=== PATIENT | female | born 1955 | race Caucasian/White ===

== ENCOUNTER → 2017-01-23 | Outpatient (CLI) | payer OTHER ==
[~2017-01-23] MED LIST: AMIT25TA PO; AMLO10TA PO; COCO1000 PO; COUM1TAB14 PO; CYCL10TA PO; DOCU10CA PO; DULO1CAP2 PO; FISH100049 PO; FISHCAP5 PO; GLUC15002 PO; HYDR-3713 PO; MIRA3350 PO; MOM30SS PO; MULTCAP PO; POLY150C5 PO; PROT1TAB2 PO; ROXI1TAB2 PO; SENO8.6T2 PO; TYLE325T5 PO; VITA200038 PO; VITA500T3 PO; VOLT1GEL24 TD
[2017-01-23 11:15] LABS: BASO % 0.4 % (0.0-1.0); EOS # 0.1 K/mm3 (0.0-0.50); EOS % 2.3 % (0.0-3.0); LYMPH # 1.4 K/mm3 (1.5-4.5); LYMPH % 32.1 % (24.0-44.0); MEAN CORPUSCULAR HEMOGLOBIN 31.9 pg (27.0-33.0); MEAN CORPUSCULAR HGB CONC 34.9 g/dl (32.0-36.5); MEAN CORPUSCULAR VOLUME 91.6 fl (80.0-96.0); MONO # 0.3 K/mm3 (0.0-0.8); MONO % 6.6 % (0.0-5.0); NEUTROPHILS # 2.4 K/mm3 (1.8-7.7); RED CELL DISTRIBUTION WIDTH 13.8 % (11.5-14.5); WHITE BLOOD COUNT 4.3 K/mm3 (4.0-10.0)
[2017-01-23 11:46] LABS: ALBUMIN 3.4 GM/DL (3.2-5.2); ALBUMIN/GLOBULIN RATIO 1.26 (1.00-1.93); ALKALINE PHOSPHATASE 88 U/L (45-117); ALT/SGPT 28 U/L (12-78); ANION GAP 7 MEQ/L (8-16); AST/SGOT 15 U/L (15-37); BILIRUBIN,TOTAL 0.5 MG/DL (0.2-1.0); BLOOD UREA NITROGEN 19 MG/DL (7-18); CALCIUM LEVEL 8.7 MG/DL (8.5-10.1); CARBON DIOXIDE LEVEL 28 MEQ/L (21-32); CHLORIDE LEVEL 112 MEQ/L (98-107); CHOLESTEROL LEVEL 144 MG/DL (<200); CREATININE FOR GFR 0.92 MG/DL (0.55-1.02); FREE T4 1.03 NG/DL (0.76-1.46); GLOMERULAR FILTRATION RATE > 60.0 (>51); GLUCOSE, FASTING 89 MG/DL (70-105); POTASSIUM SERUM 4.1 MEQ/L (3.5-5.1); SODIUM LEVEL 147 MEQ/L (136-145); TOTAL PROTEIN 6.1 GM/DL (6.4-8.2); TRIGLYCERIDES LEVEL 96 MG/DL (<150)
== END ==
LOC: M LRY 08:09
PROVIDERS: ATTEND Nurse Practitioner Adult Health
DX: D64.9 Anemia, unspecified (principal); E55.9 Vitamin D deficiency, unspecified; Z79.899 Other long term (current) drug therapy; I10 Essential (primary) hypertension

== ENCOUNTER → 2017-05-07 | Outpatient (CLI) | payer OTHER ==
[2017-05-07 12:08] LABS: BASO % 0.9 % (0.0-1.0); EOS # 0.1 K/mm3 (0.0-0.50); EOS % 2.2 % (0.0-3.0); LARGE UNSTAINED CELL # 0.1 K/mm3 (0.0-0.4); LARGE UNSTAINED CELL % 2.4 % (0.0-4.0); LYMPH # 1.4 K/mm3 (1.5-4.5); LYMPH % 32.2 % (24.0-44.0); MEAN CORPUSCULAR HEMOGLOBIN 32.8 pg (27.0-33.0); MEAN CORPUSCULAR HGB CONC 34.8 g/dl (32.0-36.5); MEAN CORPUSCULAR VOLUME 94.2 fl (80.0-96.0); MONO # 0.3 K/mm3 (0.0-0.8); MONO % 7.1 % (0.0-5.0); NEUTROPHILS # 2.3 K/mm3 (1.8-7.7); NEUTROPHILS % 55.3 % (36.0-66.0); PLATELET COUNT, AUTOMATED 220 k/mm3 (150-450); RED CELL DISTRIBUTION WIDTH 13.3 % (11.5-14.5); WHITE BLOOD COUNT 4.2 K/mm3 (4.0-10.0)
[2017-05-07 12:25] LABS: ALBUMIN 3.3 GM/DL (3.2-5.2); ALBUMIN/GLOBULIN RATIO 1.22 (1.00-1.93); ALKALINE PHOSPHATASE 86 U/L (45-117); ALT/SGPT 27 U/L (12-78); ANION GAP 3 MEQ/L (8-16); AST/SGOT 14 U/L (15-37); BILIRUBIN,TOTAL 0.6 MG/DL (0.2-1.0); BLOOD UREA NITROGEN 14 MG/DL (7-18); CALCIUM LEVEL 8.8 MG/DL (8.5-10.1); CARBON DIOXIDE LEVEL 30 MEQ/L (21-32); CHLORIDE LEVEL 113 MEQ/L (98-107); CHOLESTEROL LEVEL 134 MG/DL (<200); CREATININE FOR GFR 0.91 MG/DL (0.55-1.02); FREE T4 1.02 NG/DL (0.76-1.46); GLOMERULAR FILTRATION RATE > 60.0 (>51); GLUCOSE, FASTING 79 MG/DL (70-105); POTASSIUM SERUM 4.1 MEQ/L (3.5-5.1); SODIUM LEVEL 146 MEQ/L (136-145); TRIGLYCERIDES LEVEL 107 MG/DL (<150)
== END ==
LOC: M LRY 07:54
PROVIDERS: ATTEND Nurse Practitioner Adult Health
DX: Z79.899 Other long term (current) drug therapy (principal); D64.9 Anemia, unspecified; E55.9 Vitamin D deficiency, unspecified; F41.9 Anxiety disorder, unspecified

== ENCOUNTER → 2017-11-10 | Outpatient (CLI) | payer MEDICARE, BC ==
[~2017-11-10] MED LIST changes: -SENO8.6T2 PO; +SENO8.6T5 PO; +VOLT1GEL15 TD; -VOLT1GEL24 TD
--- NOTE | 2017-11-10 10:09 | REPMRS ---
Patient History The patient states she had a clinical breast exam in 11/09 Family history of colorectal cancer in father at age 50 or over. Benign excisional biopsy of the left breast, 1981. Digital Woman Screen Mammo: November 10, 2017 - Exam #: [id number] Bilateral CC and MLO view(s) were taken. Technologist: Cathi Friedman, Technologist Prior study comparison: November 08, 2016, digital woman screen mammo performed at [facility]. November 07, 2015, digital woman screen mammo performed at [facility]. FINDINGS: There are scattered fibroglandular densities. There has been no change in the appearance of the mammogram from the prior studies. There is a mild amount of residual fibroglandular tissue which is fairly symmetric. There is no interval development of dominant mass, architectural distortion, or clustered microcalcification suggestive of malignancy. ASSESSMENT: BI-RADS/ACR category 1 mammogram. Negative. Recommendation Routine screening mammogram in 1 year (for women over age 40). This mammogram was interpreted with the aid of an FDA-approved computer-aided dectection system. Electronically Signed By: Santy Mart MD 11/10/17 [id number]
== END ==
LOC: M WHC 08:06
PROVIDERS: ATTEND Nurse Practitioner Family
DX: Z12.31 Encounter for screening mammogram for malignant neoplasm of breast (principal); Z92.89 Personal history of other medical treatment

== ENCOUNTER → 2017-12-19 | Outpatient (CLI) | payer MEDICARE, OTHER ==
[2017-12-19 12:13] LABS: ESTIMATED AVERAGE GLUCOSE 94 MG/DL (60-110); HEMOGLOBIN A1c 4.9 %
[2017-12-19 12:14] LABS: TOTAL 25(OH) VITAMIN D 28.7 NG/ML (30.0-100.0)
[2017-12-19 12:19] LABS: ALBUMIN 3.4 GM/DL (3.2-5.2); ALBUMIN/GLOBULIN RATIO 1.21 (1.00-1.93); ALKALINE PHOSPHATASE 86 U/L (45-117); ALT/SGPT 17 U/L (12-78); ANION GAP 5 MEQ/L (8-16); AST/SGOT 10 U/L (7-37); BILIRUBIN,TOTAL 0.6 MG/DL (0.2-1.0); BLOOD UREA NITROGEN 19 MG/DL (7-18); CALCIUM LEVEL 8.6 MG/DL (8.8-10.2); CARBON DIOXIDE LEVEL 29 MEQ/L (21-32); CHLORIDE LEVEL 112 MEQ/L (98-107); CHOLESTEROL LEVEL 154 MG/DL (<200); CHOLESTEROL RISK RATIO 2.444 (<5); CREATININE FOR GFR 0.85 MG/DL (0.55-1.02); FREE T4 1.05 NG/DL (0.76-1.46); GLOMERULAR FILTRATION RATE > 60.0 (>45); GLUCOSE, FASTING 89 MG/DL (70-100); HDL CHOLESTEROL 63 MG/DL (>40); LDL CHOLESTEROL 70.8 MG/DL (<100); NON-HDL-C 91 MG/DL; POTASSIUM SERUM 4.2 MEQ/L (3.5-5.1); SODIUM LEVEL 146 MEQ/L (136-145); TOTAL PROTEIN 6.2 GM/DL (6.4-8.2); TRIGLYCERIDES LEVEL 101 MG/DL (<150)
[2017-12-19 12:28] LABS: BASO % 0.5 % (0.0-1.0); EOS # 0.1 10^3/uL (0.0-0.50); EOS % 2.1 % (0.0-3.0); HEMATOCRIT 38.2 % (36.0-47.0); HEMOGLOBIN 12.8 g/dl (12.0-16.0); IMMATURE GRANULOCYTE % 0.3 % (0-0); LYMPH # 1.3 10^3/uL (1.5-4.5); MEAN CORPUSCULAR HEMOGLOBIN 32.3 pg (27.0-33.0); MEAN CORPUSCULAR HGB CONC 33.5 g/dl (32.0-36.5); MEAN CORPUSCULAR VOLUME 96.5 fl (80.0-96.0); MONO # 0.3 10^3/uL (0.0-0.8); MONO % 6.5 % (0.0-5.0); NEUTROPHILS # 2.2 10^3/uL (1.8-7.7); NEUTROPHILS % 57.6 % (36.0-66.0); PLATELET COUNT, AUTOMATED 211 10^3/uL (150-450); RED BLOOD COUNT 3.96 10^6/uL (4.00-5.40); RED CELL DISTRIBUTION WIDTH 13.3 % (11.5-14.5); WHITE BLOOD COUNT 3.9 10^3/uL (4.0-10.0)
== END ==
LOC: M LRY 07:55
DX: E55.9 Vitamin D deficiency, unspecified (principal); Z98.84 Bariatric surgery status; Z79.899 Other long term (current) drug therapy; D64.9 Anemia, unspecified
CPT/HCPCS: 84443

== ENCOUNTER 2018-01-11 16:28 | Emergency (ER) | payer OTHER, MEDICARE ==
[2018-01-11] MEDS ORDERED: NORCO 5/325MG TABLET (BULK FOR ED) PO (18:00)
== END 2018-01-11 18:01 | disposition home or self-care (01) ==
LOC: M ED 16:28
DX: Z04.1 Encounter for examination and observation following transport accident (principal); S13.4XXA Sprain of ligaments of cervical spine, initial encounter; V43.52XA Car driver injured in collision with other type car in traffic accident, initial encounter; Y92.410 Unspecified street and highway as the place of occurrence of the external cause; I10 Essential (primary) hypertension; F33.9 Major depressive disorder, recurrent, unspecified; M19.90 Unspecified osteoarthritis, unspecified site; M54.9 Dorsalgia, unspecified; G89.29 Other chronic pain; Z79.01 Long term (current) use of anticoagulants; Z79.899 Other long term (current) drug therapy; Z88.0 Allergy status to penicillin; Z88.5 Allergy status to narcotic agent; Z98.0 Intestinal bypass and anastomosis status; Z98.890 Other specified postprocedural states
CPT/HCPCS: 72125

== ENCOUNTER → 2018-05-18 | Outpatient (CLI) | payer MEDICARE, OTHER ==
[2018-05-18 12:24] LABS: BASO % 0.6 % (0.0-1.0); EOS # 0.1 10^3/uL (0.0-0.50); EOS % 1.5 % (0.0-3.0); HEMATOCRIT 38.5 % (36.0-47.0); HEMOGLOBIN 13.5 g/dl (12.0-15.5); IMMATURE GRANULOCYTE % 0.2 % (0-3.0); LYMPH # 1.5 10^3/uL (1.5-4.5); LYMPH % 31.8 % (24.0-44.0); MEAN CORPUSCULAR HEMOGLOBIN 32.3 pg (27.0-33.0); MEAN CORPUSCULAR HGB CONC 35.1 g/dl (32.0-36.5); MEAN CORPUSCULAR VOLUME 92.1 fl (80.0-96.0); MONO # 0.3 10^3/uL (0.0-0.8); MONO % 6.4 % (0.0-5.0); NEUTROPHILS # 2.8 10^3/uL (1.8-7.7); NEUTROPHILS % 59.5 % (36.0-66.0); PLATELET COUNT, AUTOMATED 202 10^3/uL (150-450); RED BLOOD COUNT 4.18 10^6/uL (4.00-5.40); RED CELL DISTRIBUTION WIDTH 13.8 % (11.5-14.5); WHITE BLOOD COUNT 4.7 10^3/uL (4.0-10.0)
[2018-05-18 13:27] LABS: ESTIMATED AVERAGE GLUCOSE 100 MG/DL (60-110); HEMOGLOBIN A1c 5.1 %
[2018-05-18 14:28] LABS: ALBUMIN 3.6 GM/DL (3.2-5.2); ALBUMIN/GLOBULIN RATIO 1.29 (1.00-1.93); ALKALINE PHOSPHATASE 101 U/L (45-117); ALT/SGPT 24 U/L (12-78); ANION GAP 8 MEQ/L (8-16); AST/SGOT 14 U/L (7-37); BILIRUBIN,TOTAL 0.7 MG/DL (0.2-1.0); BLOOD UREA NITROGEN 17 MG/DL (7-18); CALCIUM LEVEL 8.9 MG/DL (8.8-10.2); CARBON DIOXIDE LEVEL 28 MEQ/L (21-32); CHLORIDE LEVEL 109 MEQ/L (98-107); CHOLESTEROL LEVEL 170 MG/DL (<200); CHOLESTEROL RISK RATIO 2.786 (<5); CREATININE FOR GFR 0.91 MG/DL (0.55-1.30); FREE T4 0.94 NG/DL (0.76-1.46); GLOMERULAR FILTRATION RATE > 60.0 (>45); GLUCOSE, FASTING 82 MG/DL (70-100); HDL CHOLESTEROL 61 MG/DL (>40); LDL CHOLESTEROL 89.4 MG/DL (<100); NON-HDL-C 109 MG/DL; POTASSIUM SERUM 4.1 MEQ/L (3.5-5.1); SODIUM LEVEL 145 MEQ/L (136-145); TOTAL PROTEIN 6.4 GM/DL (6.4-8.2); TRIGLYCERIDES LEVEL 98 MG/DL (<150)
== END ==
LOC: M LAB 11:54
DX: D64.9 Anemia, unspecified (principal); E55.9 Vitamin D deficiency, unspecified; Z51.81 Encounter for therapeutic drug level monitoring; Z79.899 Other long term (current) drug therapy; H02.423 Myogenic ptosis of bilateral eyelids
CPT/HCPCS: 84443

== ENCOUNTER → 2018-05-18 | Outpatient (CLI) | payer MEDICARE, OTHER ==
[2018-05-18 13:30] LABS: COLLAGEN EPINEPHRINE > 300 SECONDS (74-162)
[2018-05-18 13:31] LABS: COLLAGEN ADP 106 SECONDS (56-103)
== END ==
LOC: M LAB 11:47
DX: H02.423 Myogenic ptosis of bilateral eyelids (principal)

== ENCOUNTER → 2018-05-21 | Outpatient (CLI) | payer MEDICARE, OTHER | LOC: M LRY 13:55 | DX: Z01.812 Encounter for preprocedural laboratory examination (principal) | CPT/HCPCS: 71046 ==

== ENCOUNTER → 2018-06-01 | Outpatient (CLI) | payer MEDICARE, OTHER, BC ==
[2018-06-01 09:42] LABS: COLLAGEN EPINEPHRINE 83 SECONDS (74-162)
== END ==
LOC: M LAB 08:17
DX: H02.423 Myogenic ptosis of bilateral eyelids (principal)
CPT/HCPCS: 36415

== ENCOUNTER → 2018-06-04 | Outpatient (CLI) | payer MEDICARE, OTHER, BC ==
[2018-06-04 20:35] LABS: URIC ACID 5.2 MG/DL (2.6-6.0)
[2018-06-04 20:36] LABS: BASO % 0.3 % (0.0-1.0); EOS % 0.4 % (0.0-3.0); HEMATOCRIT 38.9 % (36.0-47.0); HEMOGLOBIN 13.2 g/dl (12.0-15.5); IMMATURE GRANULOCYTE % 0.3 % (0-3.0); LYMPH # 2.6 10^3/uL (1.5-4.5); LYMPH % 28.8 % (24.0-44.0); MEAN CORPUSCULAR HEMOGLOBIN 32.2 pg (27.0-33.0); MEAN CORPUSCULAR HGB CONC 33.9 g/dl (32.0-36.5); MEAN CORPUSCULAR VOLUME 94.9 fl (80.0-96.0); MONO # 0.5 10^3/uL (0.0-0.8); MONO % 5.3 % (0.0-5.0); NEUTROPHILS # 5.9 10^3/uL (1.8-7.7); NEUTROPHILS % 64.9 % (36.0-66.0); PLATELET COUNT, AUTOMATED 229 10^3/uL (150-450); RED CELL DISTRIBUTION WIDTH 13.6 % (11.5-14.5); WHITE BLOOD COUNT 9.1 10^3/uL (4.0-10.0)
[2018-06-04 21:43] LABS: ERYTHROCYTE SEDIMENTATION RATE 6 mm/hr (0-30)
[2018-06-16 00:07] LABS: ANTINUCLEAR ANTIBODIES DIRECT Negative (Negative); HLA-B27 Negative (.)
== END ==
LOC: M LRY 16:14
DX: M10.9 Gout, unspecified (principal)
CPT/HCPCS: 84550

== ENCOUNTER 2018-06-18 09:22 | Day surgery (SDC) | payer MEDICARE, BC, OTHER ==
[2018-06-18] MEDS: NS 1,000 ML IV (09:30)
[2018-06-18] MEDS ORDERED: LIDOCAINE 2% INJ 100 MG/5 ML SDV (FOR ANES.) As Ordered (10:46)
[2018-06-18] MEDS ORDERED: PROPOFOL 200 MG/20 ML VIAL As Ordered (10:46)
== END 2018-06-18 11:27 | disposition home or self-care (01) ==
LOC: M OPP 09:22
DX: Z12.11 Encounter for screening for malignant neoplasm of colon (principal); Z80.0 Family history of malignant neoplasm of digestive organs; K57.30 Diverticulosis of large intestine without perforation or abscess without bleeding; I10 Essential (primary) hypertension; M19.90 Unspecified osteoarthritis, unspecified site; M54.9 Dorsalgia, unspecified; F32.9 Major depressive disorder, single episode, unspecified; Z98.84 Bariatric surgery status; Z96.653 Presence of artificial knee joint, bilateral; E66.9 Obesity, unspecified; Z88.5 Allergy status to narcotic agent; Z88.0 Allergy status to penicillin; Z79.82 Long term (current) use of aspirin; Z79.899 Other long term (current) drug therapy
CPT/HCPCS: G0105

== ENCOUNTER → 2019-02-02 | Outpatient (CLI) | payer MEDICARE, BC ==
[~2019-02-02] MED LIST changes: +ASPI1TAB PO; +BENA25CA4 PO; +D-10TAB PO; +FURO40TA2; +KRIL1CAP5 PO; +METH4PACK; +OLME40TA PO; +RANI-280 PO; +TIZA4CAP; +VALS1TAB47
--- NOTE | 2019-02-02 11:45 | REPMRS ---
Patient History The patient states she had a clinical breast exam in 02/09 Family history of colorectal cancer at age 50 or over in father. Benign excisional biopsy of the left breast, 1982. Digital Woman Screen Mammo: February 02, 2019 - Exam #: [id number] Bilateral CC and MLO view(s) were taken. Technologist: Cathi Friedman, Technologist Prior study comparison: November 10, 2017, digital woman screen mammo performed at [facility]. November 08, 2016, digital woman screen mammo performed at [facility]. FINDINGS: There are scattered fibroglandular densities. There has been no change in the appearance of the mammogram from the prior studies. There is a mild amount of residual fibroglandular tissue which is fairly symmetric. There is no interval development of dominant mass, architectural distortion, or clustered microcalcification suggestive of malignancy. Scattered lymph nodes are seen in the axillae. Large coarse benign appearing calcifications are stable on the left. There is a benign appearing intramammary node in the upper outer quadrant of the left breast. 3-D tomosynthesis shows no additional findings. No significant changes when compared with prior studies. Assessment: BI-RADS/ACR category 2 mammogram. Benign Findings. Recommendation Routine screening mammogram in 1 year (for women over age 40). This mammogram was interpreted with the aid of an FDA-approved computer-aided dectection system. A. Negative x-ray reports should not delay biopsy if a dominant or clinically suspicious mass is present. B. Four to eight percent of cancers are not identified by mammography. C. Adenosis and dense breast may obscure an underlying neoplasm. Electronically Signed By: Wesley Fox MD 02/02/19 [id number]
== END ==
LOC: M WHC 07:59
PROVIDERS: ATTEND Nurse Practitioner Family
DX: Z01.419 Encounter for gynecological examination (general) (routine) without abnormal findings (principal); Z12.31 Encounter for screening mammogram for malignant neoplasm of breast; R92.1 Mammographic calcification found on diagnostic imaging of breast; Z86.018 Personal history of other benign neoplasm
CPT/HCPCS: 77063; 77067; G0101

== ENCOUNTER → 2020-01-18 | Outpatient (CLI) | payer MEDICARE, BC, OTHER ==
[~2020-01-18] MED LIST changes: -ASPI1TAB PO; +ASPI81TA26 PO; +CYAN500T8 PO; +CYCL-707 PO; -CYCL10TA PO; -DULO1CAP2 PO; +DULO1CAP5 PO; -VALS1TAB47; +VALS1TAB67; -VITA500T3 PO
--- NOTE | 2020-01-18 15:27 | REPMRS ---
Patient History The patient states she has not had a clinical breast exam in over a year. Family history of colorectal cancer at age 50 or over in father. Benign excisional biopsy of the left breast, 1982. Diagnostic Bilateral Mammo: January 18, 2020 - Exam #: [id number] Bilateral CC and MLO view(s) were taken. Technologist: Sandy Ortiz, Technologist Prior study comparison: February 02, 2019, bilateral digital woman screen mammo performed at [facility]. November 10, 2017, digital woman screen mammo performed at [facility]. November 08, 2016, digital woman screen mammo performed at [facility]. FINDINGS: There are scattered fibroglandular densities. There has been no change in the appearance of the mammogram from the prior studies. There is a mild amount of scattered fibroglandular density which is fairly symmetric. There is no interval development of dominant mass, architectural distortion, or grouped microcalcification suggestive of malignancy. 3-D tomosynthesis shows no additional findings. Assessment: BI-RADS/ACR category 1 mammogram. Negative Mammogram. Recommendation Routine screening mammogram of both breasts in 1 year (for women over age 40). This patient's Lifetime Breast Cancer Risk is estimated at 5.7 %. This mammogram was interpreted with the aid of an FDA-approved computer-aided dectection system. Electronically Signed By: Rogelio Palomo MD 01/18/20 [id number]
== END ==
LOC: M WHC 13:31
PROVIDERS: ATTEND Nurse Practitioner Adult Health
DX: N64.4 Mastodynia (principal); Z80.0 Family history of malignant neoplasm of digestive organs; Z86.018 Personal history of other benign neoplasm
CPT/HCPCS: 77066; G0279

== ENCOUNTER → 2020-02-28 | Outpatient (CLI) | payer MEDICARE, BC, OTHER ==
[~2020-02-28] MED LIST changes: -CYCL-707 PO; +CYCL10TA PO
--- NOTE | 2020-02-28 11:45 | REP ---
RIGHT HAND, AP AND LATERAL: AP and lateral views of the right hand are performed. There is no acute fracture or dislocation. Ill-defined focal calcifications are seen medial to the 1st metacarpophalangeal joint. These are nonspecific. This could be due to prior trauma. There is mild diffuse narrowing of the proximal interphalangeal joints as well as 3rd distal interphalangeal joint. There is mild narrowing of the 1st metacarpophalangeal joint. Moderate narrowing is seen of the 2nd, 4th, and 5th distal interphalangeal joints with mild to moderate spurring. IMPRESSION: Degenerative changes most significant at the distal interphalangeal joints of the 2nd through 5th digits. Focal ill-defined calcifications in the soft tissues medial to the 1st metacarpophalangeal joint, nonspecific. This may be due to prior trauma. Electronically Signed by Santy Mart MD 02/28/2020 03:11 P
== END ==
LOC: M LRY 09:38
PROVIDERS: ATTEND Nurse Practitioner Adult Health
DX: M19.041 Primary osteoarthritis, right hand (principal)

== ENCOUNTER → 2020-12-24 | Outpatient (CLI) | payer MEDICARE, BC, OTHER ==
[~2020-12-24] MED LIST changes: -AMIT25TA PO; +AMIT25TA17 PO; -COUM1TAB14 PO; +COUM4TAB8 PO; +CYAN500T14 PO; -CYAN500T8 PO; +CYCL-707 PO; -CYCL10TA PO; +GABA-282 PO; +IRBE300T7 PO; +SIMV20TA22 PO; +TRAM50TA2 PO
== END ==
LOC: M LABSMTC 08:31
PROVIDERS: ATTEND Anesthesiology
DX: Z01.812 Encounter for preprocedural laboratory examination (principal); Z20.822 Contact with and (suspected) exposure to COVID-19

== ENCOUNTER 2020-12-29 06:08 | Day surgery (SDC) | payer MEDICARE, BC, OTHER ==
[~2020-12-29] VITALS: Ht 157.5 cm; Wt 98.0 kg
--- OUTSIDE RECORDS SUMMARY | 2020-12-29 06:12 | CCD ---
Author Author [facility] Organization [facility] Address Unknown Phone Unavailable Care Team Providers Care Flooring Installer Name Role Phone Orin Eric Unavailable PROBLEMS Type Condition ICD9-CM Code [id number] Code Onset Dates Condition S tatus SNOMED Code Notes Problem Bariatric surgery status Z98.84 Active 0148507 06 Problem Generalized osteoarthrosis, involving multiple sites M15.9 Active 360343375 Problem Vitamin D deficiency E55.9 Active 44038922 Problem Rectocele N81.6 Active 143729252 Problem Prolapse of vaginal plunkett without uterine prolapse N81.10 Active 612937150 Problem Vaginal enterocele N81.5 Active 149995125 Problem Insomnia, unspecified G47.00 Active 270424326 Problem Panniculitis M79.3 Active 43415787 Problem Dysthymic disorder F34.1 Active 21571795 Problem Enterocele 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 Active 933977065 ALLERGIES Allergen (clinical drug ingredient) Drug/Non Drug Allergy do cumented on EMR Reaction Allergy Type Onset Date Status morphine vomiting Non Drug Allergy Active PCN swelling Non Drug Allergy Active ENCOUNTERS from 1957 to 2020-10-03 Encounter Location Date Provider Diagnosis [facility] [address] [place] [phone] Sep, Orin Eric IMMUNIZATIONS Vaccine Route Administration Date Status TDAP 0.5mL (Boostrix) IM Intramuscular Jan 18, 2013 Administe red Influenza (6mo & up) Fluzone Unknown January 29, 2016 Ref used Influenza (6mo & up) Fluzone Unknown Dec 19, 2014 Ref used SOCIAL HISTORY Tobacco Use: Social History Observation Description Date Details (start date - stop date) Never Smoker Sex Assigned At : Social History Observation Description Sex Assigned At Unknown Education: Question Answer Notes Level of Education: High School Congregational: Question Answer Notes Congregational 33 None Alcohol Screening: Question Answer Notes Did you have a drink containing alcohol in the past year? No Points 0 Interpretation Negative BMI Care Goal Follow-Up Question Answer Notes Above Normal BMI Follow-Up Giving encouragement to exercise Tobacco Use: Question Answer Notes Are you a: never smoker never smoker REASON FOR REFERRAL No Information VITAL SIGNS No information MEDICATIONS Medication SIG (Take, Route, Frequency, Duration) Start Date En d Date Status Tizanidine HCl 4 MG 1 capsule as needed Orally Three times a day Active Gabapentin 300 MG 1 capsule Orally Once a day for 30 day(s) Active Tramadol HCl 50 MG 1 tablet as needed Orally Once a day Active Vitamin C 1000 MG 1 tablet Orally Once a day for 30 day(s) Active Multivitamins as directed Orally Active Vitamin D 2000 UNIT 1 tablet Orally Once a day Active Vitamin B 12 100 MCG 1 Orally takes 1000mcg. Active Simvastatin 20 MG 1 tablet in the evening Orally Once a day for 30 day(s) Active Pramipexole Dihydrochloride 0.25 MG 1 tablet Orally Once a day as n eeded Active Krill Oil 1000 MG as directed Orally Acti ve Furosemide 20 MG 1 tablet Orally Once a day/as needed Active Aspirin Adult Low Strength A ctive Irbesartan 300 MG 1 tablet Orally Once a day for 30 day(s) Active PROCEDURES No Information RESULTS No Results REASON FOR VISIT AUTHORIZATION MEDICAL (GENERAL) HISTORY Type Description Date Medical History insomnia Medical History hx. of elvated cholesterol Medical History hx. of hypertension Medical History hx. of depression Medical History knee pain SOS Medical History Vitamin d deficiency Medical History chronic back pain Sees SOS Medical History arthritic joints Surgical History gastric bypass 01/03 Surgical History CECIL with bilateral salpingectomy 07/29 Surgical History breast lump removed-left/benign 2001 Surgical History colonoscopy Surgical History lasik 11/02 Surgical History left total knee done 03/2015 Surgical History right total knee 11/2015 Hospitalization History see surgeries Goals Section No Information Health Concerns No Information MEDICAL EQUIPMENT No Information MENTAL STATUS No Information FUNCTIONAL STATUS No Information ASSESSMENTS No Information PLAN OF TREATMENT Next Appt Details Provider Name:Orin Eric, 2020-10-31 0 8:20:00 AM, [facility] [place], [phone], Provider Name:Orin Eric, 2020-12-07 0 3:00:00 PM, [address] [place] [address], [phone], Provider Name:Orin Eric, 2021-01-05 0 7:30:00 AM, [address] [place] [address], [phone], Provider Name:Ron Hartman, 2021-01-05 07:30:00 AM, [address] [place] [address], [phone], Provider Name:Orin Eric, 2021-01-22 0 8:20:00 AM, [address] [place] [address], [phone], Provider Name:Orin Eric, 2021-02-20 0 8:20:00 AM, [address] [place] [address], [phone], Insurance Providers Payer Name Payer Address Payer Phone Insured Name Patient Relati onship to Insured Coverage Start Date Coverage End Date MEDICARE Part A and B [address] [facility] [phone] [employer] [facility] [address] [facility] [id number] [employer]DOÑE[employer]
--- OUTSIDE RECORDS SUMMARY | 2020-12-29 06:12 | CCD ---
Author Author [facility] Organization [facility] Address Unknown Phone Unavailable Care Team Providers Care Business Intelligence Reporting Analyst Name Role Phone Orin Eric Unavailable PROBLEMS Type Condition ICD9-CM Code [id number] Code Onset Dates Condition S tatus SNOMED Code Notes Problem Bariatric surgery status Z98.84 Active 9099284 06 Problem Generalized osteoarthrosis, involving multiple sites M15.9 Active 646984682 Problem Vitamin D deficiency E55.9 Active 11458874 Problem Rectocele N81.6 Active 178611153 Problem Prolapse of vaginal plunkett without uterine prolapse N81.10 Active 813977166 Problem Vaginal enterocele N81.5 Active 757927570 Problem Insomnia, unspecified G47.00 Active 414587242 Problem Panniculitis M79.3 Active 06657636 Problem Dysthymic disorder F34.1 Active 38425324 Problem Enterocele K46.9 Active 689651611 ALLERGIES Allergen (clinical drug ingredient) Drug/Non Drug Allergy do cumented on EMR Reaction Allergy Type Onset Date Status morphine vomiting Non Drug Allergy Active PCN swelling Non Drug Allergy Active ENCOUNTERS from 1957 to 2020-12-17 Encounter Location Date Provider Diagnosis [facility] [address] [place] [phone] 14 Nov, 2020 Orin Hernesto Rectocele N81.6 IMMUNIZATIONS Vaccine Route Administration Date Status TDAP [...] History Observation Description Sex Assigned At Unknown Tobacco Use: Question Answer Notes Are you a: never smoker never smoker REASON FOR REFERRAL No Information VITAL SIGNS Weight 216 lbs Nov, Height 62 in Nov, BMI 39.5 kg/m2 Nov, Blood pressure systolic 134 mm Hg Nov, Blood pressure diastolic 86 mm Hg Nov, MEDICATIONS Medication SIG (Take, Route, Frequency, Duration) Notes Start Da te End Date Status Ibuprofen 800 MG 1 tablet with food or milk as needed Ora lly Three times a day Nov, Active Furosemide 20 MG 1 tablet Orally Once a day/as needed Active Multivitamins as directed Orally Act trav Krill Oil 1000 MG as directed Orally Active Pramipexole Dihydrochloride 0.25 MG 1 tablet Orally Once a day as nee ded Not-Taking Vitamin C 1000 MG 1 tablet Orally Once a day for 30 day(s) Active Vitamin D 2000 UNIT 1 tablet Orally Once a day Active Gabapentin 300 MG 1 capsule Orally Once a day for 30 day(s) Active Irbesartan 300 MG 1 tablet Orally Once a day for 30 day(s) Active Tizanidine HCl 4 MG 1 capsule as needed Orally Three times a day Active Simvastatin 20 MG 1 tablet in the evening Orally Once a day for 30 da y(s) Active Percocet 5-325 MG 1 tablet as needed Orally every 6 hrs Nov, Active Vitamin B 12 100 MCG 1 Orally takes 1000mcg. Active Aspirin Adult Low Strength Active Tramadol HCl 50 MG 1 tablet as needed Orally Once a day Active PROCEDURES No Information RESULTS No Results REASON FOR VISIT PRE OP SURG 01/05/21 MEDICAL (GENERAL) HISTORY Type Description Date Medical [...] No Information FUNCTIONAL STATUS No Information ASSESSMENTS Encounter Date Diagnosis Assessment Notes Treatment Notes Treatm ent Clinical Notes Nov, Rectocele (ICD-10 - N81.6) Pre-Operative CounselingProcedure: anterior and posterior repairsSurgeon: Orin Eric MD Asst: Ron Hartman M.D. Patient has been counseling regarding the risks of the procedure to include anesthesia risks to include , bleeding/need for blood transfusion, infection, damage to internal organs, postoperative pain and need for future surgery based on findings. She understands these risks and wishes to proceed with the above procedure. PLAN OF TREATMENT Medication Medication Name Sig Start Date Stop Date Ibuprofen 800 MG 1 tablet with food or milk as needed Ora lly Three times a day Nov, Percocet 5-325 MG 1 tablet as needed Orally every 6 hrs Nov, Treatment Notes Assessment Notes Clinical Notes Rectocele Pre-Operative Counse lingProcedure: anterior and posterior repairsSurgeon: Orin Eric MDAsst: Ron Hartman M.D. Patient has been counseling regarding the risks of the procedure to include anesthesia risks to include , bleeding/need for blood transfusion, infection, damage to internal organs, postoperative pain and need for future surgery based on findings. She understands these risks and wishes to proceed with the above procedure. Next Appt Details Provider Name:Orin Eric, 2020-12-29 0 7:30:00 AM, [address] [place] [address], [phone], Provider Name:Ron Hartman 2020-12-29 07:30:00 AM, [address] [place] [address], [phone], Provider Name:Orin Eric 2021-01-22 0 8:00:00 AM, [address] [place] [address], [phone], Provider Name:Orin Eric 2021-02-09 0 8:20:00 AM, [address] [place] [address], [phone], Insurance Providers Payer Name Payer Address Payer Phone Insured Name Patient Relati onship to Insured Coverage Start Date Coverage End Date [facility] [address] [facility] [id number] [employer] ORDO[employer] self MEDICARE Part A and B [address] [facility] [phone] [employer] ORDOÑE[employer] self
--- OUTSIDE RECORDS SUMMARY | 2020-12-29 06:12 | CCD | Continuity of Care Document ---
Author Author Kristin LINDSEY Organization Unknown Address [address] [place] [address] [address] [place] [address] Phone [phone] Care Team Providers Care Senior Infrastructure Engineer Name Role Phone Kaity Lindsey AUTM [phone] [facility] AUTM Odette Alejandro DPM pc AUTM [phone] [facility] [employer] [facility] AUTM [phone] Problems Active Problems Provider Date Gout DIANNE LoyaM-pc Onset: 06/04/2018 Pain in limb DIANNE LoyaM-pc Onset: 06/04/2018 Osteoarthritis KIANA Loyapc Onset: 06/04/2018 Type II diabetes mellitus uncontrolled RENEE Powell P AIR PUMP[employer] Onset: 10/02/2018 Essential hypertension RENEE Powell, PNP Onset: 2017 Obesity RENEE Powell, PNP Onset: 9 Anxiety state RENEE Powell PNP Onset: 9 Anemia RENEE Powell, PNP Onset: 9 Achilles tendinitis, unspecified leg Odette Alejandro DPM-pc Onset: 06/06/2020 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 Luca Loya Onset: 06/06/2020 Social History Type Date Description Comments Sex Unknown Tobacco Use Start: Unknown Never Smoked Cigarettes Tobacco Use Start: Unknown Never Smoked Cigars Tobacco Use Start: Unknown Never Smoked A Pipe Smoking Status Reviewed: 06/21/20 Never Smoked A Pipe Tobacco Use Start: Unknown Never Used Smokeless Tobacco ETOH Use Denies alcohol use Tobacco Use Start: Unknown Patient has never smoked Recreational Drug Use Denies Drug Use Allergies, Adverse Reactions, Alerts Active Allergies Reaction Severity Comments Date Penicillin Urticaria 06/04/2018 Morphine Nausea and Vomiting 06/04/20 18 Medications Active Medications SIG Qnty Indications Ordering Provide r Date Irbesartan 300mg Tablets 1 by mouth every day 90tabs RENEE Powell, PNP 08/03/20 20 Aspir-[address] 1 by mouth every day 30tabs RENEE Powell, PNP 10/02/20 18 Tizanidine HCL 4mg Tablets 1 by mouth every day as needed 270tabs Unknown B12 Fast Dissolve 1000mg Tablets D ispers 1 daily Unknown Pramipexole Dihydrochloride 0.25mg Tablets 1 by mouth at bedtime as needed 90tabs RENEE Godwin, PNP Multivitamin Adult Tablets 1 by mouth every day Unknown Tramadol HCL 50mg Tablets 1 by mouth every day as needed Unknown Gabapentin 300mg Capsules 1 by mouth three times a day Unknown Lidocaine 5% Patches Apply One To Two Patches Topically To Clean Dry Skin. Leave On For 12 Hours Then Remove. Must Wait AT Least 12 Hours Before Applying Patch(E U nknown Acyclovir 5% Ointment apply to cold sore three times a day as needed 30gm RENEE Powell, PNP Krill Oil 1 by mouth every day Unknown Simvastatin 20mg Tablets take 1 tablet by mouth at bedtime 90tabs RENEE Powell, PNP 000 Immunizations Description No Information Available Vital Signs Date Vital Result Comment 12/19/2020 8:02am BP Systolic 118 mmHg BP Diastolic 70 mmHg Heart Rate 64 /min Body Temperature 97.2 F Respiratory Rate 18 /min O2 % BldC Oximetry 98 % Weight 216.00 lb Weight 97.978 kg Height 62 inches 5'2" BMI (Body Mass Index) 39.5 kg/m2 BSA (Body Surface Area) 1.98 m2 08/03/2020 8:18am BP Systolic 150 mmHg BP Diastolic 88 mmHg Heart Rate 60 /min Body Temperature 97.5 F Respiratory Rate 18 /min O2 % BldC Oximetry 97 % Weight 217.38 lb Weight 98.601 kg Height 62 inches 5'2" BMI (Body Mass Index) 39.8 kg/m2 BSA (Body Surface Area) 1.98 m2 Results Test Acquired Date Facility Test Result H/L Range Note Laboratory test finding 12/19/2020 [facility] TSH Highly Sensitive <pending> Hgba1c <pending> CBC W/Automated Diff 08/02/2020 [facility] CBC W/Automated Diff (SEE NOTE) 1, 2 WBC 5.7 10^3/uL 4.2 - 11.0 RBC 4.09 10^6/uL Low 4.20 - 5.40 Hemoglobin 12.9 g/dL 12.0 - 16.0 Hematocrit 38.8 % 37.0 - 47.0 MCV 94.9 fL 81.0 - 101 MCH 31.5 pg 27.0 - 34.0 MCHC 33.2 g/dL 31.0 - 36.0 RDW 15.5 % High 11.5 - 14.5 Platelets 219 10^3/uL 150 - 450 MPV 10.2 fL 7.4 - 10.4 Neut 67.3 % 37.0 - 80.0 Lymph 22.0 % Low 25.0 - 40.0 [place] 7.0 % 3.0 - 8.0 Eos 2.8 % 0.0 - 7.0 Baso 0.5 % 0.0 - 2.5 %Ig 0.4 % High 0.0 - 0.0 %NRBC 0.0 % 0.0 - 0.0 #Neut 3.83 10^3/uL 2.00 - 6.90 #Lymph 1.25 10^3/uL 0.60 - 3.40 #[place] 0.40 10^3/uL 0.00 - 0.90 #Eos 0.16 10^3/uL 0.00 - 0.70 #Baso 0.03 10^3/uL 0.00 - 0.20 #Ig 0.02 10^3/uL 0.00 - 0.10 #NRBC 0.00 10^3/uL 0.00 - 0.00 Manual Diff NOT INDICATED RBC Morph NOT INDICATED Comprehensive Metabolic Panel 08/02/2020 [facility]spital Comprehensive Metabo (SEE NOTE) 3 Sodium 143 mEq/L 134 - 153 Potassium 4.2 mEq/L 3.6 - 5.0 Chloride 110 mEq/L High 98 - 107 Co2 24 mEq/L 22 - 30 Glucose 91 mg/dL 65 - 110 BUN 13 mg/dL 7 - 21 Creatinine 0.9 mg/dL 0.7 - 1.5 BUN/Creat 14 8 - 27 Total Protein 6.2 g/dL Low 6.3 - 8.2 Albumin 3.9 g/dL 3.9 - 5.0 Globulin 2.3 GM/DL Low 2.4 - 3.2 A/G Ratio 1.7 0.8 - 2.0 Calcium 8.9 mg/dL 8.4 - 10.2 Total Bili 0.7 mg/dL 0.2 - 1.3 Alkaline Phos 103 U/L 38 - 126 Sgot/Ast 20 U/L 5 - 40 SGPT/Alt 19 U/L 7 - 56 Anion Gap 9.0 mmol/L 8.0 - 16.0 Age 64 yrs Non-Aa GFR >60 mL/min Afr Amer GFR >60 4 Cve Panel 08/02/2020 [facility] Cve Panel (SEE NOTE) 5 Cholesterol 118 mg/dL Low 131 - 200 Triglycerides 107 mg/dL 35 - 160 HDL 56 mg/dL 29 - 86 LDL 45 mg/dL Low 65 - 175 Risk Factor 2.1 Low 3.2 - 4.4 LDL/HDL 0.80 Low 1.47 - 3.22 6 Laboratory test finding 08/02/2020 [facility] TSH Highly Sensitive 2.26 uIU/mL 0.47 - 5.01 Hgba1c 4.8 % 4.4 - 6.1 7 1 Is patient fasting? N 2 COMPLETE BLOOD COUNT 3 COMPREHENSIVE METABOLIC PANE L 4 Male GFR Interprentation 20-49 yrs >60 mL/min Normal 50-59 yrs >56 mL/min Normal 60-69 yrs >49 mL/min Normal 70-79yrs >42 mL/min Normal 80 and above >35 mL/min Normal Female GFR Interpretation 20-39 yrs >60 mL/min Normal 40-49 yrs >58 mL/min Normal 50-59 yrs >51 mL/min Normal 60-69 yrs >45 mL/min Normal 70-79 yrs >39 mL/min Normal 80 and above >32 mL/min Normal 5 LIPID PANEL 6 CVE RISK CHOL/HDL LDL/HDL MEN: /2 AVERAGE 3.43 1.00 AVERAGE 4.97 3.55 2X AVERAGE 9.55 6.25 3X AVERAGE 23.99 7.99 WOMEN: 1/2 AVERAGE 3.27 1.47 AVERAGE 4.44 3.22 2X AVERAGE 7.05 5.03 3X AVERAGE 11.04 6.14 7 {A1] {HB] Procedures Date Code Description Status 12/19/2020 42514 Electrocardiogram Complete Compl eted Medical Devices Description No Information Available Encounters Type Date Location Provider Dx Diagnosis Office Visit 12/19/2020 8:00a [facility] Da RENEE Colmenares, PNP Z01.818 Encounter for other preproce dural examination N81.6 Rectocele Z01.810 Encounter for preprocedural cardiovascular examination Z01.811 Encounter for preprocedural respiratory examination E11.65 Type 2 diabetes mellitus wit h hyperglycemia I10 Essential (primary) hyperten carlos Z79.899 Other termite control servicer (current) dr ug therapy Assessments Date Code Description Provider 12/19/2020 Z01.818 Encounter for other preprocedura l examination RENEE Powell, PNP 12/19/2020 N81.6 Rectocele YOLIE Powell, PNP 12/19/2020 Z01.810 Encounter for preprocedural card iovascular examination RENEE Powell, PNP 12/19/2020 Z01.811 Encounter for preprocedural resp iratory examination RENEE Powell, PNP 12/19/2020 E11.65 Type 2 diabetes mellitus with hy perglycemia YOLIE Powell, PNP 12/19/2020 I10 Essential (primary) hypertension RENEE Powell, PNP 12/19/2020 Z79.899 Other termite control servicer (current) drug t herapy RENEE Powell, PNP 08/03/2020 Z00.01 Encounter for genera l adult medical examination with abnormal findings RENEE Powell, PNP 08/03/2020 I10 Essential (primary) hypertension RENEE Powell, PNP 08/03/2020 N81.6 Rectocele YOLIE Powell, PNP 08/03/2020 E78.00 Pure hypercholesterolemia, unspe cified RENEE Powell, PNP 08/03/2020 M19.90 Unspecified osteoarthritis, unsp ecified site YOLIE Powell, PNP 08/03/2020 E66.01 Morbid (severe) obesity due to e xcess calories RENEE Powell, PNP 08/03/2020 Z68.39 Body mass index (BMI) 39.0-39.9, adult RENEE Powell, PNP 08/03/2020 M76.60 Achilles tendinitis, unspecified leg RENEE Powell, PNP 08/03/2020 M79.672 Pain in left foot GERARDO Powell, PNP 08/03/2020 Z79.899 Other halfway (current) drug t herapy RENEE Powell, PNP 08/02/2020 E11.65 Type 2 diabetes mellitus with hy perglycemia [facility] 08/02/2020 I10 Essential (primary) hypertension [facility] 08/02/2020 Z79.899 Other termite control servicer (current) drug t herapy [facility] 06/21/2020 E10.49 Type 1 diabetes jeancarlos itus with other diabetic neurological complication Odette Alejandro DPM-pc 06/21/2020 M19.90 Unspecified osteoarthritis, [facility] ecified site Odette Alejandro DPM-pc 06/21/2020 M76.60 Achilles tendinitis, unspecified leg Luca Loya 06/21/2020 M79.672 Pain in left foot Luca Loya Plan of Treatment Future Appointment(s):* 03/07/2021 8:20 am - RENEE Powell PNP at [facility] 12/19/2020 - RENEE Powell, PNP* Z01.818 Encounter for other preprocedural examination* New Xrays:* Chest Xray 2 Views, Ordered: 12/19/20 * Comments:* Patient will be medically optimized and cleared for surgery once her EKG and chest x-ray are unremarkable. Patient verbalizes understanding with the risks and benefits of the procedure and would like to go ahead with surgery. * N81.6 Rectocele* Comments:* Pt will be having surgery for a posterior colporraphy and perineorrhapy for a rectocele at [facility], under General anesthesia by Dr Eric, on 01/05/21. * Z01.810 Encounter for preprocedural cardiovascular examination* Comments:* To have her routine preop EKG and chest x-ray done to have clearance for surgery .Further plans to follow the diagnostic results.We will continue to monitor. * Z01.811 Encounter for preprocedural respiratory examination* New Xrays:* Chest Xray 2 Views, Ordered: 12/19/20 * Comments:* To have her routine preop EKG and chest x-ray done to have clearance for surgery.Further plans to follow the diagnostic results.We will continue to monitor. * E11.65 Type 2 diabetes mellitus with hyperglycemia * I10 Essential (primary) hypertension * Z79.899 Other halfway (current) drug therapy Functional Status Description No Information Available Mental Status Description No Information Available Referrals Description No Information Available
--- OUTSIDE RECORDS SUMMARY | 2020-12-29 06:13 | CCD ---
Author Author [facility] Organization [facility] Address Unknown Phone Unavailable Care Team Providers [facility] [place] Department Manager Name Role Phone Parmeter, Ana PRODUCE DEPARTMENT MANAGER Unavailable Unavailable Parmeter, Ana PRODUCE DEPARTMENT MANAGER Unavailable Unavailable Parmeter, Ana PRODUCE DEPARTMENT MANAGER Unavailable Unavailable Parmeter, Ana PRODUCE DEPARTMENT MANAGER Unavailable Unavailable Parmeter, Ana PRODUCE DEPARTMENT MANAGER Unavailable Unavailable Parmeter, Ana PRODUCE DEPARTMENT MANAGER Unavailable Unavailable Parmeter, Ana PRODUCE DEPARTMENT MANAGER Unavailable Unavailable Parmeter, Ana PRODUCE DEPARTMENT MANAGER Unavailable Unavailable Parmeter, Ana PRODUCE DEPARTMENT MANAGER Unavailable Unavailable Parmeter, Ana PRODUCE DEPARTMENT MANAGER Unavailable Unavailable Parmeter, Ana PRODUCE DEPARTMENT MANAGER Unavailable Unavailable Parmeter, Ana PRODUCE DEPARTMENT MANAGER Unavailable Unavailable Parmeter, Ana PRODUCE DEPARTMENT MANAGER Unavailable Unavailable Parmeter, Ana PRODUCE DEPARTMENT MANAGER Unavailable Unavailable Parmeter, Ana PRODUCE DEPARTMENT MANAGER Unavailable Unavailable Parmeter, Ana PRODUCE DEPARTMENT MANAGER Unavailable Unavailable Parmeter, Ana PRODUCE DEPARTMENT MANAGER Unavailable Unavailable Parmeter, Ana PRODUCE DEPARTMENT MANAGER Unavailable Unavailable Parmeter, Ana PRODUCE DEPARTMENT MANAGER Unavailable Unavailable Parmeter, Ana PRODUCE DEPARTMENT MANAGER Unavailable Unavailable Parmeter, Ana PRODUCE DEPARTMENT MANAGER Unavailable Unavailable Parmeter, Ana PRODUCE DEPARTMENT MANAGER Unavailable Unavailable Parmeter, Ana PRODUCE DEPARTMENT MANAGER Unavailable Unavailable Parmeter, Ana PRODUCE DEPARTMENT MANAGER Unavailable Unavailable Parmeter, Ana PRODUCE DEPARTMENT MANAGER Unavailable Unavailable Parmeter, Ana PRODUCE DEPARTMENT MANAGER Unavailable Unavailable Parmeter, Ana PRODUCE DEPARTMENT MANAGER Unavailable Unavailable Parmeter, Ana PRODUCE DEPARTMENT MANAGER Unavailable Unavailable Parmeter, Ana PRODUCE DEPARTMENT MANAGER Unavailable Unavailable Parmeter, Ana PRODUCE DEPARTMENT MANAGER Unavailable Unavailable Parmeter, Ana PRODUCE DEPARTMENT MANAGER Unavailable Unavailable Parmeter, Ana PRODUCE DEPARTMENT MANAGER Unavailable Unavailable Parmeter, Ana PRODUCE DEPARTMENT MANAGER Unavailable Unavailable Parmeter, Ana PRODUCE DEPARTMENT MANAGER Unavailable Unavailable Parmeter, Ana PRODUCE DEPARTMENT MANAGER Unavailable Unavailable Parmeter, Ana PRODUCE DEPARTMENT MANAGER Unavailable Unavailable Parmeter, Ana PRODUCE DEPARTMENT MANAGER Unavailable Unavailable Parmeter, Ana PRODUCE DEPARTMENT MANAGER Unavailable Unavailable Parmeter, Ana PRODUCE DEPARTMENT MANAGER Unavailable Unavailable Parmeter, Ana PRODUCE DEPARTMENT MANAGER Unavailable Unavailable Parmeter, Ana PRODUCE DEPARTMENT MANAGER Unavailable Unavailable Parmeter, Ana PRODUCE DEPARTMENT MANAGER Unavailable Unavailable Parmeter, Ana PRODUCE DEPARTMENT MANAGER Unavailable Unavailable Parmeter, Ana PRODUCE DEPARTMENT MANAGER Unavailable Unavailable Parmeter, Ana PRODUCE DEPARTMENT MANAGER Unavailable Unavailable Parmeter, Ana PRODUCE DEPARTMENT MANAGER Unavailable Unavailable Parmeter, Ana PRODUCE DEPARTMENT MANAGER Unavailable Unavailable HANIFIN, M ALEXANDRIA PA Unavailable Unavailable HANIFIN, M ALEXANDRIA PA Unavailable Unavailable HANIFIN, M ALEXANDRIA PA Unavailable Unavailable HANIFIN, M ALEXANDRIA PA Unavailable Unavailable HANIFIN, M ALEXANDRIA PA Unavailable Unavailable HANIFIN, M ALEXANDRIA PA Unavailable Unavailable HANIFIN, M ALEXANDRIA PA Unavailable Unavailable HANIFIN, M ALEXANDRIA PA Unavailable Unavailable HANIFIN, M ALEXANDRIA PA Unavailable Unavailable HANIFIN, M ALEXANDRIA PA Unavailable Unavailable HANIFIN, M ALEXANDRIA PA Unavailable Unavailable HANIFIN, M ALEXANDRIA PA Unavailable Unavailable HANIFIN, M ALEXANDRIA PA Unavailable Unavailable HANIFIN, M ALEXANDRIA PA Unavailable Unavailable HANIFIN, M ALEXANDRIA PA Unavailable Unavailable HANIFIN, M ALEXANDRIA PA Unavailable Unavailable HANIFIN, M ALEXANDRIA PA Unavailable Unavailable HANIFIN, M ALEXANDRIA PA Unavailable Unavailable HANIFIN, M ALEXANDRIA PA Unavailable Unavailable HANIFIN, M ALEXANDRIA PA Unavailable Unavailable HANIFIN, M ALEXANDRIA PA Unavailable Unavailable HANIFIN, M ALEXANDRIA PA Unavailable Unavailable HANIFIN, M ALEXANDRIA PA Unavailable Unavailable HANIFIN, M ALEXANDRIA PA Unavailable Unavailable HANIFIN, M ALEXANDRIA PA Unavailable Unavailable HANIFIN, M ALEXANDRIA PA Unavailable Unavailable HANIFIN, M ALEXANDRIA PA Unavailable Unavailable HANIFIN, M ALEXANDRIA PA Unavailable Unavailable HANIFIN, M ALEXANDRIA PA Unavailable Unavailable HANIFIN, M ALEXANDRIA PA Unavailable Unavailable HANIFIN, M ALEXANDRIA PA Unavailable Unavailable HANIFIN, M ALEXANDRIA PA Unavailable Unavailable HANIFIN, M ALEXADNRIA PA Unavailable Unavailable HANIFIN, M ALEAXNDRIA PA Unavailable Unavailable HANIFIN, M ALEXANDRIA PA Unavailable Unavailable HANIFIN, M ALEXANDRIA PA Unavailable Unavailable HANIFIN, M ALEXANDRIA PA Unavailable Unavailable HANIFIN, M ALEXANDRIA PA Unavailable Unavailable HANIFIN, M ALEXANDRIA PA Unavailable Unavailable HANIFIN, M ALEXANDRIA PA Unavailable Unavailable HANIFIN, M ALEXANDRIA PA Unavailable Unavailable HANIFIN, M ALEXANDRIA PA Unavailable Unavailable HANIFIN, M ALEXANDRIA PA Unavailable Unavailable HANIFIN, M ALEXANDRIA PA Unavailable Unavailable HANIFIN, M ALEXANDRIA PA Unavailable Unavailable HANIFIN, M ALEXANDRIA PA Unavailable Unavailable HANIFIN, M ALEXANDRIA PA Unavailable Unavailable HANIFIN, M ALEXANDRIA PA Unavailable Unavailable HANIFIN, M ALEXANDRIA PA Unavailable Unavailable HANIFIN, M ALEXANDRIA PA Unavailable Unavailable HANIFIN, M ALEXANDRIA PA Unavailable Unavailable HANIFIN, M ALEXANDRIA PA Unavailable Unavailable Profetto, A Marcos ANNEALER HELPER Unavailable Unavailable Profetto, A Marcos ANNEALER HELPER Unavailable Unavailable Profetto, A Marcos ANNEALER HELPER Unavailable Unavailable Profetto, A Marcos ANNEALER HELPER Unavailable Unavailable Profetto, A Marcos ANNEALER HELPER Unavailable Unavailable Profetto, A Marcos ANNEALER HELPER Unavailable Unavailable Profetto, A Marcos ANNEALER HELPER Unavailable Unavailable Profetto, A Marcos ANNEALER HELPER Unavailable Unavailable Profetto, A Marcos ANNEALER HELPER Unavailable Unavailable Profetto, A Marcos ANNEALER HELPER Unavailable Unavailable Profetto, A Marcos ANNEALER HELPER Unavailable Unavailable Profetto, A Marcos ANNEALER HELPER Unavailable Unavailable Profetto, A Marcos ANNEALER HELPER Unavailable Unavailable Profetto, A Marcos ANNEALER HELPER Unavailable Unavailable Profetto, A Marcos ANNEALER HELPER Unavailable Unavailable Profetto, A Marcos ANNEALER HELPER Unavailable Unavailable Profetto, A Marcos ANNEALER HELPER Unavailable Unavailable Profetto, A Marcos ANNEALER HELPER Unavailable Unavailable Profetto, A Marcos ANNEALER HELPER Unavailable Unavailable Profetto, A Marcos ANNEALER HELPER Unavailable Unavailable Profetto, A Marcos ANNEALER HELPER Unavailable Unavailable Profetto, A Marcos ANNEALER HELPER Unavailable Unavailable Profetto, A Marcos ANNEALER HELPER Unavailable Unavailable Profetto, A Marcos ANNEALER HELPER Unavailable Unavailable Profetto, A Marcos ANNEALER HELPER Unavailable Unavailable Profetto, A Marcos ANNEALER HELPER Unavailable Unavailable Profetto, A Marcos ANNEALER HELPER Unavailable Unavailable Profetto, A Marcos ANNEALER HELPER Unavailable Unavailable Profetto, A Marcos ANNEALER HELPER Unavailable Unavailable MUSA, J MICHELLE DPM PC Unavailable Unavailable MUSA, J MICHELLE DPM PC Unavailable Unavailable MUSA, J MICHELLE DPM PC Unavailable Unavailable MUSA, J MICHELLE DPM PC Unavailable Unavailable MUSA, J MICHELLE DPM PC Unavailable Unavailable MUSA, J MICHELLE DPM PC Unavailable Unavailable MUSA, J MICHELLE DPM PC Unavailable Unavailable MUSA, J MICHELLE DPM PC Unavailable Unavailable MUSA, J MICHELLE DPM PC Unavailable Unavailable MUSA, J MICHELLE DPM PC Unavailable Unavailable MUSA, J MICHELLE DPM PC Unavailable Unavailable MUSA, J MICHELLE DPM PC Unavailable Unavailable MUSA, J MICHELLE DPM PC Unavailable Unavailable MUSA, J MICHELLE DPM PC Unavailable Unavailable MUSA, J MICHELLE DPM PC Unavailable Unavailable MUSA, J MICHELLE DPM PC Unavailable Unavailable MUSA, J MICHELLE DPM PC Unavailable Unavailable MUSA, J MICHELLE DPM PC Unavailable Unavailable MUSA, J MICHELLE [facility] Unavailable Unavailable MUSA, J MICHELLE [facility] Unavailable Unavailable MUSA, J MICHELLE [facility] Unavailable Unavailable MUSA, J MICHELLE [facility] Unavailable Unavailable MUSA, J MICHELLE [facility] Unavailable Unavailable MUSA, J MICHELLE [facility] Unavailable Unavailable MUSA, J MICHELLE [facility] Unavailable Unavailable MUSA, J MICHELLE [facility] Unavailable Unavailable César, Mckenzie Kaity ANP-BC Unavailable Unavailable César, Mckenzie Kaity ANP-BC Unavailable Unavailable César, Mckenzie Kaity ANP-BC Unavailable Unavailable César, Mckenzie Kaity ANP-BC Unavailable Unavailable César, Mckenzie Kaity ANP-BC Unavailable Unavailable César, Mckenzie Kaity ANP-BC Unavailable Unavailable César, Mckenzie Kaity ANP-BC Unavailable Unavailable César, Mckenzie Kaity ANP-BC Unavailable Unavailable César, Mckenzie Kaity ANP-BC Unavailable Unavailable César, Mckenzie Kaity ANP-BC Unavailable Unavailable César, Mckenzie Kaity ANP-BC Unavailable Unavailable César, Mckenzie Kaity ANP-BC Unavailable Unavailable César, Mckenzie Kaity ANP-BC Unavailable Unavailable César, Mckenzie Kaity ANP-BC Unavailable Unavailable César, Mckenzie Kaity ANP-BC Unavailable Unavailable César, Mckenzie Kaity ANP-BC Unavailable Unavailable César, Mckenzie Kaity ANP-BC Unavailable Unavailable César, Mckenzie Kaity ANP-BC Unavailable Unavailable César, Mckenzie Kaity ANP-BC Unavailable Unavailable César, Mckenzie Kaity ANP-BC Unavailable Unavailable César, Mckenzie Kaity ANP-BC Unavailable Unavailable César, Mckenzie Kaity ANP-BC Unavailable Unavailable César, Mckenzie Kaity ANP-BC Unavailable Unavailable César, Mckenzie Kaity ANP-BC Unavailable Unavailable César, Mckenzie Kaity ANP-BC Unavailable Unavailable César, Mckenzie Kaity ANP-BC Unavailable Unavailable César, Mckenzie Kaity ANP-BC Unavailable Unavailable César, Mckenzie Kaity ANP-BC Unavailable Unavailable César, Mckenzie Kaity ANP-BC Unavailable Unavailable César, Mckenzie Kaity ANP-BC Unavailable Unavailable César, Mckenzie Kaity ANP-BC Unavailable Unavailable César, Mckenzie Kaity ANP-BC Unavailable Unavailable César, Mckenzie Kaity ANP-BC Unavailable Unavailable César, Mckenzie Kaity ANP-BC Unavailable Unavailable César, Mckenzie Kaity ANP-BC Unavailable Unavailable César, Mckenzie Kaity ANP-BC Unavailable Unavailable César, Mckenzie Kaity ANP-BC Unavailable Unavailable César, Mckenzie Kaity ANP-BC Unavailable Unavailable César, Mckenzie Kaity ANP-BC Unavailable Unavailable César, Mckenzie Kaity ANP-BC Unavailable Unavailable César, Mckenzie Kaity ANP-BC Unavailable Unavailable César, Mckenzie Kaity ANP-BC Unavailable Unavailable César, Mckenzie Kaity ANP-BC Unavailable Unavailable César, Mckenzie Kaity ANP-BC Unavailable Unavailable César, Mckenzie Kaity ANP-BC Unavailable Unavailable César, Mckenzie Kaity ANP-BC Unavailable Unavailable César, Mckenzie Kaity ANP-BC Unavailable Unavailable César, Mckenzie Kaity ANP-BC Unavailable Unavailable César, Mckenzie Kaity ANP-BC Unavailable Unavailable César, Mckenzie Kaity ANP-BC Unavailable Unavailable César, Mckenzie Kaity ANP-BC Unavailable Unavailable César, Mckenzie Kaity ANP-BC Unavailable Unavailable César, Mckenzie Kaity ANP-BC Unavailable Unavailable César, Mckenzie Kaity ANP-BC Unavailable Unavailable César, Mckenzie Kaity ANP-BC Unavailable Unavailable César, Mckenzie Kaity ANP-BC Unavailable Unavailable César, Mckenzie Kaity ANP-BC Unavailable Unavailable César, Mckenzie Kaity ANP-BC Unavailable Unavailable César, Mckenzie Kaity ANP-BC Unavailable Unavailable César, Mckenzie Kaity ANP-BC Unavailable Unavailable César, Mckenzie Kaity ANP-BC Unavailable Unavailable César, Mckenzie Kaity ANP-BC Unavailable Unavailable César, Mckenzie Kaity ANP-BC Unavailable Unavailable César, Mckenzie Kaity ANP-BC Unavailable Unavailable Carey, Len Kilgore MD Unavailable Unavailable Carey, Len Kilgore MD Unavailable Unavailable Carey, Len Kilgore MD Unavailable Unavailable Carey, Len Kilgore MD Unavailable Unavailable Carey, Len Kilgore MD Unavailable Unavailable Carey, Len Kilgore MD Unavailable Unavailable Caery, Len Kilgore MD Unavailable Unavailable Carey, Len Kilgore MD Unavailable Unavailable Carey, Len Kilgore MD Unavailable Unavailable Carey, Len Kilgore MD Unavailable Unavailable Carey, Len Kilgore MD Unavailable Unavailable Carey, Len Kilgore MD Unavailable Unavailable Carey, Len Kilgore MD Unavailable Unavailable Carey, Len Kilgore MD Unavailable Unavailable Carey, Len Kilgore MD Unavailable Unavailable Carey, Len Kilgore MD Unavailable Unavailable Carey, Len Kilgore MD Unavailable Unavailable Carey, Len Kilgore MD Unavailable Unavailable Carey, Len Kilgore MD Unavailable Unavailable Carey, Len Kilgore MD Unavailable Unavailable Carey, Len Kilgore MD Unavailable Unavailable Carey, Len Kilgore MD Unavailable Unavailable Carey, Len Kilgore MD Unavailable Unavailable Carey, Len Kilgore MD Unavailable Unavailable Carey, Len Kilgore MD Unavailable Unavailable Carey, Len Kilgore MD Unavailable Unavailable Carey, Len Kilgore MD Unavailable Unavailable Carey, Len Kilgore MD Unavailable Unavailable Carey, Len Kilgore MD Unavailable Unavailable Carey, Len Kilgore MD Unavailable Unavailable Carey, Len Kilgore MD Unavailable Unavailable Carey, Len Kilgore MD Unavailable Unavailable Carey, Len Kilgore MD Unavailable Unavailable Carey, Len Kilgore MD Unavailable Unavailable Carey, Len Kilgore MD Unavailable Unavailable Carey, Len Kilgore MD Unavailable Unavailable Carey, Len Kilgore MD Unavailable Unavailable Carey, Len Kilgore MD Unavailable Unavailable Esperanza ARRIAGA MD Unavailable Unavailable Esperanza ARRIAGA MD Unavailable Unavailable Esperanza ARRIAGA MD Unavailable Unavailable Esperanza ARRIAGA MD Unavailable Unavailable Esperanza ARRIAGA MD Unavailable Unavailable Esperanza ARRIAGA MD Unavailable Unavailable Esperanza ARRIAGA MD Unavailable Unavailable Esperanza ARRIAGA MD Unavailable Unavailable Esperanza ARRIAGA MD Unavailable Unavailable Esperanza ARRIAGA MD Unavailable Unavailable Esperanza ARRIAGA MD Unavailable Unavailable Esperanza ARRIAGA MD Unavailable Unavailable Esperanza ARRIAGA MD Unavailable Unavailable Esperanza ARRIAGA MD Unavailable Unavailable Esperanza ARRIAGA MD Unavailable Unavailable Esperanza ARRIAGA MD Unavailable Unavailable Esperanza ARRIAGA MD Unavailable Unavailable Esperanza ARRIAGA MD Unavailable Unavailable Esperanza ARRIAGA MD Unavailable Unavailable Esperanza ARRIAGA MD Unavailable Unavailable Esperanza ARRIAGA MD Unavailable Unavailable Esperanza ARRIAGA MD Unavailable Unavailable Esperanza ARRIAGA MD Unavailable Unavailable Esperanza ARRIAGA MD Unavailable Unavailable Esperanza ARRIAGA MD Unavailable Unavailable Esperanza ARRIAGA MD Unavailable Unavailable Esperanza ARRIAGA MD Unavailable Unavailable Esperanza ARRIAGA MD Unavailable Unavailable Esperanza ARRIAGA MD Unavailable Unavailable Esperanza ARRIAGA MD Unavailable Unavailable Esperanza ARRIAGA MD Unavailable Unavailable Esperanza ARRIAGA MD Unavailable Unavailable Esperanza ARRIAGA MD Unavailable Unavailable Esperanza ARRIAGA MD Unavailable Unavailable Esperanza ARRIAGA MD Unavailable Unavailable Esperanza ARRIAGA MD Unavailable Unavailable Esperanza ARRIAGA MD Unavailable Unavailable Esperanza ARRIAGA MD Unavailable Unavailable Esperanza ARRIAGA MD Unavailable Unavailable Esperanza ARRIAGA MD Unavailable Unavailable Esperanza ARRIAGA MD Unavailable Unavailable Esperanza ARRIAGA MD Unavailable Unavailable Esperanza ARRIAGA MD Unavailable Unavailable Esperanza ARRIAGA MD Unavailable Unavailable Esperanza ARRIAGA MD Unavailable Unavailable Esperanza ARRIAGA MD Unavailable Unavailable Esperanza ARRIAGA MD Unavailable Unavailable Esperanza ARRIAGA MD Unavailable Unavailable Esperanza ARRIAGA MD Unavailable Unavailable Esperanza ARRIAGA MD Unavailable Unavailable Esperanza ARRIAGA MD Unavailable Unavailable Esperanza ARRIAGA MD Unavailable Unavailable Esperanza ARRIAGA MD Unavailable Unavailable Esperanza ARRIAGA MD Unavailable Unavailable Esperanza ARRIAGA MD Unavailable Unavailable Esperanza ARRIAGA MD Unavailable Unavailable Esperanza ARRIAGA MD Unavailable Unavailable Esperanza ARRIAGA MD Unavailable Unavailable Esperanza ARRIAGA MD Unavailable Unavailable Esperanza ARRIAGA MD Unavailable Unavailable Esperanza ARRIAGA MD Unavailable Unavailable Esperanza ARRIAGA MD Unavailable Unavailable Esperanza ARRIAGA MD Unavailable Unavailable Esperanza ARRIAGA MD Unavailable Unavailable Esperanza ARRIAGA MD Unavailable Unavailable Robbie Hamlin MD Unavailable Unavailable Robbie Hamlin MD Unavailable Unavailable Robbie Hamlin MD Unavailable Unavailable Robbie Hamlin MD Unavailable Unavailable Robbie Hmalin MD Unavailable Unavailable Bogosistella, Robbie Blair MD Unavailable Unavailable Bogosian, Robbie Blair MD Unavailable Unavailable Bogosian, Robbie Blair MD Unavailable Unavailable Bogosian, Robbie Blair MD Unavailable Unavailable Bogosian, Robbie Blair MD Unavailable Unavailable Bogosian, Robbie Blair MD Unavailable Unavailable Bogosistella, Robbie Blair MD Unavailable Unavailable Bogosistella, Robbie Blair MD Unavailable Unavailable Bogosian, Robbie Blair MD Unavailable Unavailable Bogosian, Robbie Blair MD Unavailable Unavailable Bogosian, Robbie Blair MD Unavailable Unavailable Bogosian, Robbie Blair MD Unavailable Unavailable Bogosian, Robbie Blair MD Unavailable Unavailable Bogosian, Robbie Blair MD Unavailable Unavailable Bogosian, Robbie Blair MD Unavailable Unavailable Bogosian, Robbie Blair MD Unavailable Unavailable Bogosian, Robbie Blair MD Unavailable Unavailable Bogosian, Robbie Blair MD Unavailable Unavailable Bogosian, Robbie Blair MD Unavailable Unavailable Bogosian, Robbie Blair MD Unavailable Unavailable Bogosian, Robbie Blair MD Unavailable Unavailable Bogosian, Robbie Blair MD Unavailable Unavailable Bogosian, Robbie Blair MD Unavailable Unavailable Bogosian, Robbie Blair MD Unavailable Unavailable Bogosian, Robbie Blair MD Unavailable Unavailable Bogosian, Robbie Blair MD Unavailable Unavailable Bogosian, Robbie Blair MD Unavailable Unavailable Bogosian, Robbie Blair MD Unavailable Unavailable Bogosian, Robbie Blair MD Unavailable Unavailable Bogosian, Robbie Blair MD Unavailable Unavailable Bogosian, Robbie Blair MD Unavailable Unavailable Bogosistella, Robbie Blair MD Unavailable Unavailable Bogosistella, Robbie Blair MD Unavailable Unavailable Bogosian, Robbie Blair MD Unavailable Unavailable Bogosian, Robbie Blair MD Unavailable Unavailable Bogosian, Robbie Blair MD Unavailable Unavailable BogosiRobbie douglas MD Unavailable Unavailable BogosiRobbie douglas MD Unavailable Unavailable Bogosistella, Robbie Blair MD Unavailable Unavailable Bogosistella, Robbie Blair MD Unavailable Unavailable Bogosian, Robbie Blair MD Unavailable Unavailable Bogosian, Robbie Blair MD Unavailable Unavailable Bogosistella, Robbie Blair MD Unavailable Unavailable Bogosistella, Robbie Blair MD Unavailable Unavailable Bogosistella, Robbie Blair MD Unavailable Unavailable Bogpurvi, Robbie Blair MD Unavailable Unavailable Bogosistella, Robbie Blair MD Unavailable Unavailable Bogosian, Robbie Blair MD Unavailable Unavailable Bogosian, Robbie Blair MD Unavailable Unavailable Bogosian, Robbie Blair MD Unavailable Unavailable BogosiRobbie douglas MD Unavailable Unavailable Bogosian, Robbie Blair MD Unavailable Unavailable Bogosian, Robbie Blair MD Unavailable Unavailable Bogosian, Robbie Blair MD Unavailable Unavailable Bogosian, Robbie Blair MD Unavailable Unavailable Bogosian, Robbie Blair MD Unavailable Unavailable Bogosian, Robbie Blair MD Unavailable Unavailable Bogosian, Robbie Blair MD Unavailable Unavailable Bogosian, Robbie Blair MD Unavailable Unavailable Bogosian, Robbie Blair MD Unavailable Unavailable Bogosian, Robbie Blair MD Unavailable Unavailable Bogosian, Robbie Blair MD Unavailable Unavailable Bogosian, Robbie Blair MD Unavailable Unavailable Bogosian, Robbie Blair MD Unavailable Unavailable Bogosian, Robbie Blair MD Unavailable Unavailable Bogosian, Robbie Blair MD Unavailable Unavailable Bogosian, Robbie Blair MD Unavailable Unavailable Bogosian, Robbie Blair MD Unavailable Unavailable Bogosian, Robbie Blair MD Unavailable Unavailable Bogosian, Robbie Blair MD Unavailable Unavailable Bogosian, Robbie Blair MD Unavailable Unavailable Bogosian, Robbie Blair MD Unavailable Unavailable MosesEnrike MD Unavailable Unavailable MosesEnrike MD Unavailable Unavailable MosesEnrike MD Unavailable Unavailable MosesEnrike MD Unavailable Unavailable MosesEnrike MD Unavailable Unavailable MosesEnrike MD Unavailable Unavailable MosesEnrike MD Unavailable Unavailable MosesEnrike MD Unavailable Unavailable MosesEnrike MD Unavailable Unavailable MosesEnrike MD Unavailable Unavailable MosesEnrike MD Unavailable Unavailable MosesEnrike MD Unavailable Unavailable MosesEnrike MD Unavailable Unavailable MosesEnrike MD Unavailable Unavailable MosesEnrike MD Unavailable Unavailable MosesEnrike MD Unavailable Unavailable MosesEnrike MD Unavailable Unavailable MosesEnrike MD Unavailable Unavailable MosesEnrike MD Unavailable Unavailable MosesEnrike MD Unavailable Unavailable MosesEnrike MD Unavailable Unavailable MosesEnrike MD Unavailable Unavailable MosesEnrike MD Unavailable Unavailable MosesEnrike MD Unavailable Unavailable MosesEnrike MD Unavailable Unavailable MosesEnrike MD Unavailable Unavailable MosesEnrike MD Unavailable Unavailable MosesEnrike MD Unavailable Unavailable MosesEnrike MD Unavailable Unavailable MosesEnrike MD Unavailable Unavailable MosesEnrike MD Unavailable Unavailable MosesEnrike MD Unavailable Unavailable MosesEnrike MD Unavailable Unavailable MosesEnrike MD Unavailable Unavailable MosesEnrike MD Unavailable Unavailable MosesEnrike MD Unavailable Unavailable MosesEnrike MD Unavailable Unavailable MosesEnrike MD Unavailable Unavailable Moses, Enrike P MD Unavailable Unavailable Moses, Enrike P MD Unavailable Unavailable Moses, Enrike P MD Unavailable Unavailable Moses, Enrike P MD Unavailable Unavailable Moses, Enrike P MD Unavailable Unavailable Moses, Enrike P MD Unavailable Unavailable Moses, Enrike P MD Unavailable Unavailable Moses, Enrike P MD Unavailable Unavailable Moses, Enrike P MD Unavailable Unavailable Moses, Enrike P MD Unavailable Unavailable Moses, Enrike P MD Unavailable Unavailable Moses, Enrike P MD Unavailable Unavailable Moses, Enrike P MD Unavailable Unavailable Moses, Enrike P MD Unavailable Unavailable Moses, Enrike P MD Unavailable Unavailable Moses, Enrike P MD Unavailable Unavailable Moses, Enrike P MD Unavailable Unavailable Moses, Enrike P MD Unavailable Unavailable Moses, Enrike P MD Unavailable Unavailable Moses, Enrike P MD Unavailable Unavailable Moses, Enrike P MD Unavailable Unavailable Moses, Enrike P MD Unavailable Unavailable Moses, Enrike P MD Unavailable Unavailable Moses, Enrike P MD Unavailable Unavailable Moses, Enrike P MD Unavailable Unavailable Moses, Enrike P MD Unavailable Unavailable Moses, Enrike P MD Unavailable Unavailable Moses, Enrike P MD Unavailable Unavailable Moses, Enrike P MD Unavailable Unavailable Moses, Enrike P MD Unavailable Unavailable Moses, Enrike P MD Unavailable Unavailable César, Mckenzie Kaity ANP-BC Unavailable Unavailable César, Mckenzie Kaity ANP-BC Unavailable Unavailable César, Mckenzie Kaity ANP-BC Unavailable Unavailable César, Mckenzie Kaity ANP-BC Unavailable Unavailable César, Mckenzie Kaity ANP-BC Unavailable Unavailable César, Mckenzie Kaity ANP-BC Unavailable Unavailable César, Mckenzie Kaity ANP-BC Unavailable Unavailable César, Mckenzie Kaity ANP-BC Unavailable Unavailable César, Mckenzie Kaity ANP-BC Unavailable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 [id number] STATE INSURANCE FUND [id number] SP [id number] STATE INSURANCE FUND UNAVAILABLE SP UNAVAILABLE STATE INSURANCE FUND [id number] SP [id number] WORKER'S COMP [id number] [place] [id number] WORKER'S COMP [id number] Emp [id number] STATE INSURANCE FUND O [id number] S [id number] [facility] Medigap Part B Self State Ins Fund () Workers Compensation Self State Ins Fund () Workers Compensation Self State Ins Fund () Workers Compensation Self ONE CALL CARE MANAGEMENT O UNAVAILABLE S UNAVAILABLE STATE INSURANCE FUND O [id number] S [id number] WORKER'S COMP [id number] Emp [id number] State Ins Fund () Workers Compensation Self State Ins Fund () Workers Compensation Self State Ins Fund () Workers Compensation Self State Ins Fund () Workers Compensation Self State Ins Fund () Workers Compensation Self State Ins Fund () Workers Compensation Self STATE INSURANCE FUND [id number] SP [id number] SP [id number] OTHER WORKERS COMPENSATION [id number] SP [id number] STATE INSURANCE FUND [id number]/NOT TODAY SP [id number]/NOT TODAY [facility] [id number]/NOT TODAY SP [id number]/NOT TODAY STATE INSURANCE FUND P [id number] S [id number] Problems, Conditions, and Diagnoses Code Display Name Description Problem Type Effective Dates Data Source(s) 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 Problem 06/06/2020 12:00:00 AM EDT [facility] ([facility]) Achilles tendinitis, unspecified leg Achilles te ndinitis, unspecified leg Problem 06/06/2020 12:00:00 AM EDT [facility] ([facility]) N81.5 [id number] Vaginal enterocele Problem 02/11/2020 12:00: 00 AM EDT eCW1 ([facility]) N81.5 [id number] Vaginal enterocele Problem 02/11/2020 12:00: 00 AM EDT eCW1 ([facility]) [id number] Other half-way (current) drug therapy O ther half-way (current) drug therapy Diagnosis 08/03/2020 08:09:00 AM [facility] [id number] Pain in left foot Pain in left foot Diagnosis 08/03/2020 08:09:00 AM [facility] M7662 Achilles tendinitis, left leg Achilles tendinitis, lef t leg Diagnosis 08/03/2020 08:09:00 AM [facility] Z6839 Body mass index (BMI) 39.0-39.9, adult B elisa mass index (BMI) 39.0-39.9, adult Diagnosis 08/03/2020 08:09:00 AM [facility] E6601 Morbid (severe) obesity due to excess ca lories Morbid (severe) obesity due to excess calories Diagnosis 08/03/2020 08:09:00 AM [facility] M1990 Unspecified osteoarthritis, unspecified site Unspecified osteoarthritis, unspecified site Diagnosis 08/03/2020 08:09:00 AM [facility] E7800 Pure hypercholesterolemia, unspecified P ure hypercholesterolemia, unspecified Diagnosis 08/03/2020 08:09:00 AM [facility] N816 Rectocele Rectocele Diagnosis 08/03/2020 08:09:00 AM ED [facility] I10 Essential (primary) hypertension Essential (primary) h ypertension Diagnosis 08/03/2020 08:09:00 AM [facility] Z0001 Encounter for general adult medical exam ination with abnormal findings Encounter for general adult medical examination with abnormal findings Diagnosis 08/03/2020 08:09:00 AM [facility] E1165 Type 2 diabetes mellitus with hyperglyce tenisha Type 2 diabetes mellitus with hyperglycemia Diagnosis 08/02/2020 09:04:00 AM [facility] E1149 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 Type 2 diabetes mellitus with other diabetic neurological complication Diagnosis 06/21/2020 08:00:00 AM [facility] M7660 Achilles tendinitis, unspecified leg Achilles te ndinitis, unspecified leg Diagnosis 06/21/2020 08:00:00 AM [facility] E1049 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 Diagnosis 06/13/2020 08:32:00 AM EDT [facility] M5412 Radiculopathy, cervical region Radiculopathy, cervical region Diagnosis 06/02/2020 07:25:00 AM EDT [facility] M7541 Impingement syndrome of right shoulder I mpingement syndrome of right shoulder Diagnosis 06/02/2020 07:25:00 AM EDT [facility] D649 Anemia, unspecified Anemia, unspecified Diagnosis 0 05/01/2020 09:33:00 AM EDT [facility] Z9884 Bariatric surgery status Bariatric surgery status Diag nosis 05/01/2020 09:33:00 AM EDT [facility] M96354 Pain in left hand Pain in left hand Diagnosis 03/27/2020 07:59:00 AM EDT [facility] D36314 Pain in right hand Pain in right hand Diagnosis 02/2020 07:59:00 AM EDT [facility] N66592 Cellulitis of right upper limb Cellulitis of right upp er limb Diagnosis 03/07/2020 08:02:00 AM EDT [facility] N644 Mastodynia Mastodynia Diagnosis 12/28/2019 07:55:00 AM [facility] P89214 Muscle spasm of back Muscle spasm of back Diagnosis 12/28/2019 07:55:00 AM EST [facility] R609 Edema, unspecified Edema, unspecified Diagnosis 0 07:55:00 AM [facility] K219 Gastro-esophageal reflux disease without esophagitis Gastro-esophageal reflux disease without esophagitis Diagnosis 12/28/2019 07:55:00 AM [facility] Surgeries/Procedures Procedure Description Date Indications Data Source(s) Electrocardiogram Complete 12/19/2020 12:00:00 AM EST [facility] ([facility]) Strapping Ankle/foot 06/13/2020 12:00:00 AM EDT [facility] ([facility]) Strapping Ankle/foot 06/06/2020 12:00:00 AM EDT [facility] ([facility]) Brief Emotional/Behav Assessment W/ Scoring Doc Per Standard Inst 05/01/2020 12:00:00 AM EDT [facility] ([facility]) Office Visit, Est Pt., Level 2 FC 01/18/2020 12:00:00 AM EST eCW1 ([facility]) Office Visit, Est Pt., Level 3 PC 01/18/2020 12:00:00 AM EST eCW1 ([facility]) Results ID Date Data Source [id number] 12/24/2020 08:20:00 AM EST [facility] Name Value Range Interpretation Code Description Data Tiana rce(s) Supporting Document(s) SARS coronavirus 2 RNA Not Detected [facility] [place] This lab was ordered by [facility] and reported by [facility]. ID Date Data Source [id number] 12/19/2020 12:00:00 AM EST [facility] Np Patient Name: KRISTIN [id number] Date of : 1955[place] [address] Date of Exam: 1P#: Fax: [id number] EXAM: CHEST (2 VIEW) X-RAYCLINICAL INFORMATION: Preoperative evaluation.COMPARISON: 05/21/2018, the latest prior.The superior mediastinal structures are midline. The heart is notenlarged. The diaphragmatic surfaces of the lungs are regular and thecostophrenic angles are clear. The pulmonary weaver are clear. Thevisualized osseous structures are intact.IMPRESSION:There is no acute cardiopulmonary disease. No significant change from theprior exam.DOREEN Rebolledo/slmThank you for referring KRISTIN ORDOÑEZ to our office. Electronically Signed - JOSE NICOLE DO 12/20/20 9:59 Name Value Range Interpretation Code Description Data Tiana rce(s) Supporting Document(s) ID Date Data Source [id number] 12/19/2020 05:28:00 PM EST [facility] Name Value Range Interpretation Code Description Data Tiana rce(s) Supporting Document(s) Thyrotropin [Units/volume] in Serum or Plasma by Detec tion limit <= 0.05 mIU/L 2.39 uIU/mL 0.47 - 5.01 [facility] ID Date Data Source [id number] 12/19/2020 05:03:00 PM EST [facility] Name Value Range Interpretation Code Description Data Tiana rce(s) Supporting Document(s) Hemoglobin A1c/Hemoglobin.total in Blood 4.9 % 4.4 - 6.1 [facility] {A1]{HB] ID Date Data Source [id number] 12/19/2020 05:02:00 PM EST [facility] Name Value Range Interpretation Code Description Data Tiana rce(s) Supporting Document(s) CVE PANEL [facility] LIPID PANEL Cholesterol [Mass/volume] in Serum or Plasma 134 MG/DL 131 - 200 [facility] Deprecated Triglyceride [Mass/volume] in Serum or Plasma 132 MG/DL 3 5 - 160 [facility] HDL 62 MG/DL 29 - 86 [facility] al Cholesterol in LDL [Mass/volume] in Serum or Plasma by Direc t assay 62 mg/dL 65 - 175 L [facility] Cholesterol.total/Cholesterol in HDL [Mass Ratio] in Serum o r Plasma 2.2 3.2 - 4.4 L [facility] LDL/HDL 1.00 1.47 - 3.22 L [facility] CVE RISK CHOL/HDL LDL/HDLMEN: 1/2 AVERAGE 3.43 1.00 AVERAGE 4.97 3.55 2X AVERAGE 9.55 6.25 3X AVERAGE 23.99 7.99WOMEN: 1/2 AVERAGE 3.27 1.47 AVERAGE 4.44 3.22 2X AVERAGE 7.05 5.03 3X AVERAGE 11.04 6.14 ID Date Data Source [id number] 12/19/2020 05:02:00 PM EST [facility] Name Value Range Interpretation Code Description Data Tiana rce(s) Supporting Document(s) COMPREHENSIVE METABOLIC PANEL [facility] COMPREHENSIVE METABOLIC PANEL Sodium [Moles/volume] in Serum or Plasma 142 mEq/L 134 - 153 [facility] Potassium [Moles/volume] in Serum or Plasma 4.2 mEq/L 3.6 - 5.0 [facility] Chloride [Moles/volume] in Serum or Plasma 106 mEq/L 98 - 107 [facility] Carbon dioxide, total [Moles/volume] in Serum or Plasma 28 MEQ/L 22 - 30 [facility] Glucose [Mass/volume] in Serum or Plasma 97 MG/DL 70 - 99 [facility] BUN 16 MG/DL 7 - 21 [facility] Creatinine [Mass/volume] in Serum or Plasma 0.8 MG/DL 0.7 - 1.5 [facility] BUN/CREAT 20 8 - 27 [facility] Protein [Mass/volume] in Serum or Plasma 6.3 G/DL 6.3 - 8.2 [facility] Albumin [Mass/volume] in Serum or Plasma 4.2 G/DL 3.9 - 5.0 [facility] Globulin [Mass/volume] in Serum by calculation 2.1 GM/DL 2.4 - 3.2 L [facility] A/G RATIO 2.0 0.8 - 2.0 [facility] Calcium [Mass/volume] in Serum or Plasma 9.1 MG/DL 8.4 - 10.2 [facility] Bilirubin.total [Mass/volume] in Serum or Plasma <0.7 MG/DL 0.2 - 1.3 [facility] Alkaline phosphatase [Enzymatic activity/volume] in Serum or Plasma 100 U/L 38 - 126 [facility] Aspartate aminotransferase [Enzymatic activity/volume] in Serum or Plasma 17 U/L 5 - 40 [facility] Alanine aminotransferase [Enzymatic activity/volume] in Seru m or Plasma 18 U/L 7 - 56 [facility] Anion gap 3 in Serum or Plasma 8.0 mmol/L 8.0 - 16.0 [facility] AGE 65 yrs [facility] NON-AA GFR >60 mL/min [facility] ital AFR AMER GFR >60 [facility] Male GFR In terprentation 20-49 yrs >60 mL/min Normal 50-59 yrs >56 mL/min Normal 60-69 yrs >49 mL/min Normal 70-79yrs >42 mL/min Normal 80 and above >35 mL/min Normal Female GFR Interpretation 20-39 yrs >60 mL/min Normal 40-49 yrs >58 mL/min Normal 50-59 yrs >51 mL/min Normal 60-69 yrs >45 mL/min Normal 70-79 yrs >39 mL/min Normal 80 and above >32 mL/min Normal ID Date Data Source [id number] 12/19/2020 04:54:00 PM EST [facility] Name Value Range Interpretation Code Description Data Tiana rce(s) Supporting Document(s) CBC W/AUTOMATED DIFF [facility] COMPLETE BLOOD COUNT Leukocytes [#/volume] in Blood by Automated count 5.3 10^3/uL 4.2 - 1 1.0 [facility] Erythrocytes [#/volume] in Blood by Automated count 4.37 10^6/uL 4. 20 - 5.40 [facility] Hemoglobin [Mass/volume] in Blood 14.3 g/dL 12.0 - 16.0 [facility] Hematocrit [Volume Fraction] of Blood by Automated count 42.5 % 3 7.0 - 47.0 [facility] Erythrocyte mean corpuscular volume [Entitic volume] by Auto mated count 97.3 fL 81.0 - 101 [facility] Erythrocyte mean corpuscular hemoglobin [Entitic mass] by Automated count 32.7 pg 27.0 - 34.0 [facility] Erythrocyte mean corpuscular hemoglobin concentration [Mass/volume] by Automated count 33.6 g/dL 31.0 - 36.0 [facility] Erythrocyte distribution width [Ratio] by Automated count 13.2 % 11.5 - 14.5 [facility] Platelets [#/volume] in Blood by Automated count 233 10^3/uL 150 - 45 0 [facility] Platelet mean volume [Entitic volume] in Blood by Automated count 10.3 fL 7.4 - 10.4 [facility] Neutrophils/100 leukocytes in Blood by Automated count 61.8 % 37. 0 - 80.0 [facility] Lymphocytes/100 leukocytes in Blood by Manual count 27.6 % 25.0 - 40.0 [facility] Monocytes/100 leukocytes in Blood by Automated count 6.6 % 3.0 - 8.0 [facility] Eosinophils/100 leukocytes in Blood by Automated count 2.8 % 0.0 - 7.0 [facility] Basophils/100 leukocytes in Blood by Automated count 0.8 % 0.0 - 2.5 [facility] %IG 0.4 % 0.0 - 0.0 H [facility] %NRBC 0.0 % 0.0 - 0.0 [facility] al Neutrophils [#/volume] in Blood by Automated count 3.30 10^3/uL 2.00 - 6.90 [facility] Lymphocytes [#/volume] in Blood by Automated count 1.47 10^3/uL 0.60 - 3.40 [facility] Monocytes [#/volume] in Blood by Automated count 0.35 10^3/uL 0.00 - 0.90 [facility] Eosinophils [#/volume] in Blood by Automated count 0.15 10^3/uL 0.00 - 0.70 [facility] Basophils [#/volume] in Blood by Automated count 0.04 10^3/uL 0.00 - 0.20 [facility] #IG 0.02 10^3/uL 0.00 - 0.10 [facility]ital #NRBC 0.00 10^3/uL 0.00 - 0.00 [facility]ital MANUAL DIFF NOT INDICATED [facility] RBC MORPH NOT INDICATED [facility] ID Date Data Source [id number] 12/19/2020 09:00:00 AM EST [facility] ([facility]) Name Value Range Interpretation Code Description Data Tiana rce(s) Supporting Document(s) Thyrotropin [Units/volume] in Serum or Plasma Laboratory test result [facility] ([facility]) Hemoglobin A1c/Hemoglobin.total in Blood Laboratory test result [facility] ([facility]) ID Date Data Source [id number] 12/28/2020 12:52:16 PM EST [facility], PCName: Silvano madiha HigginsOB: 1955Provider: Avel Jacobs: 12/13/2020 Chief ComplaintNeck pain that radiates into the right shoulder Chief Complaint 2NYSW VAS PAIN Established: JESS completing section: SHANON MERCADO History of Present IllnessRecent test/procedures: Patient was asked and denies having any tests since their last visit. Patient was asked and denies being seen by any Physicians since their last visit. At today's visit patient presents with their Self Implanted Devices The patient does not have any implanted devices. The patient does not have a glucose monitoring device. Patient is currently working. The patient is being seen for a workers compensation follow-up. The workers compensation date of injury is 03/09/2008. Pain Quality: (Neuropathic) burning Pain Quality: (Nociceptive) aching, dull and stabbing Timing: constant Palliation: opioid analgesics Exacerbating: arms over head, head turning left, head turning right, lifting and neck movem ent Pain Score: a current pain level of 8/10, a minimum pain level of 3/10 and a maximum pain level of 10/10. Condition type: The patient is being seen for a chronic condition. PAIN LOCATION: the pain is located in the neck, radiates to the left shoulder and the pain is in the neck more than the arms. The etiology of this injury/condition is degenerative. INJURY MECHANISM: The injury resulted from no known physical event. REVIEW OF PAST DIAGNOSTICS: have included: x- rays. PAST TREATMENT has included: OPIOID ANALGESICS (effective). ASSOCIATED SYMPTOMS: include muscle pain/spasm and radiating. FUNCTIONAL LIMITATIONS: The patient's functional status is limited as follows: ability to participate in aerobic activity and participate in hobbies. MEDICATION SIDE EFFECTS experienced by patient are: no known medication side effects. Review of SystemsConstitutional: Normal. Eyes: Normal. ENT: normal. Cardiovascular: Normal. Respiratory: Normal. Gastrointestinal: Normal. Genitourinary: Normal. M usculoskeletal: neck pain, muscle pain and joint pain. Integumentary: Normal. Neurological: a burning sensation. Psychiatric: Normal. Endocrine: Normal. Hematologic/Lymphatic: Normal. Patient maintains at today's visit there has been no change in his/her hematologic history. I reviewed the above with the patient and I feel the ROS to be negative/normal other than Musculoskeletal and neurological. Active Problems 1. Bulging lumbar disc (722.10) (M51.26) 2. Bursitis of right shoulder (726.10) (M75.51) 3. Cervical radiculopathy (723.4) (M54.12) 4. Chronic low back pain (724.2,338.29) (M54.5,G89.29) 5. Chronic pain (338.29) (G89.29) 6. Chronic pain of right knee (719.46,338.29) (M25.561,G89.29) 7. correction current use of opiate analgesic (V58.69) (Z79.891) 8. Lumbar radiculopathy (724.4) (M54.16) 9. Neck pain (723.1) (M54.2) 10. 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 Restless legs syndrome (333.94) (G25.81) 12. Spinal stenosis of lumbar region with neurogenic claudica tion (724.03) (M48.062) 13. Spondylolisthesis of lumbar region (738.4) (M43.16) Allergies Penicillins Swelling;; Recorded By: Dina Fletcher; 08/21/2015 12:46:31 PM morphine Recorded By: Hema Laguna; 12/13/2020 3:51:31 PMDenied Adhesive Tape Recorded By: Dina Fletcher; 08/21/2015 12:46:31 PM Iodinated Contrast Media Recorded By: Dina Fletcher; 08/21/2015 12:46:31 PM Latex Recorded By: Dina Fletcher; 08/21/2015 12:46:31 PM Current Meds Apple Cider Vinegar TABS;Therapy: (Recorded:11Zoy1449) to Recorded Aspirin 81 MG TABS;Therapy: (Recorded:89Yxe5614) to Recorded Contrave TB12;Therapy: (Recorded:15Nmw7385) to Recorded Gabapentin 300 MG Oral Capsule; take one capsule BID x 1 week then TID after thatdaily MDD:3;Therapy: 68Tvz2981 to (Evaluate:47Ahn9825) Requested for: 73Qfu1812; LastRx:51Gwr8056 Ordered Krill Oil CAPS;Therapy: (Recorded:83Izk2330) to Recorded Lidocaine 5 % External Patch; apply 1- 2 patches to affected area on 12 hrs off 12 hrs.MDD:2;Therapy: 64Dvc5468 to (Evaluate:09Bdx8863) Requested for: 30Rfa9584; LastRx:48Qhj8416 OrderedFormulary Override Reason: Drug has been unsuccessful in the past Multi-Vitamin TABS;Therapy: (Recorded:91Alv0125) to Recorded Olmesartan Medoxomil TABS;Therapy: (Recorded:81Cfd0495) to Recorded [place]-3 CAPS;Therapy: (Recorded:38Zce1466) to Recorded Simvastatin TABS;Therapy: (Recorded:21Xij4650) to Recorded tiZANidine HCl - 4 MG Oral Capsule; TAKE 1 TABLET 3 TIMES DAILY NEEDED MDD:3;Therapy: 10Rgq5495 to (Evaluate:99Fsa9369) Requested for: 32Cgu8742; LastRx:13Rri7279 OrderedFormulary Override Reason: Drug has been unsuccessful in the past traMADol HCl - 50 MG Oral Tablet; Take 1 tablet po TID prn pain MDD:3;Therapy: 13Dbi6880 to (Evaluate:53Shg2931) Requested for: 12Yjh1001; LastRx:55Ngl3959 OrderedLD I have not taken any yet Vitamin B-12 TABS;Therapy: (Recorded:71Nuk5278) to Recorded Vitamin C TABS;Therapy: (Recorded:72Szc2542) to Recorded Vitamin D3 TABS;Therapy: (Recorded:66Mnl5148) to Recorded Past Medical History Denied: History of blood coagulation disorder History of depression (V11.8) (Z86.59) History of Not currently (V49.89) (Z78.9) Denied: History of On anticoagulant therapy Surgical History Denied: History of Cardio-Defib Pulse Gen Venous Attach Electrode To Prev PlacedDefibrillator History of Eyelid Excision And Repair History of Gastric Surgery History of Hysterectomy 10/2010 History of Knee Replacement 04/18/15 Denied: History of Pacemaker Placement Family History Family history of diabetes mellitus (V18.0) (Z83.3) Family history of hypertension (V17.49) (Z82.49) Family history of malignant neoplasm (V16.9) (Z80.9) Social History Current non-drinker of alcohol (V49.89) (Z78.9) Denied: History of Drug use Never a smoker Part-time employment Retired [employer] Recorded: 13Dec2020 03:50PM Height: 5 ft 1 inWeight: 213 lb BMI Calculated: 40.25BSA Calculated: 1.94Systolic: 124, SittingDiastolic: 80, SittingHeart Rate: 72Respiration: 16Temperature: 97.1 FPain Scale: 8 Physical ExamGeneral: The patient is a well nourished/well developed, female, heavy set, who is in no acute distress and appears stated age. Eyes: Lids are atraumatic, no lesions, s clerae are anicteric. Ears, Nose, Mouth, Throat: external ears and nose without trauma. Patient wearing a mask due to COVID-19. Respiratory: Normal chest expansion and respiratory effort. Gait and Station: Gait was antalgic. Psychological: Alert and oriented to person, place and time. Mood and affect are pleasant and appropriate. Judgement intact. Insight normal without delusions or hallucinations. Denies suicidal/homicidal ideation. Assessment 1. Chronic pain (338.29) (G89.29) 2. Cervical radiculopathy (723.4) (M54.12) 3. Bursitis of right shoulder (726.10) (M75.51) 4. Chronic low back pain (724.2,338.29) (M54.5,G89.29) 5. Neck pain (723.1) (M54.2) Plan 1. Follow-up in 2 months Follow Up Follow-up Status: Complete Done: [id number] Appointment for 15 or 30 minutes : Schedule 15 minute appointment Medication:. 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 Patient has been informed. Con trolled Substance Prescribed: TRAMADOL . CONTROLLED SUBSTANCE INFORMATION: I advised the patient today/previously regarding treatment with the above controlled substance and/or narcotic. The patient was then informed of the risks, benefits, and alternatives of the narcotic. The risks discussed included but were not limited to physical and/or psychological dependence, tolerance of the medication, drowsiness, sleepiness, balance/coordination problems, confusion, allergic reaction or any other abnormal symptoms. The patient was advised and agreed to use the medication only as prescribed, and not to drive, or operate heavy equipment or machinery. The patient understood and consented to both undergo a narcotic/opiate regimen and agreed to sign and comply with all of the [facility] terms of a controlled substance treatment and agreement. Patient has received a copy of the Opioid instruction sheet. Patient has been counseled on the changes made to their controlled substance and agrees to continue compliance with the controlled substance agreement previously signed. There are no changes in current medications at this visit. Patient instructed to continue current regimen. Treatment includes: FOLLOW UP: The patient should have a follow up visit in 2 months. 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 Discussion/SummaryPatient presents today with neck pain that radiates into the right shoulder. Patient states she cannot move her arm to lift anything. Patient is going to physical therapy 2 times a week. I am going to take the patient out of work until the next visit. Patient will continue with current medication regimen. Patient will return to the office for follow-up in 2 months. Patient states her understanding and is in agreement with the treatment plan. Work / School NotePATIENT: if you submit this to your employer as an out of work note please be aware this includes PHI (Protected Health Information ). The patient is working at this time. The incident described by the patient is a competent medical cause of this injury. The patient's complaints are consistent with the history of the injury/illness. The patient's history of the injury/illness is consistent with my objective findings. Patient is on permanent disability. Disability rating is 75 %. Marked/severe. The patient is out of work until next visit. Patient out of work until next visit effective 12/13/2020 to 02/10/2021 Verious DisclaimerNYSWC Verious Disclaimer: This document was dictated and electronically signed using [employer] software. A reasonable attempt at proof reading has been made to minimize errors. Please call with any questions. Signatures Electronically signed by : Marcos Jacobs NP; Dec 13 2020 4:08PM EST (Author) Electronically signed by : Gilmar Traylor MD; Dec 14 2020 8:32AM EST Electronically signed by : Marcos Jacobs NP; Dec 28 2020 11:22AM EST (Author) Electronically signed by : Gilmar Traylor MD; Dec 28 2020 12:52PM EST Name Value Range Interpretation Code Description Data Tiana rce(s) Supporting Document(s) ID Date Data Source [id number] 12/02/2020 11:22:54 AM EST [facility], PCName: Silvano madiha CoccoDOB: 1955Provider: Avel Jacobs: 11/22/2020 Chief Complaintright shoulder pain Chief Complaint 2NYSW VAS PAIN Established: JESS completing section: SHANON MERCADO History of Present IllnessRecent test/procedures: Patient was asked and denies having any tests since their last visit. Patient was asked and denies being seen by any Physicians since their last visit. At today's visit patient presents with their Self Implanted Devices The patient does not have any implanted devices. The patient does not have a glucose monitoring device. Patient is currently working. The patient is being seen for a workers compensation follow-up. The workers compensation date of injury is 03/09/2008. Pain Quality: (Neuropathic) burning Pain Quality: (Nociceptive) aching, dull and stabbing Timing: constant Palliation: opioid analgesics Exacerbating: arm movement, head turning left, head turning right, lifting and neck movement Pain Score: a current pain level of 7/10, a minimum pain level of 6/10 and a maximum pain level of 10/10. Condition type: The patient is being seen for a chronic condition. PAIN LOCATION: the pain is located in the neck, radiates to the right shoulder, the pain is greater on the right side more than the left and the pain is in the neck more than the arms. The etiology of this injury/condition is related to an injury / accident. INJURY SETTING: at work. INJURY MECHANISM: The injury resulted from lifting and trauma. REVIEW OF PAST DIAGNOSTICS: have included: MRI. PAST TREATMENT has included: OPIOID ANALGESICS (effective). ASSOCIATED SYMPTOMS: include muscle pain/spasm and radiating. FUNCTIONAL LIMITATIONS: The patient's functional status is limited as follows: ability to participate in aerobic activity and participate in hobbies. MEDICATION SIDE EFFECTS experienced by patient are: no known medication side effects. Review of SystemsConstitutional: Normal. Eyes: Normal. ENT: normal. Cardiovascular: Normal. Respiratory: Normal. Gastrointestinal: Normal. Genitourinary: Normal. Musculoskeletal: muscle pain and neck pain. Integumentary: Normal. Neurological: a burning sensation. Psychiatric: Normal. Endocrine: Normal. Hematologic/Lymphatic: Normal. Patient maintains at today's visit there has been no change in his/her hematologic history. I reviewed the above with the patient and I feel the ROS to be negative/normal other than Musculoskeletal and neurological. Active Problems 1. Bulging lumbar disc (722.10) (M51.26) 2. Bursitis of right shoulder (726.10) (M75.51) 3. Cervical radiculopathy (723.4) (M54.12) 4. Chronic low back pain (724.2,338.29) (M54.5,G89.29) 5. Chronic pain (338.29) (G89.29) 6. 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 Lumbar radiculopathy (724.4) (M54.16) 9. Neck pain (723.1) (M54.2) 10. 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 Restless legs syndrome (333.94) (G25.81) 12. Spinal stenosis of lumbar region with neurogenic claudication (724.03) (M48.062) 13. Spondylolisthesis of lumbar region (738.4) (M43.16) Allergies Penicillins Swelling;; Recorded By: Dina Fletcher; 08/21 12:46:31 PMDenied Adhesive Tape Recorded By: Dina Fletcher; 08/21/2015 12:46:31 PM Iodinated Contrast Media Recorded By: Dina Fletcher; 08/21/2015 12:46:31 PM Latex Recorded By: Dina Fletcher; 08/21/2015 12:46:31 PM Current Meds Apple Cider Vinegar TABS;Therapy: (Recorded:28Fit3411) to Recorded Aspirin 81 MG TABS;Therapy: (Recorded:94Cxw8315) to Recorded Contrave TB12;Therapy: (Recorded:94Wvp1997) to Recorded Gabapentin 300 MG Oral Capsule; take one capsule BID x 1 week then TID after thatdaily MDD:3;Therapy: 02Dec2019 to (Evaluate:98Ets4254) Requested for: 66Irp1073; LastRx:70Een2256 Ordered Krill Oil CAPS;Therapy: (Recorded:23But2749) to Recorded Lidocaine 5 % External Patch; apply 1- 2 patches to affected area on 12 hrs off 12 hrs.MDD:2;Therapy: 14Ffw9981 to (Evaluate:29Vvj0645) Requested for: 17Kwo1781; LastRx:53Dnh2061 OrderedFormulary Override Reason: Drug has been unsuccessful in the past Multi-Vitamin TABS;Therapy: (Recorded:72Xgl1139) to Recorded Olmesartan Medoxomil TABS;Therapy: (Recorded:35Joa6214) to Recorded [place]-3 CAPS;Therapy: (Recorded:15Giy6563) to Recorded Simvastatin TABS;Therapy: (Recorded:21Keo7533) to Recorded tiZANidine HCl - 4 MG Oral Capsule; TAKE 1 TABLET 3 TIMES DAILY NEEDED MDD:3;Therapy: 89Pxd2570 to (Evaluate:14Dec2020) Requested for: 87Ljs2465; LastRx:15Sep2020 OrderedFormulary Override Reason: Drug has been unsuccessful in the past traMADol HCl - 50 MG Oral Tablet; Take 1 tablet po TID prn pain MDD:3;Therapy: 35Wbz0807 to (Evaluate:72Tqd1288) Requested for: 55Vib4494; LastRx:11Sep2020 OrderedLD I have not taken any yet Vitamin B-12 TABS;Therapy: (Recorded:53Yas3377) to Recorded Vitamin C TABS;Therapy: (Recorded:88Irk3235) to Recorded Vitamin D3 TABS;Therapy: (Recorded:89Hlm3673) to Recorded Past Medical History Denied: History of blood coagulation disorder History of depression (V11.8) (Z86.59) History of Not currently (V49.89) (Z78.9) Denied: History of On anticoagulant therapy Surgical History Denied: History of Cardio-Defib Pulse Gen Venous Attach Electrode To Prev PlacedDefibrillator History of Eyelid Excision And Repair History of Gastric Surgery History of Hysterectomy 10/2010 History of Knee Replacement 04/18/15 Denied: History of Pacemaker Placement Family History Family history of diabetes mellitus (V18.0) (Z83.3) Family history of hypertension (V17.49) (Z82.49) Family history of malignant neoplasm (V16.9) (Z80.9) Social History Current non-drinker of alcohol (V49.89) (Z78.9) Denied: History of Drug use Never a smoker Part-time employment Retired VitalsVital Signs Recorded: 94Ren4133 01:05PM Systolic: 118, SittingDiastolic: 64, SittingHeart Rate: 70Respiration: 16Temperature: 97 FPain Scale: 7 Physical ExamGeneral: The patient is a well nourished/well developed, female, who is obese, who is in no acute distress and appears stated age. Eyes: Lids are atraumatic, no lesions, sclerae are anicteric. Ears, Nose, Mouth, Throat: external ears and nose without trauma. Patient wearing a mask due to COVID-19. Respiratory: Normal chest expansion and respiratory effort. Gait and Station: Gait was normal. Skin: Warm, dry, acyanotic. Psychological: Alert and oriented to person, place and time. Mood and affect are pleasant and appropriate. Judgement intact. Insight normal without delusions or hallucinations. Denies suicidal/homicidal ideation. Assessment 1. Chronic pain (338.29) (G89.29) 2. Cervical radiculopathy (723.4) (M54.12) Plan 1. Renew: Gabapentin 300 MG Oral Capsule; take one capsule BID x 1 week then TID after that daily MDD:3 2. Renew: traMADol HCl - 50 MG Oral Tablet; Take 1 tablet po TID prn pain MDD:3LD I have not taken any yet 3. Physical Therapy ([facility]) Referral Treatment Treatment Status: Hold For - Scheduling Requested for: 20Kch0230Llq ___ Weeks : Eight Weeks# of Times a week : Twice a weekPhysical Therapy Options : StrengtheningRequest Type : WC Within GuidelinesLaterality : RT 4. Follow-up in 3 months Follow Up Follow-up Status: Hold For - Scheduling Requested for: 42Eew0721Ywemqvyo Appointment for 15 or 30 minutes : Schedule 15 minute appointment Medication:. There are no changes in current medications at this visit. Patient instructed to continue current regimen. Treatment includes: THERAPIES: Therapy Treatment Plan: - Physical Therapy plan: 2 x per week, for 8 week(s). Working on the following body area(s): UPPER EXTREMITIES. With attention to: evaluation and treatment and strengthening. FOLLOW UP: The patient should have a follow up visit in 3 months. 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 Discussion/SummaryPatient presents today with right shoulder pain. Patient states the current medication regimen and physical therapy allow her to perform activities of daily living such as personal hygiene and house chores without assistance. Patient would not be able to perform these activities without this treatment. Patient will continue with this and return to the office for follow-up in 3 months. Patient states her understanding and is in agreement with the treatment plan. Work / School NotePATIENT: if you submit this to your employer as an out of work note please be aware this includes PHI (Protected Health Information). The incident described by the patient is a competent medical cause of this injury. The patient's complaints are consistent with the history of the injury/illness. The patient's history of the injury/illness is consistent with my objective findings. The percentage of temporary impairment is 75 %. The patient is not working at this time. Verious DisclaimerNYSWC Verious Disclaimer: This document was dictated and electronically signed using [employer] software. A reasonable attempt at proof reading has been made to minimize errors. Please call with any questions. Signatures Electronically signed by : Marcos Jacobs NP; Nov 22 2020 1:25PM EST (Author) Electronically signed by : Gilmar Traylor MD; Nov 23 2020 8:57AM EST Name Value Range Interpretation Code Description Data Tiana rce(s) Supporting Document(s) ID Date Data Source [id number] 10/10/2020 09:25:52 AM EST [facility] PCName: Kristin HigginsOB: 1955Provider: MosesRobbie: 10/09/2020 Reason For VisitShe states that she did have some improvement for the SA injection. She is still having night pain and numbness/tingling in her hand Kristin Ordoñez is here today for Right shoulder. Rohith DOI: 03.09.2008. The patient's pain is managed by [facility]. 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 History of Present IllnessShe reports a long history of right shoulder and cervical pain due to a work-related injury she sustained 03/09/08. She is currently being cared for by Alexandria Rivas who performed a right shoulder subacromial steroid injection approximately 3-1/2 weeks ago at his last visit. She reports noting no improvement with that injection even with Xylocaine in place, although only 1 cc of Xylocaine was utilized. She is currently going to physical therapy for impingement syndrome as well as cervical radiculopathy. She has had both a cervical MRI scan and a right shoulder MRI scan. She describes severe pain when attempting to reach behind her with her right upper extremity. She has pain with active right shoulder abduction as well but it is not severe.She returns for her second visit noting some improvement in her right shoulder pain, approximately 3 weeks since last being seen, having undergone a right shoulder subacromial steroid injection at that last visit. She does report she still has tingly sensations in her hand and fingers. The history from her prior visit is noted above. Results/DataXray findings right shoulder: A Grashey, outlet, and axillary view were again interpreted in my office today which were obtained at [facility] on 05/30/20 and reveal no significant glenohumeral joint or a.c. joint arthroses. There is no evidence of calcific deposits within the soft tissue. There is no evidence for fracture or dislocation. A type III acromion is noted.Right shoulder MRI scan findings:I again interpreted her MRI scan in my office today which was obtained at [facility] on 08/21/20 and reveals some thinning of the supraspinatus tendon as well as some bursal side irregularity consistent with impingement syndrome. AC joint arthroses is also noted. AssessmentRight- sided cervical radiculopathy and right shoulder outlet impingement syndrome. She's noting some improvement with supervised physical therapy. Her repeat right shoulder subacromial Marcaine and steroid injection was helpful. She still complains of dysesthesia to her right hand dry suspect is due to her cervical ra diculopathy. This is due to a work-related injury she sustained 03/09/08. She is a patient of [facility] who manages her pain.Plan:1. Continue supervised physical therapy both for her cervical radiculopathy and her impingement syndrome.2. She will follow-up with Alexandria Rivas for her cervical spine.3. 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 Work / School NoteThe incident described by the patient is a competent medical cause of this injury. The patient's complaints are consistent with the history of the injury/illness. The patient's history of the injury/illness is consistent with my objective findings. The percentage of temporary impairment is 0%. The patient is working at this time. Kristin Ordoñez is retired. This document was dictated and electronically signed using [employer] software. A reasonable attempt at proof reading has been made to minimize errors. Please call with any questions. Signatures Electronically signed by : Robbie Moses M.D.; Oct 10 2020 9:25AM EST (Author) Name Value Range Interpretation Code Description Data Tiana rce(s) Supporting Document(s) ID Date Data Source [id number] 09/18/2020 04:08:48 PM EDT [facility] PCName: Kristin StoneBartoloOB: 1955Provider: Robbie Moses: 09/18/2020 Reason For VisitShe states that the injection given at her last visit did not help per pain. She is going to PT noting slight improvement Kristin Ordoñez is here today for Right shoulder. Patient is seen at the request of Alexandria Newberry DOI: 03.09.2008. The patient's pain is managed by [facility]. 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 History of Present IllnessShlea reports a long history of right shoulder and cervical pain due to a work-related injury she sustained 03/09/08. She is currently being cared for by Alexandria Rivas who performed a right shoulder subacromial steroid injection approximately 3-1/2 weeks ago at his last visit. She reports noting no improvement with that injection even with Xylocaine in place, although only 1 cc of Xylocaine was utilized. She is currently going to physical therapy for impingement syndrome as well as cervical radiculopathy. She has had both a cervical MRI scan and a right shoulder MRI scan. She describes severe pain when attempting to reach behind her with her right upper extremity. She has pain with active right shoulder abduction as well but it is not severe. Results/DataXray findings right shoulder: A Grashey, outlet, and axillary view were interpreted in my office today which were obtained at [facility] on 05/30/20 and reveal no significant glenohumeral joint or a.c. joint arthroses. There is no evidence of calcific deposits within the soft tissue. There is no evidence for fracture or dislocation. A type III acromion is noted.Right shoulder MRI scan findings:I interpreted her MRI scan in my office today which was obtained at [facility] on 08/21/20 and reveals some thinning of the supraspinatus tendon as well as some bursal side irregularity consistent with impingement syndrome. AC joint arthroses is also noted. AssessmentRight-sided cervical radiculopathy and right shoulder outlet impingement syndrome. She's noting some improvement with supervised physical therapy. A subacromial steroid injection with 1 cc of Xylocaine was ineffective even with his Xylocaine in place. This could certainly be because of the minimal volume of Xylocaine. This is due to Worker's Compensation case from 03/09/08.Plan:1. Repeat Subacromial Marcaine and steroid injection followed by return in 3 weeks time for reevaluation.2. Continue with activity modification, ice, and [id number] medication as needed for pain control.3. 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 Work / School NoteThe incident described by the patient is a competent medical cause of this injury. The patient's complaints are consistent with the history of the injury/illness. The patient's history of the injury/illness is consistent with my objective findings. The percentage of temporary impairment is 0%. The patient is working at this time. Kristin Ordoñez is retired. This document was dictated and electronically signed using [employer] software. A reasonable attempt at proof reading has been made to minimize errors. Please call with any questions. Signatures Electronically signed by : Robbie Moses M.D.; Sep 18 2020 4:08PM EST (Author) Name Value Range Interpretation Code Description Data Tiana rce(s) Supporting Document(s) ID Date Data Source [id number] 09/18/2020 10:04:48 AM EDT [facility], PCName: Silvano StoneBartoloOB: 1955Provider: Avel Jacobs: 09/15/2020 Chief ComplaintRight shoulder pain Chief Complaint 2NYSW VAS PAIN Established: 7 MA completing section: Luis Powell CNA History of Present IllnessRecent test/procedures: Patient has had the following tests/procedures since their last visit: MRI of right shoulder, cerivcal spine . Patient was asked and denies being seen by any Physicians since their last visit. The patient was last seen by a [facility] provider on 09/11/2020. At today's visit patient presents with their Self Implanted Devices The patient does not have any implanted devices. The patient does not have a glucose monitoring device. Patient is retired. The patient is being seen for a workers compensation follow-up. The workers compensation date of injury is 03/09/2008. Pain Duration: 03/09/2008 Pain Quality: (Neuropathic) burning Pain Quality: (Nociceptive) aching, dull and stabbing Timing: constant Pall iation: opioid analgesics Exacerbating: arm movement, arms over head, lifting and neck movement Pain Score: a current pain level of 7/10, a minimum pain level of 7/10 and a maximum pain level of 10/10. Condition type: The patient is being seen for a chronic condition. PAIN LOCATION: in the right shoulder. The etiology of this injury/condition is degenerative. INJURY MECHANISM: The injury resulted from no known physical event. PAST TREATMENT has included: OPIOID ANALGESICS (effective). Review of SystemsConstitutional: Normal. Eyes: Normal. ENT: normal. Cardiovascular: Normal. Respiratory: Normal. Gastrointestinal: Normal. Genitourinary: Normal. Musculoskeletal: muscle pain and neck pain. Integumentary: Normal. Neurological: Normal. Psychiatric: Normal. Endocrine: Normal. Hematologic/Lymphatic: Normal. Patient maintains at today's visit there has been no change in his/her hematologic history. I reviewed the above with the patient and I feel the ROS to be negative/normal other than Mus culoskeletal and neurological. Active Problems 1. Bulging lumbar disc (722.10) (M51.26) 2. Cervical radiculopathy (723.4) (M54.12) 3. Chronic low back pain (724.2,338.29) (M54.5,G89.29) 4. Chronic pain (338.29) (G89.29) 5. Chronic pain of right knee (719.46,338.29) (M25.561,G89.29) 6. correction current use of opiate analgesic (V58.69) (Z79.891) 7. Lumbar radiculopathy (724.4) (M54.16) 8. Neck pain (723.1) (M54.2) 9. Psychological factors affecting medical condition (316) (F54) 10. Restless legs syndrome (333.94) (G25.81) 11. Spinal stenosis of lumbar region with neurogenic claudication (724.03) (M48.062) 12. Spondylolisthesis of lumbar region (738.4) (M43.16) Allergies Penicillins Swelling;; Recorded By: Dina Fletcher; 08/21/2015 12:46:31 PMDenied Adhesive Tape Recorded By: Dina Fletcher; 08/21/2015 12:46:31 PM Iodinated Contrast Media Recorded By: Dina Fletcher; 08/21/2015 12:46:31 PM Latex Recorded By: Dina Fletcher; 08/21/2015 12:46:31 PM Current Meds Apple Cider Vinegar TABS; Therapy: (Recorded:36Tyz5305) to Recorded Aspirin 81 MG TABS;Therapy: (Recorded:70Lsa1800) to Recorded Contrave TB12;Therapy: (Recorded:49Aoy7215) to Recorded Gabapentin 300 MG Oral Capsule; take one capsule BID x 1 week then TID after thatdaily MDD:3;Therapy: 02Dec2019 to (Evaluate:50Kwh3149) Requested for: 75Gyu9394; LastRx:20Dbq8705 Ordered Krill Oil CAPS;Therapy: (Recorded:42Syn7818) to Recorded Lidocaine 5 % External Patch; apply 1- 2 patches to affected area on 12 hrs off 12 hrs.MDD:2;Therapy: 14Bxf1540 to (Evaluate:65Oev9918) Requested for: 58Yil6630; LastRx:47Nun2565 OrderedFormular y Override Reason: Drug has been unsuccessful in the past Multi-Vitamin TABS;Therapy: (Recorded:01Xbh9412) to Recorded Olmesartan Medoxomil TABS;Therapy: (Recorded:80Rjn7386) to Recorded [place]-3 CAPS;Therapy: (Recorded:01Rtk9610) to Recorded Simvastatin TABS;Therapy: (Recorded:23Uaq0871) to Recorded tiZANidine HCl - 4 MG Oral Capsule; TAKE 1 TABLET 3 TIMES DAILY NEEDED MDD:3;Therapy: 80Tfz9115 to (Evaluate:75Okx4475) Requested for: 97Wuc2943; LastRx:82Axs8097 OrderedFormulary Override Reason: Drug has been unsuccessful in the past traMADol HCl - 50 MG Oral Tablet; Take 1 tablet po TID prn pain MDD:3;Therapy: 36Ykq2604 to (Evaluate:92Eiw3067) Requested for: 93Gzr4473; LastRx:43Vhu6849 OrderedLD I have not taken any yet Vitamin B-12 TABS;Therapy: (Recorded:57Cet4243) to Recorded Vitamin C TABS;Therapy: (Recorded:74Hlh8507) to Recorded Vitamin D3 TABS;Therapy: (Recorded:20Jwy0037) to Recorded Past Medical History Denied: History of blood coagulation disorder History of depression (V11.8) (Z86.59) History of Not currently (V49.89) (Z78.9) Denied: History of On anticoagulant therapy Surgical History Denied: History of Cardio-Defib Pulse Gen Venous Attach Electrode To Prev PlacedDefibrillator History of Eyelid Excision And Repair History of Gastric Surgery History of Hysterectomy 10/2010 History of Knee Replacement 04/18/15 Denied: History of Pacemaker Placement Family History Family history of diabetes mellitus (V18.0) (Z83.3) Family history of hypertension (V17.49) (Z82.49) Family history of malignant neoplasm (V16.9) (Z80.9) Social History Current non-drinker of alcohol (V49.89) (Z78.9) Denied: History of Drug use Never a smoker Part-time employment Retired VitalsVital Signs Recorded: 15Sep2020 02:51PM Height: 5 ft 1 inWeight: 212 lb BMI Calculated: 40.06BSA Calculated: 1.94Systolic: 130, SittingDiastolic: 80, SittingHeart Rate: 66Respiration: 16Temperature: 97.2 FHeight measured w/wo shoes: w/shoesPain Scale: 7 Physical ExamGeneral: The patient is a well nourished/well developed, female, who is obese, who is in no acute distress and appears stated age. Eyes: Lids are atraumatic, no lesions, sclerae are anicteric. Ears, Nose, Mouth, Throat: external ears and nose without trauma. Patient wearing a mask due to COVID-19. Respiratory: Normal chest expansion and respiratory effort. Gait and Station: Gait was normal. Psychological: Alert and oriented to person, place and time. Mood and affect are pleasant and appropriate. Judgement intact. Insight normal without delusions or hallucinations. Denies suicidal/homicidal ideation. Assessment 1. Chronic pain (338.29) (G89.29) 2. Bursitis of right shoulder (726.10) (M75.51) Plan 1. Renew: tiZANidine HCl - 4 MG Oral Capsule (Zanaflex); TAKE 1 TABLET 3 TIMES DAILY NEEDED MDD:3Formulary Override Reason: Drug has been unsuccessful in the past 2. Follow-up in 2 months Follow Up Follow-up Status: Hold For - Scheduling Requested for: 24Txy2991Pbndcmiw Appointment for 15 or 30 minutes : Schedule 15 minute appointment Medication:. There are no changes in current medications at this visit. Patient instructed to continue current regimen. Discussion/SummaryPatient presents today with neck pain and right shoulder pain. Patient states she is getting a surgical consult for the right shoulder in September. Patient will return to the office for follow-up in 2 months. Patient will continue with current medication regimen. Patient states her understanding and is in agreement with the treatment plan. Work / School NotePATIENT: if you submit this to your employer as an out of work note please be aware this includes PHI (Protected Health Information). The incident described by the patient is a competent medical cause of this injury. The patient's complaints are consistent with the history of the injury/illness. The patient's history of the injury/illness is consistent with my objective findings. The percentage of temporary impairment is 75 %. The patient is not working at this time. Verious DisclaimerNYSWC Verious Disclaimer: This document was dictated and electronically signed using [employer] software. A reasonable attempt at proof reading has been made to minimize errors. Please call with any questions. Signatures Electronically signed by : Marcos Jacobs NP; Sep 15 2020 3:18PM EST (Author) Electronically signed by : Danny Bishop MD; Sep 18 2020 10:04AM EST Name Value Range Interpretation Code Description Data Tiana rce(s) Supporting Document(s) ID Date Data Source [id number] 09/12/2020 08:33:10 AM EDT [facility], PCName: Silvano HigginsOB: 1955Provider: Avel Jacobs: 09/11/2020 Chief ComplaintLow back pain Chief Complaint 2NYSW VAS PAIN Established: MA completing section: DB SUPERVISOR CORE DRILLING History of Present IllnessRecent test/procedures: Patient was asked and denies having any tests since their last visit. Patient has been seen by the following physician since their last visit: DR. JOSHUA At today's visit patient presents with their Self Implanted Devices The patient does not have any implanted devices. The patient does not have a glucose monitoring device. Patient is currently working. 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 The patient is being seen for a workers compensation follow-up. The workers compensation date of injury is 10/24/05. Pain Quality: (Neuropathic) burning Pain Quality: (Nociceptive) aching, dull and stabbing Timing: constant Palliation: non-opioid analgesics and nonsteroidal anti-inflammatory drugs Exacerbating: bending, lifting, standing and twisting Pain Score: a current pain level of 6/10, a minimum pain level of 5/10 and a maximum pain level of 9/10. Condition type: The patient is being seen for a chronic condition. PAIN LOCATION: the pain is located in the low back , and the pain is in the back more than legs. The etiology of this injury/condition is related to an injury / accident. INJURY SETTING: at work. INJURY MECHANISM: The injury resulted from lifting, twisting and bending. REVIEW OF PAST DIAGNOSTICS: have included: MRI. PAST TREATMENT has included: OPIOID ANALGESICS (effective). ASSOCIATED SYMPTOMS: include muscle pain/spasm and radiating. FUNCTIONAL LIMITATIONS: The patient's functional status is limited as follows: ability to participate in aerobic activity and participate in hobbies. MEDICATION SIDE EFFECTS experienced by patient are: no known medication side effects. Review of SystemsConstitutional: Normal. Eyes: Normal. ENT: normal. Cardiovascular: Normal. Respiratory: Normal. Gastrointesti nal: Normal. Genitourinary: Normal. Musculoskeletal: lower back pain. Integumentary: Normal. Neurological: a burning sensation. Psychiatric: Normal. Endocrine: Normal. Hematologic/Lymphatic: Normal. Patient maintains at today's visit there has been no change in his/her hematologic history. I reviewed the above with the patient and I feel the ROS to be negative/normal other than Musculoskeletal and neurological. Active Problems 1. Bulging lumbar disc (722.10) (M51.26) 2. Cervical radiculopathy (723.4) (M54.12) 3. Chronic low back pain (724.2,338.29) (M54.5,G89.29) 4. Chronic pain (338.29) (G89.29) 5. Chronic pain of right knee (719.46,338.29) (M25.561,G89.29) 6. correction current use of opiate analgesic (V58.69) (Z79.891) 7. Lumbar radiculopathy (724.4) (M54.16) 8. Neck pain (723.1) (M54.2) 9. Psychological factors affecting medical condition (316) (F54) 10. Restless legs syndrome (333.94) (G25.81) 11. Spinal stenosis of lumbar region with neurogenic claudication (724.03) (M48.062) 12. Spon dylolisthesis of lumbar region (738.4) (M43.16) Allergies Penicillins Swelling;; Recorded By: Dina Fletcher; 08/21/2015 12:46:31 PMDenied Adhesive Tape Recorded By: Dina Fletcher; 08/21/2015 12:46:31 PM Iodinated Contrast Media Recorded By: Dina Fletcher; 08/21/2015 12:46:31 PM Latex Recorded By: Dina Fletcher; 08/21/2015 12:46:31 PM Current Meds Apple Cider Vinegar TABS;Therapy: (Recorded:76Cbw6371) to Recorded Aspirin 81 MG TABS;Therapy: (Recorded:17Vxc9884) to Recorded Contrave TB12;Therapy: (Recorded:74Syi4306) to Recorded Gabapentin 300 MG Oral Capsule; take one capsule BID x 1 week then TID after thatdaily MDD:3;Therapy: 02Dec2019 to (Evaluate:21Oba6788) Requested for: 52Amp5891; LastRx:93Fgz5081 Ordered Krill Oil CAPS;Therapy: (Recorded:78Wqs9712) to Recorded Lidocaine 5 % External Patch; apply 1- 2 patches to affected area on 12 hrs off 12 hrs.MDD:2;Therapy: 03Qtf3549 to (Evaluate:07Sep2019) Requested for: 41Gvy9019; LastRx:84Dyz9203 OrderedFormulary Override Reason: Drug has been unsuccessful in the past Multi-Vitamin TABS;Therapy: (Recorded:75Ryg8442) to Recorded Olmesartan Medoxomil TABS;Therapy: (Recorded:95Ids6710) to Recorded [place]-3 CAPS;Therapy: (Recorded:01Phl2251) to Recorded Simvastatin TABS;Therapy: (Recorded:47Wpu1287) to Recorded tiZANidine HCl - 4 MG Oral Capsule; TAKE 1 TABLET 3 TIMES DAILY NEEDED MDD:3;Therapy: 69Dee4605 to (Evaluate:07May2020) Requested for: 97Ljn3972; LastRx:80Qlc0261 OrderedFormulary Override Reason: Drug has been unsuccessful in the past Vitamin B-12 TABS;Therapy: (Recorded:37Qyx8109) to Recorded Vitamin C TABS;Therapy: (Recorded:86Qxc9923) to Recorded Vitamin D3 TABS;Therapy: (Recorded:73Lrc4668) to Recorded Past Medical History Denied: History of blood coagulation disorder History of depression (V11.8) (Z86.59) History of Not currently (V49.89) (Z78.9) Denied: History of On anticoagulant therapy Surgical History Denied: History of Cardio-Defib Pulse Gen Venous Attach Electrode To Prev PlacedDefibrillator History of Eyelid Excision And Repair History of Gastric Surgery History of Hysterectomy 10/2010 History of Knee Replacement 04/18/15 Denied: History of Pacemaker Placement Family History Family history of diabetes mellitus (V18.0) (Z83.3) Family history of hypertension (V17.49) (Z82.49) Family history of malignant neoplasm (V16.9) (Z80.9) Social History Current non-drinker of alcohol (V49.89) (Z78.9) Denied: History of Drug use Never a smoker Part-time employment Retired VitalsVital Signs Recorded: 53Swz6611 02:42PM Height: 5 ft 1 inWeight: 210 lb BMI Calculated: 39.68BSA Calculated: 1.93Systolic: 103, SittingDiastolic: 70, SittingHeart Rate: 66Respiration: 17Temperature: 97.1 F, TympanicHeight measured w/wo shoes: w/shoesPain Scale: 6 Physical ExamGeneral: The patient is a well nourished/well developed, female, who is morbidly obese, who is in no acute distress and appears stated age. Eyes: Lids are atraumatic, no lesions, sclerae are anicteric. Ears, Nose, Mouth, Throat: external ears and nose without trauma. Patient wearing a mask due to COVID-19. Respiratory: Normal chest expansion and respiratory effort. Gait and Station: Gait was antalgic. P sychological: Alert and oriented to person, place and time. Mood and affect are pleasant and appropriate. Judgement intact. Insight normal without delusions or hallucinations. Denies suicidal/homicidal ideation. Assessment 1. Chronic pain (338.29) (G89.29) 2. Lumbar radiculopathy (724.4) (M54.16) 3. Spinal stenosis of lumbar region with neurogenic claudication (724.03) (M48.062) 4. Bulging lumbar disc (722.10) (M51.26) 5. Spondylolisthesis of lumbar region (738.4) (M43.16) 6. Chronic low back pain (724.2,338.29) (M54.5,G89.29) Plan 1. Renew: tiZANidine HCl - 4 MG Oral Capsule (Zanaflex); TAKE 1 TABLET 3 TIMES DAILY NEEDED MDD:3Formulary Override Reason: Drug has been unsuccessful in the past 2. Renew: traMADol HCl - 50 MG Oral Tablet; Take 1 tablet po TID prn pain MDD:3LD 3 weeks 3. Follow-up in 2 months Follow Up Follow-up Status: Hold For - Scheduling Requested for: 44Qpx5512Bvfydmsk Appointment for 15 or 30 minutes : Schedule 15 minute appointment Medication:. 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 Patient has been informed. Controlled Substance Prescribed: TRAMdol . CONTROLLED SUBSTANCE INFORMATION: I advised the patient today/previously regarding treatment with the above controlled substance and/or narcotic. The patient was then informed of the risks, benefits, and alternatives of the narcotic. The risks discussed included but were not limited to physical and/or psychological dependence, tolerance of the medication, drowsiness, sleepiness, balance/coordination problems, confusion, allergic reaction or any other abnormal symptoms. The patient was advised and agreed to use the medication only as prescribed, and not to drive, or operate heavy equipment or machinery. The patient understood and consented to both undergo a narcotic/opiate regimen and agreed to sign and comply with all of the [facility] terms of a controlled substance treatment and agreement. Patient has received a copy of the Opioid instruction sheet. Patient has been counseled on the changes made to their controlled substance and agrees to continue compliance with the controlled substance agreement previously signed. There are no changes in current medications at this visit. Patient instructed to continue current regimen. Treatment includes: FOLLOW UP: The patient should have a follow up visit in 2 months. 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 Discussion/SummaryPresents today with low back pain. Patient states he current medication regimen controls her pain so that she is able to do activities of daily living such as personal hygiene and house chores. Patient will continue with this and return to the office for follow-up in 2 months. Patient states her understanding and is in agreement with the treatment plan. Work / School NotePATIENT: if you submit this to your employer as an out of work note please be aware this includes PHI (Protected Health Information). The patient is working at this time. The incident described by the patient is a competent medical cause of this injury. The patient's complaints are consistent with the history of the injury/illness. The patient's history of the injury/illness is consistent with my objective findings. Patient is on permanent disability. Disability rating is 75 %. Marked/severe. Dragon DisclaimerNYSWC Verious Disclaimer: This document was dictated and electronically signed using [employer] software. A reasonable attempt at proof reading has been made to minimize errors. Please call with any questions. Signatures Electronically signed by : Marcos Jacobs NP; Sep 11 2020 3:13PM EST (Author) Electronically signed by : Stevie Monreal MD; Sep 12 2020 8:33AM EST Name Value Range Interpretation Code Description Data Tiana rce(s) Supporting Document(s) ID Date Data Source [id number] 08/28/2020 11:30:47 AM EDT [facility] PC[facility]: Kristin HigginsOB: 1955Provider: Nathan Rivas: 08/25/2020 History of Present IllnessThis is a 64-year-old female who is here to review her cervical and right shoulder MRI scans. She has some neck pain, but her biggest complaint is mechanical shoulder pain. She has a lot of increased pain with abduction and extension of the right shoulder. She has been in physical therapy for the last 4 weeks but really did not see much improvement. Results/Data OtherCervical MRI scan shows moderate facet arthropathy C4-5. She has mild canal and moderate to severe foraminal stenosis at C5-6, left greater than right. Right shoulder MRI scan also done on 08/21/2020 shows moderate tendinosis of the supraspinatus tendon. Moderate AC joint arthritis. Mild subdeltoid bursitis. Assessment 1. Neck pain (723.1) (M54.2) 2. Right shoulder pain (719.41) (M25.511) 3. Spinal stenosis of cervical region (723.0) (M48.02) 4. Impingement syndrome of right shoulder (726.2) (M75.41) Plan Physical Therapy (SOS) - Spinal WC Physical Therapy Evaluation and Treatment Status:Complete Done: 25Aug2020 Ordered;For: PMH: Impingement syndrome of right shoulder; Ordered By: Alexandria Rivas Performed: Due: 08Sep2020; Last Updated By: Merlyn Huntley; 08/25/2020 3:45:37 PMDuration: : Four WeeksPT Frequency : Two or three times a weekSOS ROM and Strength : Range of motion and strengthening exercises.Heat Ultra and Modalities : Heat Ultrasound and modalities as indicatedEvaluate and Treat: : Please evaluate and treat as indicated. Plan, Assessment and Recommendation(s) I am requesting authorization for more physical therapy for right shoulder impingement syndrome. She was also given a steroid injection Depo-Medrol 80 mg with 1 cc of lidocaine 1% into the right subacromial space. She tolerated this well. The area was sterilely prepped with alcohol prior to the injection. I am going to have her see 1 of our shoulder specialist in 1 month for reevaluation. Work / School NoteThe i ncident described by the patient is a competent medical cause of this injury. The patient's complaints are consistent with the history of the injury/illness. The patient's history of the injury/illness is consistent with my objective findings. The percentage of temporary impairment is 75%. The patient is not working at this time. Sedentary work only. This document was dictated and electronically signed using [employer] software. A reasonable attempt at proof reading has been made to minimize errors. Please call with any questions. 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 Chronic pain rightshoulder and neck. Numbness and throbbing down right upper extremity. Limitedrange of motion.COMPARISON: X-rays of 05/30/2020TECHNIQUE: MRI scan of the right shoulder was performed on a 1.5T GE Scannerusing various scan planes and pulse sequences.FINDINGS: Rotator cuff: Moderate intermediate T2 signal parallels the long axis of thesupraspinatus tendon. The supraspinous tendon is mildly thinned and irregular. No full-thickness tear is identified. Infraspinatus, subscapularis and teresminor tendons are intact. No muscle atrophy or edema.Biceps tendon/Glenoid labrum: Intact.AC joint/Coracoacromial arch: Acromion is type 2. Moderate joint spaceirregularity with small joint effusion. Moderate juxta-articular hypertrophicchanges. Mild impression on the upper aspect of the supraspinatus.Glenohumeral joint: The articular cartilage is well preserved. No marginal osteophytes. No significant joint effusion. Bones: No fracture or bone contusion. No destructive bone lesion. Bursae: Small amount of fluid subacromial subdeltoid bursa.IMPRESSION: 1. Moderate tendinosis supraspinatus. No full-thickness tear.2. Acromioclavicular osteoarthropathy moderate severity.3. Subacromial subdeltoid bursitis mild severity.Age of findings: Tendinosis and osteoarthropathy are chronic. 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 Chronic pain rightshoulder and neck. Numbness and throbbing down right upper extremity. Limitedrange of motion.COMPARISON: X-rays 05/30/2020TECHNIQUE: MRI scan was performed on a 1.5T GE Scanner using various scan planesand pulse sequences.FINDINGS: The visualized vertebral bodies are normal in height. No fracture ordestructive bone lesion. Benign hemangioma T2 vertebral body. Ce rvical spinalcord is normal in course, caliber, and signal intensity.C2-3: Mild broad-based central disc protrusion. Mild thecal sac compression. No cord compression. Moderate left facet arthropathy. Foramina are patent.C3-4: Moderate left facet arthropathy. No disc herniation or stenosis. Foramina are patent.C4-5: Moderate left facet arthropathy. 2 mm anterolisthesis. Small leftuncinate osteophytes. Mild narrowing left foramen. No canal stenosis.C5-6: Mild disc space narrowing. Disc bulge with bilateral disc osteophytecomplexes. Mild thecal sac compression. Moderate stenosis right foramen andmoderate to severe stenosis left foramen.C6-7: Mild facet arthropathy. Mild disc bulge. Mild thecal sac compression. No significant canal stenosis. Foramina are patent.C7-T1: Unremarkable.IMPRESSION: 1. C2-3 small central disc protrusion.2. C4-5 moderate facet arthropathy and 2 mm anterolisthesis.3. C5-6 mild degenerative disc disease. Mild canal stenosis. Moderate tosevere foraminal st enosis left greater than right.Age of findings: Facet arthropathy, anterolisthesis, canal and foraminalstenosis are chronic. Central disc protrusion at C2-3 is age indeterminate.Read by: ENRIKE GILLETTETranscribed by: ENRIKE PERSAUDTranscribed Date: 08/22/2020 9:19:43 AMElectronically signed by: ENRIKE PERSAUDDahien signed: 08/22/2020 9:31:20 AM Name Value Range Interpretation Code Description Data Tiana rce(s) Supporting Document(s) ID Date Data Source [id number] 08/02/2020 09:00:00 AM EDT [facility] ([facility]) Name Value Range Interpretation Code Description Data Tiana rce(s) Supporting Document(s) Hemoglobin A1c/Hemoglobin.total in Blood 4.8 % 4.4-6.1 [facility] ([facility]) Is patient fasting? N Thyrotropin [Units/volume] in Serum or Plasma 2.26 uIU/mL 0.47-5.01 [facility] ([facility]) Is patient fasting? N ID Date Data Source [id number] 08/02/2020 09:00:00 AM EDT [facility] ([facility]) Name Value Range Interpretation Code Description Data [facility] rce(s) Supporting Document(s) Cve Panel Laboratory test result [facility] ([facility]) Is patient fasting? N Cholesterol 118 mg/dL 131-200 Below low normal [facility] ([facility]) Is patient fasting? N Triglycerides 107 mg/dL 35-160 [facility] ([facility]) Is patient fasting? N HDL 56 mg/dL 29-86 [facility] ([facility]) Is patient fasting? N Risk Factor 2.1 3.2-4.4 Below low normal [facility] ([facility]) Is patient fasting? N LDL 45 mg/dL 65-175 Below low normal [facility] ([facility]) Is patient fasting? N LDL/HDL 0.80 1.47-3.22 Below low normal [facility] ( [facility]) Is patient fasting? N ID Date Data Source [id number] 08/02/2020 09:00:00 AM EDT [facility] ([facility]) Name Value Range Interpretation Code Description Data Tiana rce(s) Supporting Document(s) Potassium 4.2 meq/L 3.6-5.0 [facility] ([facility]) Is patient fasting? N Comprehensive [employer] Laboratory test result [facility] ([facility]) Is patient fasting? N Sodium 143 meq/L 134-153 [facility] ([facility]) Is patient fasting? N Co2 24 meq/L 22-30 [facility] ([facility]) Is patient fasting? N Chloride 110 meq/L 98-107 Above high normal [facility] ([facility]) Is patient fasting? N Glucose 91 mg/dL 65-110 [facility] ([facility]) Is patient fasting? N BUN 13 mg/dL 7-21 [facility] ([facility]) Is patient fasting? N BUN/Creat 14 8-27 [facility] ([facility]) Is patient fasting? N Creatinine 0.9 mg/dL 0.7-1.5 MEDENT ([facility]) Is patient fasting? N Total Protein 6.2 g/dL 6.3-8.2 Below low normal MEDEN T ([facility]) Is patient fasting? N Globulin 2.3 GM/DL 2.4-3.2 Below low normal MEDENT ( [facility]) Is patient fasting? N Albumin 3.9 g/dL 3.9-5.0 MEDENT ([facility]) Is patient fasting? N A/G Ratio 1.7 0.8-2.0 [facility] ([facility]) Is patient fasting? N Total Bili 0.7 mg/dL 0.2-1.3 MEDENT ([facility]) Is patient fasting? N Calcium 8.9 mg/dL 8.4-10.2 [facility] ([facility]) Is patient fasting? N Sgot/Ast 20 U/L 5-40 [facility] ([facility]) Is patient fasting? N SGPT/Alt 19 U/L 7-56 [facility] ([facility]) Is patient fasting? N Alkaline Phos 103 U/L 38-126 [facility] ([facility]) Is patient fasting? N Age 64 yrs MEDENT ([facility]) Is patient fasting? N Non-Aa GFR Laboratory test result MED[facility] ([facility]) Is patient fasting? N Anion Gap 9.0 mmol/L 8.0-16.0 MEDENT ([facility]) Is patient fasting? N Afr Amer GFR Laboratory test result MEDENT ([facility]) Is patient fasting? N ID Date Data Source [id number] 08/02/2020 09:00:00 AM EDT MEDENT ([facility]) Name Value Range Interpretation Code Description Data Tiana rce(s) Supporting Document(s) CBC W/Automated Diff Laboratory test result MEDENT ([facility]) Is patient fasting? N WBC 5.7 10^3/uL 4.2-11.0 [facility] ([facility]) Is patient fasting? N RBC 4.09 10^6/uL 4.20-5.40 Below low normal MEDENT ([facility]) Is patient fasting? N Hemoglobin 12.9 g/dL 12.0-16.0 MEDENT ([facility]) Is patient fasting? N Hematocrit 38.8 % 37.0-47.0 MEDENT ([facility]) Is patient fasting? N MCV 94.9 fL 81.0-101 MEDENT ([facility]) Is patient fasting? N MCH 31.5 pg 27.0-34.0 [facility] ([facility]) Is patient fasting? N MCHC 33.2 g/dL 31.0-36.0 [facility] ([facility]) Is patient fasting? N RDW 15.5 % 11.5-14.5 Above high normal MEDENT ([facility]) Is patient fasting? N Platelets 219 10^3/uL 150-450 [facility] ([facility]) Is patient fasting? N MPV 10.2 fL 7.4-10.4 [facility] ([facility]) Is patient fasting? N Lymph 22.0 % 25.0-40.0 Below low normal MED[facility] ( [facility]) Is patient fasting? N Neut 67.3 % 37.0-80.0 [facility] ([facility]) Is patient fasting? N [place] 7.0 % 3.0-8.0 [facility] ([facility]) Is patient fasting? N Eos 2.8 % 0.0-7.0 [facility] ([facility]) Is patient fasting? N Baso 0.5 % 0.0-2.5 [facility] ([facility]) Is patient fasting? N %NRBC 0.0 % 0.0-0.0 [facility] ([facility]) Is patient fasting? N %Ig 0.4 % 0.0-0.0 Above high normal MEDENT ([facility]) Is patient fasting? N #[place] 0.40 10^3/uL 0.00-0.90 MED[facility] ([facility]) Is patient fasting? N #Lymph 1.25 10^3/uL 0.60-3.40 [facility] ([facility]) Is patient fasting? N #Neut 3.83 10^3/uL 2.00-6.90 [facility] ([facility]) Is patient fasting? N #Eos 0.16 10^3/uL 0.00-0.70 [facility] ([facility]) Is patient fasting? N #Baso 0.03 10^3/uL 0.00-0.20 [facility] ([facility]) Is patient fasting? N #Ig 0.02 10^3/uL 0.00-0.10 [facility] ([facility]) Is patient fasting? N #NRBC 0.00 10^3/uL 0.00-0.00 [facility] ([facility]) Is patient fasting? N Manual Diff Laboratory test result M EDENT ([facility]) Is patient fasting? N RBC Morph Laboratory test result [facility] ([facility]) Is patient fasting? N ID Date Data Source [id number] 08/02/2020 05:13:00 PM EDT [facility] Name Value Range Interpretation Code Description Data Tiana rce(s) Supporting Document(s) Thyrotropin [Units/volume] in Serum or Plasma by Detec tion limit <= 0.05 mIU/L 2.26 uIU/mL 0.47 - 5.01 [facility] ID Date Data Source [id number] 08/02/2020 05:06:00 PM EDT [facility] Name Value Range Interpretation Code Description Data Tiana rce(s) Supporting Document(s) CVE PANEL [facility] LIPID PANEL Cholesterol [Mass/volume] in Serum or Plasma 118 MG/DL 131 - 200 L [facility] Deprecated Triglyceride [Mass/volume] in Serum or Plasma 107 MG/DL 3 5 - 160 [facility] HDL 56 MG/DL 29 - 86 [facility] Cholesterol in LDL [Mass/volume] in Serum or Plasma by Direc t assay 45 mg/dL 65 - 175 L [facility] Cholesterol.total/Cholesterol in HDL [Mass Ratio] in Serum o r Plasma 2.1 3.2 - 4.4 L [facility] LDL/HDL 0.80 1.47 - 3.22 L [facility] CVE RISK CHOL/HDL LDL/HDLMEN: 1/2 AVERAGE 3.43 1.00 AVERAGE 4.97 3.55 2X AVERAGE 9.55 6.25 3X AVERAGE 23.99 7.99WOMEN: 1/2 AVERAGE 3.27 1.47 AVERAGE 4.44 3.22 2X AVERAGE 7.05 5.03 3X AVERAGE 11.04 6.14 ID Date Data Source [id number] 08/02/2020 05:06:00 PM EDT [facility] Name Value Range Interpretation Code Description Data Tiana rce(s) Supporting Document(s) COMPREHENSIVE METABOLIC PANEL [facility] COMPREHENSIVE METABOLIC PANEL Sodium [Moles/volume] in Serum or Plasma 143 mEq/L 134 - 153 [facility] Potassium [Moles/volume] in Serum or Plasma 4.2 mEq/L 3.6 - 5.0 [facility] Chloride [Moles/volume] in Serum or Plasma 110 mEq/L 98 - 107 H [facility] Carbon dioxide, total [Moles/volume] in Serum or Plasma 24 MEQ/L 22 - 30 [facility] Glucose [Mass/volume] in Serum or Plasma 91 MG/DL 65 - 110 [facility] BUN 13 MG/DL 7 - 21 [facility] Creatinine [Mass/volume] in Serum or Plasma 0.9 MG/DL 0.7 - 1.5 [facility] BUN/CREAT 14 8 - 27 [facility] al Protein [Mass/volume] in Serum or Plasma 6.2 G/DL 6.3 - 8.2 L [facility] Albumin [Mass/volume] in Serum or Plasma 3.9 G/DL 3.9 - 5.0 [facility] Globulin [Mass/volume] in Serum by calculation 2.3 GM/DL 2.4 - 3.2 L [facility] A/G RATIO 1.7 0.8 - 2.0 [facility] Calcium [Mass/volume] in Serum or Plasma 8.9 MG/DL 8.4 - 10.2 [facility] Bilirubin.total [Mass/volume] in Serum or Plasma 0.7 MG/DL 0.2 - 1.3 [facility] Alkaline phosphatase [Enzymatic activity/volume] in Serum or Plasma 103 U/L 38 - 126 [facility] Aspartate aminotransferase [Enzymatic activity/volume] in Serum or Plasma 20 U/L 5 - 40 [facility] Alanine aminotransferase [Enzymatic activity/volume] in Seru m or Plasma 19 U/L 7 - 56 [facility] Anion gap 3 in Serum or Plasma 9.0 mmol/L 8.0 - 16.0 [facility] AGE [address] [facility] al NON-AA GFR >60 mL/min [facility] AFR AMER GFR >60 [facility] Male GFR In terprentation 20-49 yrs >60 mL/min Normal 50-59 yrs >56 mL/min Normal 60-69 yrs >49 mL/min Normal 70-79yrs >42 mL/min Normal 80 and above >35 mL/min Normal Female GFR Interpretation 20-39 yrs >60 mL/min Normal 40-49 yrs >58 mL/min Normal 50-59 yrs >51 mL/min Normal 60-69 yrs >45 mL/min Normal 70-79 yrs >39 mL/min Normal 80 and above >32 mL/min Normal ID Date Data Source [id number] 08/02/2020 04:56:00 PM EDT [facility] Name Value Range Interpretation Code Description Data Tiana rce(s) Supporting Document(s) CBC W/AUTOMATED DIFF [facility] COMPLETE BLOOD COUNT Leukocytes [#/volume] in Blood by Automated count 5.7 10^3/uL 4.2 - 1 1.0 [facility] Erythrocytes [#/volume] in Blood by Automated count 4.09 10^6/uL 4. 20 - 5.40 L [facility] Hemoglobin [Mass/volume] in Blood 12.9 g/dL 12.0 - 16.0 [facility] Hematocrit [Volume Fraction] of Blood by Automated count 38.8 % 3 7.0 - 47.0 [facility] Erythrocyte mean corpuscular volume [Entitic volume] by Auto mated count 94.9 fL 81.0 - 101 [facility] Erythrocyte mean corpuscular hemoglobin [Entitic mass] by Automated count 31.5 pg 27.0 - 34.0 [facility] Erythrocyte mean corpuscular hemoglobin concentration [Mass/volume] by Automated count 33.2 g/dL 31.0 - 36.0 [facility] Erythrocyte distribution width [Ratio] by Automated count 15.5 % 11.5 - 14.5 H [facility] Platelets [#/volume] in Blood by Automated count 219 10^3/uL 150 - 45 0 [facility] Platelet mean volume [Entitic volume] in Blood by Automated count 10.2 fL 7.4 - 10.4 [facility] Neutrophils/100 leukocytes in Blood by Automated count 67.3 % 37. 0 - 80.0 [facility] Lymphocytes/100 leukocytes in Blood by Manual count 22.0 % 25.0 - 40.0 L [facility] Monocytes/100 leukocytes in Blood by Automated count 7.0 % 3.0 - 8.0 [facility] Eosinophils/100 leukocytes in Blood by Automated count 2.8 % 0.0 - 7.0 [facility] Basophils/100 leukocytes in Blood by Automated count 0.5 % 0.0 - 2.5 [facility] %IG 0.4 % 0.0 - 0.0 H [facility] %NRBC 0.0 % 0.0 - 0.0 [facility] al Neutrophils [#/volume] in Blood by Automated count 3.83 10^3/uL 2.00 - 6.90 [facility] Lymphocytes [#/volume] in Blood by Automated count 1.25 10^3/uL 0.60 - 3.40 [facility] Monocytes [#/volume] in Blood by Automated count 0.40 10^3/uL 0.00 - 0.90 [facility] Eosinophils [#/volume] in Blood by Automated count 0.16 10^3/uL 0.00 - 0.70 [facility] Basophils [#/volume] in Blood by Automated count 0.03 10^3/uL 0.00 - 0.20 [facility] #IG 0.02 10^3/uL 0.00 - 0.10 [facility] #NRBC 0.00 10^3/uL 0.00 - 0.00 [facility] ospital MANUAL DIFF NOT INDICATED [facility] RBC MORPH NOT INDICATED [facility] spital ID Date Data Source [id number] 08/02/2020 04:55:00 PM EDT [facility] Name Value Range Interpretation Code Description Data Tiana rce(s) Supporting Document(s) Hemoglobin A1c/Hemoglobin.total in Blood 4.8 % 4.4 - 6.1 [facility] {A1]{HB] ID Date Data Source [id number] 07/11/2020 10:46:39 AM EDT [facility], PCName: Silvano cleary RonaldoOB: 1955Provider: Cisco Herrera: 07/11/2020 Chief ComplaintPatient is being seen for chronic right shoulder and neck pain from a workers compensation injury from 03/09/2008 Chief Complaint 2NYSW VAS PAIN Established: MA completing section: hwaldron History of Present IllnessA Urine Drug Screen was ordered for Kristin Ordoñez and collected on site today 07/11/2020. Creatinine has been ordered as well for specimen validity, not for kidney function. Preliminary UDS results are not final and should not be used to determine patient care or plan of treatment. Initially a qualitative immunoassay screen will be done. Please note this is not a dip test. Any positive findings or negative findings that are out of compliance will be further tested with a more comprehensive quantitative confirmation LCMS study. It is part of the normal prescribing protocol of controlled substances and is considered standard of care. Recent test/procedures: Patient was asked and denies having any tests since their last visit. Patient was asked and denies being seen by any Physicians since their last visit. The patient was last seen by a [facility] provider on 02/23/2020. At today's visit patient presents with their Self Patient is retired. The patient is being seen for a follow-up. The workers compensation date of injury is 03/09/2008. Pain Quality: (Nociceptive) aching Timing: constant Palliation: rest Exacerbating: side sleeping position and hanging arm down Pain Score: a current pain level of 5/10. Condition type: The patient is being seen for a chronic condition. PAIN LOCATION: the pain is located in the neck, radiates to the right shoulder and in the right shoulder. The etiology of this injury/condition is related to an injury / accident. INJURY SETTING: at work. PAST EVALUATION: The patient has been previously evaluated by the following specialty: Orthopedic evaluation by. Provider records were obtained, reviewed and on file. INTERVAL EVENTS: include . Patient is being seen for a new issue for her chronic neck and right shoulder pain from a wc injury 03/09/2008. 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 She did see Dr. Crawley in the past when she first got injured and now saw [facility] for her neck and right shoulder. She is doing PT for both currently and did state that she is able to have a bit more ROM of her right shoulder, but still can not put her arm behind her back. She is waiting for the EMG and MRI to be done. ASSOCIATED SYMPTOMS: include radiating. Review of SystemsConstitutional: Normal. Eyes: Normal. ENT: normal. Cardiovascular: Normal. Respiratory: Normal. Gastrointestinal: Normal. Genitourinary: Normal. Musculoskeletal: neck pain, joint pain and limb pain. Integumentary: Normal. Neurological: Normal. Psychiatric: Normal. Endocrine: Normal. Hematologic/Lymphatic: Normal. Active Problems 1. Bulging lumbar disc (722.10) (M51.26) 2. Cervical radiculopathy (723.4) (M54.12) 3. Chronic low back pain (724.2,338.29) (M54.5,G89.29) 4. Chronic pain (338.29) (G89.29) 5. 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 Lumbar radiculopathy (724.4) (M54.16) 8. Neck pain (723.1) (M54.2) 9. Psychological factors affecting medical condition (316) (F54) 10. Restless legs syndrome (333.94) (G25.81) 11. Spinal stenosis of lumbar region with neurogenic claudication (724.03) (M48.062) 12. Spondylolisthesis of lumbar region (738.4) (M43.16) Allergies Penicillins Swelling;; Recorded By: Dina Fletcher; 08/21/2015 12:46:31 PMDenied Adhesive Tape Recorded By: Dina Fletcher; 08/21/2015 12:46:31 PM Iodinated Contrast Media Recorded By: Dina Fletcher; 08/21/2015 12:46:31 PM Latex Recorded By: Dina Fletcher; 08/21/2015 12:46:31 PM Current Meds Apple Cider Vinegar TABS;Therapy: (Recorded:70Crz4169) to Recorded Aspirin 81 MG TABS;Therapy: (Recorded:88Ssp1024) to Recorded Contrave TB12;Therapy: (Recorded:95Ggb1213) to Recorded Gabapentin 300 MG Oral Capsule; take one capsule BID x 1 week then TID after thatdaily MDD:3;Therapy: 02Dec2019 to (Evaluate:31Mar2020) Requested for: 02Dec2019; LastRx:02Dec2019 O rdered Krill Oil CAPS;Therapy: (Recorded:61Lzc5895) to Recorded Lidocaine 5 % External Patch; apply 1- 2 patches to affected area on 12 hrs off 12 hrs.MDD:2;Therapy: 80Tlr0536 to (Evaluate:07Sep2019) Requested for: 47Oex1929; LastRx:89Rrh0788 OrderedFormulary Override Reason: Drug has been unsuccessful in the past Multi-Vitamin TABS;Therapy: (Recorded:06Nrm0855) to Recorded Olmesartan Medoxomil TABS;Therapy: (Recorded:50Hgn2986) to Recorded [place]-3 CAPS;Therapy: (Recorded:76Hlp9057) to Recorded Simvastatin TABS;Therapy: (Recorded:52Sop1686) to Recorded tiZANidine HCl - 4 MG Oral Capsule; TAKE 1 TABLET 3 TIMES DAILY NEEDED MDD:3;Therapy: 49Guu6238 to (Evaluate:06Lec0069) Requested for: 90Wqt5948; LastRx:95Tql0626 OrderedFormulary Override Reason: Drug has been unsuccessful in the past Vitamin B-12 TABS;Therapy: (Recorded:39Pwt0437) to Recorded Vitamin C TABS;Therapy: (Recorded:12Yxh6642) to Recorded Vitamin D3 TABS;Therapy: (Recorded:79Cok0921) to Recorded Past Medical History Denied: History of blood coagulation disorder History of depression (V11.8) (Z86.59) History of Not currently (V49.89) (Z78.9) Denied: History of On anticoagulant therapy Surgical History Denied: History of Cardio-Defib Pulse Gen Venous Attach Electrode To Prev PlacedDefibrillator History of Eyelid Excision And Repair History of Gastric Surgery History of Hysterectomy 10/2010 History of Knee Replacement 04/18/15 Denied: History of Pacemaker Placement Family History Family history of diabetes mellitus (V18.0) (Z83.3) Family history of hypertension (V17.49) (Z82.49) Family history of malignant neoplasm (V16.9) (Z80.9) Social History Current non-drinker of alcohol (V49.89) (Z78.9) Denied: History of Drug use Never a smoker Part-time employment Retired VitalsVital Signs Recorded: 17Gdj3309 09:10AM Height: 5 ft 1 inWeight: 221 lb BMI Calculated: 41.76BSA Calculated: 1.97Systolic: 177, SittingDiastolic: 85, SittingHeart Rate: 64Respiration: 17Temperature: 97.7 F, TympanicHeight measured w/wo shoes: w/shoesPain Scale: 5 Physical ExamGeneral: The patient is a well nourished/well developed, female, heavy set, who is in no acute distress and appears stated age. Eyes: Lids are atraumatic, no lesions, sclerae are anicteric. Respiratory: Normal chest expansion and respiratory effort. Gait and Station: Gait was antalgic. The patient can get on/off the table without assistance. Cervical Spine: Spinal alignment exhibits normal lordosis.- Palpation/Tenderness: Tenderness on palpation of the left: negative right greater occipital, negative left lesser occipital, negative left paraspinal and negative left trapezius muscle. Tenderness on palpation of the RIGHT: paraspinal and trapezius muscle, but negative right greater occipital and negative right lesser occipital. Palpatory findings include no bilateral muscle spasms and no trigger points were noted.- ROM: Flexion: flexion was not restricted, was painless. Extension: extension was not restricted, was painful. Right lateral flexion: was painless. Left Rotation: left rotation was not restricted, was painless. Right rotation: right rotation was not restricted.Right Upper Extremity Motor: - Wrist: 5/5 flexion, 5/5 extension- Elbow: 5/5 flexion, 5/5 extension- Shoulder: 5/5 Abduction, 5/5 Adduction- Hand Weatherization Technician 5/5 Left Upper Extremity Motor:- Wrist: 5/5 flexion, 5/5 extension- Elbow: 5/5 flexion, 5/5 extension- Shoulder: 5/5 Abduction, 5/5 Adduction- Hand Weatherization Technician 5/5 Neurological:Sensation Upper:Left Upper: normalRight Upper: normal. - ROM/Motor: (patient can not put her right arm behind her back and raised it up to shoulder height when compared to the left arm). Skin: Warm, dry, acyanotic. Psychological: Alert and oriented to person, place and time. Mood and affect are pleasant and appropriate. Judgement intact. Insight normal without delusions or hallucinations. Assessment 1. Chronic pain (338.29) (G89.29) 2. Neck pain (723.1) (M54.2) 3. Cervical radiculopathy (723.4) (M54.12) Plan 1. Renew: Gabapentin 300 MG Oral Capsule; take one capsule BID x 1 week then TID after that daily MDD:3 2. Follow-up in 2 months Follow Up Follow-up Status: Hold For - Scheduling Requested for: [id number] Appointment for 15 or 30 minutes : Schedule 15 minute appointment Medication:. General Medications Prescribed: GABAPENTIN . GENERAL MEDICATIONS: I advised the patient today/previously regarding treatment with the above medication(s). The risks, benefits, common side effects and alternative treatments were discussed with the patient. The provider verbalized with the patient. The patient verbalized understanding and was told to call if there were any untoward effects. There are no changes in current medications at this visit. Patient instructed to continue current regimen. The prescribed medications are medically necessary for pain management and rehabilitation. Treatment includes: PROCEDURE(S): The patient is not a candidate for block/procedures at this time FOLLOW UP: The patient should have a follow up visit in 2 months. CONTINUE TREATMENT: Kristin will continue with the following: Physical Therapy. - GEEK SQUAD AGENT: The patient was counseled on the following: treatment plan. Discussion/SummaryPatient is being seen for a new issue for her chronic neck and right shoulder pain from a wc injury 03/09/2008. 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 She did see Dr. Crawley in the past when she first got injured and now saw [facility] for her neck and right shoulder. She is doing PT for both currently and did state that she is able to have a bit more ROM of her right shoulder, but still can not put her arm behind her back. She is waiting for the EMG and MRI to be done. Start the patient back on gabapentin 300 mg 3 times a day for her pain and radicular type symptoms. We will await the findings of her imaging studies to move forward. Patient will continue with her physical therapy and seeing [facility]. She will follow up back in 2 months. Patient is in agreement with treatment plan. Work / School NotePATIENT: if you submit this to your employer as an out of work note please be aware this includes PHI (Protected Health Information). The incident described by the patient is a competent medical cause of this injury. The patient's complaints are consistent with the history of the injury/illness. The patient's history of the injury/illness is consistent with my objective findings. The percentage of temporary impairment is 75 %. The patient is not working at this time. Dragon DisclaimerNYSWC Verious Disclaimer: This document was dictated and electronically signed using Tipser Speaking software. A reasonable attempt at proof reading has been made to minimize errors. Please call with any questions. Signatures Electronically signed by : Berenice Herrera PA-C; Jul 11 2020 9:55AM EST (Author) Electronically signed by : Kt Gold MD; Jul 11 2020 10:46AM EST Name Value Range Interpretation Code Description Data Tiana rce(s) Supporting Document(s) ID Date Data Source [id number] 06/21/2020 08:52:05 AM EDT [facility]: Kristin RonaldoOB: 1955Provider: Bhavesh Corcoran: 06/20/2020 History of Present IllnessPatient is seen in follow up from last visit. Since last visit she has been attending physical therapy. This is a pleasant 64-year-old female who has continued pain in her cervical spine as well as pain and decreased range of motion of her right shoulder. She also has numbness in her right hand. She does have occasional pain that radiates from her cervical spine down her right arm. She has been going to physical therapy. She does not feel that therapy has been hugely helpful. She has full passive range of motion but she has significantly limited active range of motion with abduction, forward elevation, and internal rotation. She does have trouble sleeping at night because of the symptoms. Assessment 1. Neck pain (723.1) (M54.2) 2. Right shoulder pain (719.41) (M25.511) 3. Numbness of hand (782.0) (R20.0) Plan MRI ([facility]) Referral Diagnostic Diagnostic Status: Hold For - Scheduling ([facility]OS) Requested for: [id number] Ordered;For: Degeneration of intervertebral disc at C5-C6 level, Degeneration of intervertebral disc at C6-C7 level, Right cervical radiculopathy; Ordered By: Ana Corcoran Performed: Due: 04Jul2020; Last Updated By: Gisela Osman; 06/20/2020 8:29:48 AMMRI Ordered Contrast : 01: without gadoLaterality: : _Not Applicable NCS/EMG ([facility]) WC Referral Diagnostic Diagnostic Status: Need Information - WCScheduling (SOS) Requested for: [id number] Ordered;For: Impingement syndrome of shoulder region, Right shoulder pain; Ordered By: Ana Gunter Performed: Due: 04Jul2020; Last Updated By: Gisela Osman; 06/20/2020 8:31:09 AMLaterality: : BilateralExtremity : Upper Extremity Plan, Assessment and Recommendation(s) Worker's Compensation. The various options reviewed include physical therapy. She wishes to proceed with physical therapy. No prescriptions were given today. The patient does have continued cervical radicular complaints. She does have continued impingement symptoms in her right shoulder I am recommending an MRI scan of the cervical spine and right shoulder. Also given the numbness in her right hand and get nerve conduction study to rule out carpal tunnel should be obtained as well. Physical therapy has been of limited benefit. She also did discuss with me today that she has been taking tramadol for a lot and for a long period of time for other orthopedic issues. She does use a muscle relaxers well. She does not feel the tramadol has been helpful recently to control her symptoms. She would like something different that may be more beneficial. I did discuss that we do not write pain medication here at this office but I would send her to the pain clinic for consultation for medication management and also the potential for an injection pending the MRI scan results. Work / School NoteThe incident described by the patient is a competent medical cause of this injury. The patient's complaints are consistent with the history of the injury/illness. The patient's history of the injury/illness is consistent with my objective findings. The percentage of temporary impairment is 75%. The patient is not working at this time. This document was dictated and electronically signed using [employer] software. A reasonable attempt at proof reading has been made to minimize errors. Please call with any questions. Signatures Electronically signed by : Ana Corcoran NP; Jun 20 2020 9:01AM EST (Co-author) Electronically signed by : Jose G Mirza M.D.; Jun 21 2020 8:52AM EST Name Value Range Interpretation Code Description Data Tiana rce(s) Supporting Document(s) ID Date Data Source [id number] 05/31/2020 10:19:22 AM EDT [facility] Kristin Gupta: 1955Provider: Bhavesh Corcoran: 05/30/2020 History of Present IllnessThimaria esther is a pleasant 64-year-old who presents today with reports of pain in her cervical spine. There is pain that radiates down her right arm into her right hand. She also reports pain specifically in her right shoulder with also decreased motion over the past several months. Results/DataXRays were ordered, obtained and interpreted today in the office. Indication: pain/dysfunction. Site: cervical spine, right shoulder 4 views of the cervical spine were obtained today. There is loss of disc space at C5-6 and C6-7 along with C7-T1. Slight anterolisthesis of C4 and 5 and flexion.There is degeneration noted in the right a.c. joint. Assessment 1. Right shoulder pain (719.41) (M25.511) 2. Neck pain (723.1) (M54.2) 3. Right cervical radiculopathy (723.4) (M54.12) Plan X-Ray I Cervical Spine - 4 views (XRays were ordered, obtained and interpreted today inthe office. Indication: pain/dysfunction.); Status:Complete; Done: 41Svp2717 Perform:SOS14 (General); Due:55Csa3819; Last Updated By:Kyleigh Mohan; 05/30/2020 9:58:31 AM;Ordered; For:Neck pain; Ordered By:Ana Corcoran; X-Ray I Shoulder - 2 views (XRays were ordered, obtained and interpreted today in theoffice. Indication: pain/dysfunction.); Status:Complete; Done: 06Hdb7666 Perform:SOS14 (General); Due:21Buu4181; Last Updated By:Kyleigh Mohan; 05/30/2020 10:27:58 AM;Ordered; For:Right shoulder pain; Ordered By:Ana Corcoran;Laterality: : Right Physical Therapy (SOS) - Spinal Physical Therapy Evaluation and Treatment Status:Complete Done: 13Bmn1116 Ordered;For: Impingement syndrome of right shoulder, Neck pain, Right cervical radiculopathy, Right shoulder pain; Ordered By: Ana Corcoran Performed: Order Comments: 03/09/08 neck + shoulder Due: 30Dej7736; Last Updated By: Anna Espana; 05/30/2020 11:01:53 AMDuration: : Four WeeksPT Frequency : Two or three times a weekTraction Needed : NoSOS ROM and Strength : Range of motion and strengthening exercises.Heat Ultra and Modalities : Heat Ultrasound and modalities as indicatedEvaluate and Treat: : Please evaluate and treat as indicated. Plan, Assessment and Recommendation(s) Worker's Compensation. No prescriptions were given today. The various options reviewed include physical therapy. She wishes to proceed with physical therapy. She does have cervical radicular complaints to do believe that her main issue today is her right shoulder and impingement there. I am recommending physical therapy of the right shoulder and cervical spine and follow up here once the PT is completed. Work / School NoteThe incident described by the patient is a competent medical cause of this injury. The patient's complaints are consistent with the history of the injury/illness. The patient's history of the injury/illness is consistent with my objective findings. The percentage of temporary impairment is 75%. The patient is not working at this time. This document was dictated and electronically signed using [employer] software. A reasonable attempt at proof reading has been made to minimize errors. Please call with any questions. Signatures Electronically signed by : Ana Corcoran NP; May 30 2020 4:50PM EST (Co-author) Electronically signed by : Jose G Mirza M.D.; May 31 2020 10:19AM EST Name Value Range Interpretation Code Description Data Tiana rce(s) Supporting Document(s) ID Date Data Source [id number] 03/20/2020 08:04:00 AM EDT [facility] ([facility]) Name Value Range Interpretation Code Description Data Tiana rce(s) Supporting Document(s) Hemoglobin A1c/Hemoglobin.total in Blood 5.2 % 4.4-6.1 [facility] ([facility]) {A1] {HB] Thyrotropin [Units/volume] in Serum or Plasma 3.71 uIU/mL 0.47-5.01 [facility] ([facility]) Is patient fasting? N ID Date Data Source [id number] 03/20/2020 08:04:00 AM EDT [facility] ([facility]) Name Value Range Interpretation Code Description Data Tiana rce(s) Supporting Document(s) Cve Panel Laboratory test result [facility] ([facility]) LIPID PANEL Cholesterol 125 mg/dL 131-200 Below low normal [facility] ([facility]) Is patient fasting? N HDL 68 mg/dL 29-86 [facility] ([facility]) Is patient fasting? N Triglycerides 121 mg/dL 35-160 [facility] ([facility]) Is patient fasting? N Risk Factor 1.8 3.2-4.4 Below low normal [facility] ([facility]) Is patient fasting? N LDL 50 mg/dL 65-175 Below low normal [facility] ([facility]) Is patient fasting? N LDL/HDL 0.74 1.47-3.22 Below low normal [facility] ( [facility]) CVE RISK CHOL/HDL LDL/HDL MEN: 1/2 AVERAGE 3.43 1.00 AVERAGE 4.97 3.55 2X AVERAGE 9.55 6.25 3X AVERAGE 23.99 7.99 WOMEN: 1/2 AVERAGE 3.27 1.47 AVERAGE 4.44 3.22 2X AVERAGE 7.05 5.03 3X AVERAGE 11.04 6.14 ID Date Data Source [id number] 03/20/2020 08:04:00 AM EDT [facility] ([facility]) Name Value Range Interpretation Code Description Data Tiana rce(s) Supporting Document(s) Comprehensive Metabo Laboratory test result [facility] ([facility]) COMPREHENSIVE METABOLIC PANEL Sodium 145 meq/L 134-153 [facility] ([facility]) Is patient fasting? N Chloride 111 meq/L 98-107 Above high normal [facility] ([facility]) Is patient fasting? N Potassium 4.2 meq/L 3.6-5.0 [facility] ([facility]) Is patient fasting? N Glucose 89 mg/dL 65-110 [facility] ([facility]) Is patient fasting? N BUN 17 mg/dL 7-21 [facility] ([facility]) Is patient fasting? N Co2 26 meq/L 22-30 [facility] ([facility]) Is patient fasting? N BUN/Creat 19 8-27 [facility] ([facility]) Is patient fasting? N Creatinine 0.9 mg/dL 0.7-1.5 [facility] ([facility]) Is patient fasting? N Total Protein 6.0 g/dL 6.3-8.2 Below low normal [facility] ([facility]) Is patient fasting? N Albumin 4.0 g/dL 3.9-5.0 [facility] ([facility]) Is patient fasting? N Globulin 2.0 GM/DL 2.4-3.2 Below low normal [facility] ( [facility]) Is patient fasting? N A/G Ratio 2.0 0.8-2.0 [facility] ([facility]) Is patient fasting? N Total Bili Laboratory test result 0.2-1.3 [facility] ([facility]) Is patient fasting? N Calcium 9.2 mg/dL 8.4-10.2 [facility] ([facility]) Is patient fasting? N Alkaline Phos 91 U/L 38-126 [facility] Is patient fasting? N Sgot/Ast 18 U/L 5-40 [facility] ([facility]) Is patient fasting? N SGPT/Alt 18 U/L 7-56 [facility] ([facility]) Is patient fasting? N Anion Gap 8.0 mmol/L 8.0-16.0 [facility] ([facility]) Is patient fasting? N Age 64 yrs [facility] ([facility]) Is patient fasting? N Afr Amer GFR Laboratory test result [facility] ([facility]) Male GFR Interprentation 20-49 yrs >60 mL/min Normal 50-59 yrs >56 mL/min Normal 60-69 yrs >49 mL/min Normal 70-79yrs >42 mL/min Normal 80 and above >35 mL/min Normal Female GFR Interpretation 20-39 yrs >60 mL/min Normal 40-49 yrs >58 mL/min Normal 50-59 yrs >51 mL/min Normal 60-69 yrs >45 mL/min Normal 70-79 yrs >39 mL/min Normal 80 and above >32 mL/min Normal Non-Aa GFR Laboratory test result [facility] ([facility]) Is patient fasting? N ID Date Data Source [id number] 03/20/2020 08:04:00 AM EDT [facility] Name Value Range Interpretation Code Description Data Tiana rce(s) Supporting Document(s) CBC W/Automated Diff Laboratory [facility] COMPLETE BLOOD COUNT WBC 4.7 10^3/uL 4.2-11.0 [facility] ([facility]) Is patient fasting? N RBC 4.14 10^6/uL 4.20-5.40 Below low normal [facility] ([facility]) Is patient fasting? N Hemoglobin 12.7 g/dL 12.0-16.0 [facility] ([facility]) Is patient fasting? N Hematocrit 39.3 % 37.0-47.0 [facility] ([facility]) Is patient fasting? N MCV 94.9 fL 81.0-101 [facility] ([facility]) Is patient fasting? N MCH 30.7 pg 27.0-34.0 [facility] ([facility]) Is patient fasting? N MCHC 32.3 g/dL 31.0-36.0 [facility] ([facility]) Is patient fasting? N RDW 14.6 % 11.5-14.5 Above high normal [facility] ([facility]) Is patient fasting? N Platelets 215 10^3/uL 150-450 [facility] ([facility]) Is patient fasting? N MPV 10.1 fL 7.4-10.4 [facility] ([facility]) Is patient fasting? N Neut 57.9 % 37.0-80.0 [facility] ([facility]) Is patient fasting? N Lymph 31.5 % 25.0-40.0 [facility] ([facility]) Is patient fasting? N [place] 7.0 % 3.0-8.0 [facility] ([facility]) Is patient fasting? N Baso 0.6 % 0.0-2.5 [facility] ([facility]) Is patient fasting? N Eos 3.0 % 0.0-7.0 [facility] ([facility]) Is patient fasting? N %NRBC 0.0 % 0.0-0.0 [facility] ([facility]) Is patient fasting? N %Ig 0.0 % 0.0-0.0 [facility] ([facility]) Is patient fasting? N #Lymph 1.49 10^3/uL 0.60-3.40 [facility] ([facility]) Is patient fasting? N #Neut 2.74 10^3/uL 2.00-6.90 [facility] ([facility]) Is patient fasting? N #[place] 0.33 10^3/uL 0.00-0.90 [facility] ([facility]) Is patient fasting? N #Eos 0.14 10^3/uL 0.00-0.70 [facility] ([facility]) Is patient fasting? N #Baso 0.03 10^3/uL 0.00-0.20 [facility] ([facility]) Is patient fasting? N #NRBC 0.00 10^3/uL 0.00-0.00 [facility] ([facility]) Is patient fasting? N #Ig 0.00 10^3/uL 0.00-0.10 [facility] ([facility]) Is patient fasting? N Manual Diff Laboratory test result [facility] ([facility]) Is patient fasting? N RBC Morph Laboratory test result [facility] ([facility]) Is patient fasting? N ID Date Data Source [id number] 03/20/2020 05:37:00 PM EDT [facility] Name Value Range Interpretation Code Description Data Tiana rce(s) Supporting Document(s) Thyrotropin [Units/volume] in Serum or Plasma by Detec tion limit <= 0.05 mIU/L 3.71 uIU/mL 0.47 - 5.01 [facility] ID Date Data Source [id number] 03/20/2020 05:23:00 PM EDT [facility] Name Value Range Interpretation Code Description Data Tiana rce(s) Supporting Document(s) CVE PANEL [facility] al LIPID PANEL Cholesterol [Mass/volume] in Serum or Plasma 125 MG/DL 131 - 200 L [facility] Deprecated Triglyceride [Mass/volume] in Serum or Plasma 121 MG/DL 3 5 - 160 [facility] HDL 68 MG/DL 29 - 86 [facility] al Cholesterol in LDL/Cholesterol in HDL [Mass Ratio] in Serum or Plasma 50 mg/dL 65 - 175 L [facility] Cholesterol.total/Cholesterol in HDL [Mass Ratio] in Serum o r Plasma 1.8 3.2 - 4.4 L [facility] LDL/HDL 0.74 1.47 - 3.22 L [facility] CVE RISK CHOL/HDL LDL/HDLMEN: 1/2 AVERAGE 3.43 1.00 AVERAGE 4.97 3.55 2X AVERAGE 9.55 6.25 3X AVERAGE 23.99 7.99WOMEN: 1/2 AVERAGE 3.27 1.47 AVERAGE 4.44 3.22 2X AVERAGE 7.05 5.03 3X AVERAGE 11.04 6.14 ID Date Data Source [id number] 03/20/2020 05:23:00 PM EDT [facility] Name Value Range Interpretation Code Description Data Tiana rce(s) Supporting Document(s) COMPREHENSIVE METABOLIC PANEL [facility] COMPREHENSIVE METABOLIC PANEL Sodium [Moles/volume] in Serum or Plasma 145 mEq/L 134 - 153 [facility] Potassium [Moles/volume] in Serum or Plasma 4.2 mEq/L 3.6 - 5.0 [facility] Chloride [Moles/volume] in Serum or Plasma 111 mEq/L 98 - 107 H [facility] Carbon dioxide, total [Moles/volume] in Serum or Plasma 26 MEQ/L 22 - 30 [facility] Glucose [Mass/volume] in Serum or Plasma 89 MG/DL 65 - 110 [facility] BUN 17 MG/DL 7 - 21 [facility] al Creatinine [Mass/volume] in Serum or Plasma 0.9 MG/DL 0.7 - 1.5 [facility] BUN/CREAT 19 8 - 27 [facility] al Protein [Mass/volume] in Serum or Plasma 6.0 G/DL 6.3 - 8.2 L [facility] Albumin [Mass/volume] in Serum or Plasma 4.0 G/DL 3.9 - 5.0 [facility] Globulin [Mass/volume] in Serum by calculation 2.0 GM/DL 2.4 - 3.2 L [facility] A/G RATIO 2.0 0.8 - 2.0 [facility] al Calcium [Mass/volume] in Serum or Plasma 9.2 MG/DL 8.4 - 10.2 [facility] Bilirubin.total [Mass/volume] in Serum or Plasma <0.7 MG/DL 0.2 - 1.3 [facility] Alkaline phosphatase [Enzymatic activity/volume] in Serum or Plasma 91 U/L 38 - 126 [facility] Aspartate aminotransferase [Enzymatic activity/volume] in Serum or Plasma 18 U/L 5 - 40 [facility] Alanine aminotransferase [Enzymatic activity/volume] in Seru m or Plasma 18 U/L 7 - 56 [facility] Anion gap 3 in Serum or Plasma 8.0 mmol/L 8.0 - 16.0 [facility] AGE 64 yrs [facility] al NON-AA GFR >60 mL/min [facility] ital AFR AMER GFR >60 [facility] Male GFR In terprentation 20-49 yrs >60 mL/min Normal 50-59 yrs >56 mL/min Normal 60-69 yrs >49 mL/min Normal 70-79yrs >42 mL/min Normal 80 and above >35 mL/min Normal Female GFR Interpretation 20-39 yrs >60 mL/min Normal 40-49 yrs >58 mL/min Normal 50-59 yrs >51 mL/min Normal 60-69 yrs >45 mL/min Normal 70-79 yrs >39 mL/min Normal 80 and above >32 mL/min Normal ID Date Data Source [id number] 03/20/2020 04:49:00 PM EDT [facility] Name Value Range Interpretation Code Description Data Tiana rce(s) Supporting Document(s) Hemoglobin A1c/Hemoglobin.total in Blood 5.2 % 4.4 - 6.1 [facility] {A1]{HB] ID Date Data Source [id number] 03/20/2020 04:45:00 PM EDT [facility] Name Value Range Interpretation Code Description Data Tiana rce(s) Supporting Document(s) CBC W/AUTOMATED DIFF [facility] COMPLETE BLOOD COUNT Leukocytes [#/volume] in Blood by Automated count 4.7 10^3/uL 4.2 - 1 1.0 [facility] Erythrocytes [#/volume] in Blood by Automated count 4.14 10^6/uL 4. 20 - 5.40 L [facility] Hemoglobin [Mass/volume] in Blood 12.7 g/dL 12.0 - 16.0 [facility] Hematocrit [Volume Fraction] of Blood by Automated count 39.3 % 3 7.0 - 47.0 [facility] Erythrocyte mean corpuscular volume [Entitic volume] by Auto mated count 94.9 fL 81.0 - 101 [facility] Erythrocyte mean corpuscular hemoglobin [Entitic mass] by Automated count 30.7 pg 27.0 - 34.0 [facility] Erythrocyte mean corpuscular hemoglobin concentration [Mass/volume] by Automated count 32.3 g/dL 31.0 - 36.0 [facility] Erythrocyte distribution width [Ratio] by Automated count 14.6 % 11.5 - 14.5 H [facility] Platelets [#/volume] in Blood by Automated count 215 10^3/uL 150 - 45 0 [facility] Platelet mean volume [Entitic volume] in Blood by Automated count 10.1 fL 7.4 - 10.4 [facility] Neutrophils/100 leukocytes in Blood by Automated count 57.9 % 37. 0 - 80.0 [facility] Lymphocytes/100 leukocytes in Blood by Manual count 31.5 % 25.0 - 40.0 [facility] Monocytes/100 leukocytes in Blood by Automated count 7.0 % 3.0 - 8.0 [facility] Eosinophils/100 leukocytes in Blood by Automated count 3.0 % 0.0 - 7.0 [facility] Basophils/100 leukocytes in Blood by Automated count 0.6 % 0.0 - 2.5 [facility] %IG 0.0 % 0.0 - 0.0 [facility] al %NRBC 0.0 % 0.0 - 0.0 [facility] al Neutrophils [#/volume] in Blood by Automated count 2.74 10^3/uL 2.00 - 6.90 [facility] Lymphocytes [#/volume] in Blood by Automated count 1.49 10^3/uL 0.60 - 3.40 [facility] Monocytes [#/volume] in Blood by Automated count 0.33 10^3/uL 0.00 - 0.90 [facility] Eosinophils [#/volume] in Blood by Automated count 0.14 10^3/uL 0.00 - 0.70 [facility] Basophils [#/volume] in Blood by Automated count 0.03 10^3/uL 0.00 - 0.20 [facility] #IG 0.00 10^3/uL 0.00 - 0.10 [facility] #NRBC 0.00 10^3/uL 0.00 - 0.00 [facility] MANUAL DIFF NOT INDICATED [facility] RBC MORPH NOT INDICATED [facility] ID Date Data Source [id number] 03/23/2020 08:37:35 AM EDT [facility], PCName: Silvano StoneBartoloOB: 1955Provider: ArleneMarcosWILLIAM: 02/23/2020 Chief ComplaintLow back pain Chief Complaint 2[facility] Telemedicine - Explanation to patient regarding Telemedicine: Explanation to patient regarding telemedicine Patient initiated contact with the office via phone call or via patient portal to schedule a Telehealth visit. I explained to the patient that telemedicine is the practice of using telecommunications technology to evaluate, diagnose and care for patients at a distance. Telehealth visits are a way for [facility] to continue providing quality care to our patients while still practicing mandated social distancing, in emergency effort to keep both the patient and myself safe throughout the COVID-19 pandemic. During this emergent initiation of Telemedicine, the office of civil rights has loosened the laws on HIPAA compliance to accommodate the continuation of medical care across the [place] throughout the COVID-19 pandemic. [facility] Telemedicine - TP Consent Established: Telehealth Consent Kristin Ordoñez is an established patient of [facility], and was made aware co-pays and co-insurance are waived due to COVID-19, as well as, the potential privacy risks with the use of third-green party applications as a result of this Telehealth visit. The patient has verbalized consent to proceed with a Telehealth visit via audio only due to the patient was unable to establ delon video calling. History of Present IllnessRecent test/procedures: Patient was asked and denies having any tests since their last visit. Patient was asked and denies being seen by any Physicians since their last visit. The patient was last seen by a [facility] provider on 12/02/2019. At today's visit patient presents with their Self Patient is currently working. The patient is being seen for a workers compensation follow-up. The workers compensation date of injury is 07/10/2010. Pain Quality: (Neuropathic) burning Pain Quality: (Nociceptive) dull Timing: constant Palliation: opioid analgesics Condition type: The patient is being seen for a chronic condition. PAIN LOCATION: the pain is located in the neck, the pain is in the neck more than the arms, the pain is located in the low back and the pain is in the back more than legs. The etiology of this injury/condition is related to an injury / accident. INJURY SETTING: at work. INJURY MECHANISM: The injury resulted from lifting, twisting and repetitive motion. REVIEW OF PAST DIAGNOSTICS: have included: MRI. PAST TREATMENT has included: OPIOID ANALGESICS (effective). ASSOCIATED SYMPTOMS: include muscle pain/spasm and radiating. FUNCTIONAL LIMITATIONS: The patient's functional status is limited as follows: ability to participate in aerobic activity, participate in hobbies and perform housework. MEDICATION SIDE EFFECTS experienced by patient are: no known medication side effects. Review of SystemsROS was reviewed with patient; documented on established patient questionnaire dated 02/23/2020. I feel the ROS to be negative/normal other than ROS was reviewed with patient; I feel the ROS to be negative/normal other than Musculoskeletal and neurological. Patient maintains at today's visit there has been no change in his/her hematologic history. Active Problems 1. Bulging lumbar disc (722.10) (M51.26) 2. Cervical radiculopathy (723.4) (M54.12) 3. Chronic low back pain (724.2,338.29) (M54.5,G89.29) 4. Chronic pain (338.29) (G89.29) 5. Chronic pain of right knee (719.46,338.29) (M25.561,G89.29) 6. correction current use of opiate analgesic (V58.69) (Z79.891) 7. Lumbar radiculopathy (724.4) (M54.16) 8. Neck pain (723.1) (M54.2) 9. Psychological factors affecting medical condition (316) (F54) 10. Restless legs syndrome (333.94) (G25.81) 11. Spinal stenosis of lumbar region with neurogenic claudication (724.03) (M48.062) 12. Spondylolisthesis of lumbar region (738.4) (M43.16) Allergies Penicillins Swelling;; Recorded By: Dina Fletcher; 08/21/2015 12:46:31 PMDenied Adhesive Tape Recorded By: Dina Fletcher; 08/21/2015 12:46:31 PM Iodinated Contrast Media Recorded By: Dina Fletcher; 08/21/2015 12:46:31 PM Latex Recorded By: Dina Fletcher; 08/21/2015 12:46:31 PM Current Meds Aspirin 81 MG TABS;Therapy: (Recorded:50Vxu0930) to Recorded Gabapentin 300 MG Oral Capsule; take one capsule BID x 1 week then TID after thatdaily MDD:3;Therapy: 02Dec2019 to (Evaluate:31Mar2020) Requested for: 02Dec2019; LastRx:02Dec2019 Ordered Lidocaine 5 % External Patch; apply 1- 2 patches to affected area on 12 hrs off 12 hrs.MDD:2;Therapy: 35Xwk0371 to (Evaluate:07Sep2019) Requested for: 28Pfc5085; LastRx:37Qbo1454 OrderedFormulary Override Reason: Drug has been unsuccessful in the past Multi-Vitamin TABS;Therapy: (Recorded:84Dmm4286) to Recorded Olmesartan Medoxomil TABS;Therapy: (Recorded:60Sgy4275) to Recorded [place]-3 CAPS;Therapy: (Recorded:88Shl9956) to Recorded tiZANidine HCl - 4 MG Oral Capsule; TAKE 1 TABLET 3 TIMES DAILY NEEDED MDD:3;Therapy: 21Igx9634 to (Evaluate:07May2020) Requested for: 07Feb2020; LastRx:07Feb2020 OrderedFormulary Override Reason: Drug has been unsuccessful in the past traMADol HCl - 50 MG Oral Tablet; Take 1 tablet po TID prn pain MDD:3;Therapy: 58Shg5024 to (Evaluate:01Feb2020) Requested for: 03Dec2019; LastRx:03Dec2019 OrderedLD pt states "Probably about 3 weeks ago" Vitamin B-12 TABS;Therapy: (Recorded:[id number]) to Recorded Vitamin D3 TABS;Therapy: (Recorded:46Zls4007) to Recorded Past Medical History Denied: History of blood coagulation disorder History of depression (V11.8) (Z86.59) History of Not currently (V49.89) (Z78.9) Denied: History of On anticoagulant therapy Surgical History Denied: History of Cardio-Defib Pulse Gen Venous Attach Electrode To Prev PlacedDefibrillator History of Eyelid Excision And Repair History of Gastric Surgery History of Hysterectomy 10/2010 History of Knee Replacement 04/18/15 Denied: History of Pacemaker Placement Family History Family history of diabetes mellitus (V18.0) (Z83.3) Family history of hypertension (V17.49) (Z82.49) Family history of malignant neoplasm (V16.9) (Z80.9) Social History Current non-drinker of alcohol (V49.89) (Z78.9) Denied: History of Drug use Never a smoker Part-time employment Retired Physical ExamGeneral: The patient is a well nourished/well developed, female, who is obese, who is in no acute distress and appears stated age. Telemedicine: Given the nature of this telehealth visit, the patient was asked to perform the following commands in order to assess the chief complaint. While performing these maneuvers, the patient exhibited the following: Assessment 1. Chronic pain (338.29) (G89.29) 2. Bulging lumbar disc (722.10) (M51.26) 3. Spinal stenosis of lumbar region with neurogenic claudication (724.03) (M48.062) 4. Spondylolisthesis of lumbar region (738.4) (M43.16) 5. Lumbar radiculopathy (724.4) (M54.16) 6. Chronic low back pain (724.2,338.29) (M54.5,G89.29) 7. Cervical radiculopathy (723.4) (M54.12) 8. Neck pain (723.1) (M54.2) Plan 1. Renew: traMADol HCl - 50 MG Oral Tablet; Take 1 tablet po TID prn pain MDD:3LD pt states "Probably about 3 weeks ago" 2. Follow-up in 2 months Follow Up Follow-up Status: Complete Done: [id number] Appointment for 15 or 30 minutes : Schedule 15 minute appointment Medication:. 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 Patient has been informed. Controlled Substance Prescribed: TRAMADOL . CONTROLLED SUBSTANCE INFORMATION: I advised the patient today/previously regarding treatment with the above controlled substance and/or narcotic. The patient was then informed of the risks, benefits, and alternatives of the narcotic. The risks discussed included but were not limited to physical and/or psychological dependence, tolerance of the medication, drowsiness, sleepiness, balance/coordination problems, confusion, allergic reaction or any other abnormal symptoms. The patient was advised and agreed to use the medication only as prescribed, and not to drive, or operate heavy equipment or machinery. The patient understood and consented to both undergo a narcotic/opiate regimen and agreed to sign and comply with all of the [facility] terms of a controlled substance treatment and agreement. Patient has received a copy of the Opioid instruction sheet. Patient has been counseled on the changes made to their controlled substance and agrees to continue compliance with the controlled substance agreement previously signed. There are no changes in current medications at this visit. Patient instructed to continue current regimen. Treatment includes: FOLLOW UP: The patient should have a follow up visit in 2 months. 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 TIme:. Time: Start time: 3:00 P.M. End time: 3:06. P.M. Discussion/SummaryPatient was assessed today via phone call. This w as originally supposed to be a video called but she was not connected. Patient was very quick on the phone. Patient was informed we would schedule her for a two-month follow-up. Patient stated she would continue with her current medications and she was doing really good. Patient states her understanding and is in agreement with the treatment plan. Work / School NotePATIENT: if you submit this to your employer as an out of work note please be aware this includes PHI (Protected Health Information). The patient is working at this time. The incident described by the patient is a competent medical cause of this injury. The patient's complaints are consistent with the history of the injury/illness. The patient's history of the injury/illness is consistent with my objective findings. Patient is on permanent disability. Disability rating is 75 %. Marked/severe. Dragon DisclaimerNYSWC Verious Disclaimer: This document was dictated and electronically signed using [employer] software. A reasonable attempt at proof reading has been made to minimize errors. Please call with any questions. Signatures Electronically signed by : Marcos Jacobs NP; Feb 23 2020 2:46PM EST (Author) Electronically signed by : Valeria Escamilla MD; Feb 25 2020 10:37AM EST Electronically signed by : Marcos Jacobs NP; Mar 22 2020 12:52PM EST (Author) Electronically signed by : Valeria Escamilla MD; Mar 23 2020 8:37AM EST Name Value Range Interpretation Code Description Data Tiana rce(s) Supporting Document(s) ID Date Data Source [id number] 12/30/2019 07:58:00 AM EST [facility] ([facility]) Name Value Range Interpretation Code Description Data Tiana rce(s) Supporting Document(s) Thyrotropin [Units/volume] in Serum or Plasma 3.29 uIU/mL 0.47-5.01 [facility] ([facility]) Is patient fasting? Y ID Date Data Source [id number] 12/30/2019 07:58:00 AM EST [facility] ([facility]) Name Value Range Interpretation Code Description Data Tiana rce(s) Supporting Document(s) Triglycerides 116 mg/dL 35-160 [facility] ([facility]) Is patient fasting? Y Cholesterol 131 mg/dL 131-200 [facility] ([facility]) Is patient fasting? Y Cve Panel Laboratory test result [facility] ([facility]) Is patient fasting? Y HDL 63 mg/dL 29-86 [facility] ([facility]) Is patient fasting? Y Risk Factor 2.1 3.2-4.4 Below low normal [facility] ([facility]) Is patient fasting? Y LDL 56 mg/dL 65-175 Below low normal [facility] ([facility]) Is patient fasting? Y LDL/HDL 0.89 1.47-3.22 Below low normal [facility] ( [facility]) Is patient fasting? Y ID Date Data Source [id number] 12/30/2019 07:58:00 AM EST [facility] ([facility]) Name Value Range Interpretation Code Description Data Tiana rce(s) Supporting Document(s) Comprehensive Metabo Laboratory test result [facility] ([facility]) Is patient fasting? Y Chloride 107 meq/L 98-107 [facility] ([facility]) Is patient fasting? Y Sodium 146 meq/L 134-153 [facility] ([facility]) Is patient fasting? Y Potassium 4.1 meq/L 3.6-5.0 [facility] ([facility]) Is patient fasting? Y Co2 28 meq/L 22-30 [facility] ([facility]) Is patient fasting? Y BUN 22 mg/dL 7-21 Above high normal [facility] ([facility]) Is patient fasting? Y Glucose 96 mg/dL 65-110 [facility] ([facility]) Is patient fasting? Y Total Protein 6.4 g/dL 6.3-8.2 [facility] ([facility]) Is patient fasting? Y Creatinine 0.8 mg/dL 0.7-1.5 [facility] ([facility]) Is patient fasting? Y BUN/Creat 28 8-27 Above high normal [facility] ([facility]) Is patient fasting? Y A/G Ratio 1.9 0.8-2.0 [facility] ([facility]) Is patient fasting? Y Albumin 4.2 g/dL 3.9-5.0 [facility] ([facility]) Is patient fasting? Y Globulin 2.2 GM/DL 2.4-3.2 Below low normal [facility] ( [facility]) Is patient fasting? Y Alkaline Phos 122 U/L 38-126 [facility] ([facility]) Is patient fasting? Y Calcium 9.9 mg/dL 8.4-10.2 [facility] ([facility]) Is patient fasting? Y Total Bili Laboratory test result 0.2-1.3 [facility] ([facility]) Is patient fasting? Y Anion Gap 11.0 mmol/L 8.0-16.0 [facility] ([facility]) Is patient fasting? Y SGPT/Alt 22 U/L 7-56 [facility] ([facility]) Is patient fasting? Y Sgot/Ast 19 U/L 5-40 [facility] ([facility]) Is patient fasting? Y Afr Amer GFR Laboratory test result [facility] ([facility]) Is patient fasting? Y Age 64 yrs [facility] ([facility]) Is patient fasting? Y Non-Aa GFR Laboratory test result [facility] ([facility]) Is patient fasting? Y ID Date Data Source [id number] 12/30/2019 04:59:00 PM [facility] Name Value Range Interpretation Code Description Data Tiana rce(s) Supporting Document(s) Thyrotropin [Units/volume] in Serum or Plasma by Detec tion limit <= 0.05 mIU/L 3.29 uIU/mL 0.47 - 5.01 [facility] ID Date Data Source [id number] 12/30/2019 04:53:00 PM [facility] Value Range Interpretation Code Description Data Tiana rce(s) Supporting Document(s) CVE PANEL [facility] al LIPID PANEL Cholesterol [Mass/volume] in Serum or Plasma 131 MG/DL 131 - 200 [facility] Deprecated Triglyceride [Mass/volume] in Serum or Plasma 116 MG/DL 3 5 - 160 [facility] HDL 63 MG/DL 29 - 86 [facility] al Cholesterol in LDL/Cholesterol in HDL [Mass Ratio] in Serum or Plasma 56 mg/dL 65 - 175 L [facility] Cholesterol.total/Cholesterol in HDL [Mass Ratio] in Serum o r Plasma 2.1 3.2 - 4.4 L [facility] LDL/HDL 0.89 1.47 - 3.22 L [facility] CVE RISK CHOL/HDL LDL/HDLMEN: 1/2 AVERAGE 3.43 1.00 AVERAGE 4.97 3.55 2X AVERAGE 9.55 6.25 3X AVERAGE 23.99 7.99WOMEN: 1/2 AVERAGE 3.27 1.47 AVERAGE 4.44 3.22 2X AVERAGE 7.05 5.03 3X AVERAGE 11.04 6.14 ID Date Data Source [id number] 12/30/2019 04:53:00 PM [facility] Value Range Interpretation Code Description Data Tiana rce(s) Supporting Document(s) COMPREHENSIVE METABOLIC PANEL [facility] COMPREHENSIVE METABOLIC PANEL Sodium [Moles/volume] in Serum or Plasma 146 mEq/L 134 - 153 [facility] Potassium [Moles/volume] in Serum or Plasma 4.1 mEq/L 3.6 - 5.0 [facility] Chloride [Moles/volume] in Serum or Plasma 107 mEq/L 98 - 107 [facility] Carbon dioxide, total [Moles/volume] in Serum or Plasma 28 MEQ/L 22 - 30 [facility] Glucose [Mass/volume] in Serum or Plasma 96 MG/DL 65 - 110 [facility] BUN 22 MG/DL 7 - [address] [facility] al Creatinine [Mass/volume] in Serum or Plasma 0.8 MG/DL 0.7 - 1.5 [facility] BUN/CREAT 28 8 - 27 H [facility] Protein [Mass/volume] in Serum or Plasma 6.4 G/DL 6.3 - 8.2 [facility] Albumin [Mass/volume] in Serum or Plasma 4.2 G/DL 3.9 - 5.0 [facility] Globulin [Mass/volume] in Serum by calculation 2.2 GM/DL 2.4 - 3.2 L [facility] A/G RATIO 1.9 0.8 - 2.0 [facility] Calcium [Mass/volume] in Serum or Plasma 9.9 MG/DL 8.4 - 10.2 [facility] Bilirubin.total [Mass/volume] in Serum or Plasma <0.7 MG/DL 0.2 - 1.3 [facility] Alkaline phosphatase [Enzymatic activity/volume] in Serum or Plasma 122 U/L 38 - 126 [facility] Aspartate aminotransferase [Enzymatic activity/volume] in Serum or Plasma 19 U/L 5 - 40 [facility] Alanine aminotransferase [Enzymatic activity/volume] in Seru m or Plasma 22 U/L 7 - 56 [facility] Anion gap 3 in Serum or Plasma 11.0 mmol/L 8.0 - 16.0 [facility] AGE 64 yrs [facility] NON-AA GFR >60 mL/min [facility] ital AFR AMER GFR >60 [facility] Male GFR In terprentation 20-49 yrs >60 mL/min Normal 50-59 yrs >56 mL/min Normal 60-69 yrs >49 mL/min Normal 70-79yrs >42 mL/min Normal 80 and above >35 mL/min Normal Female GFR Interpretation 20-39 yrs >60 mL/min Normal 40-49 yrs >58 mL/min Normal 50-59 yrs >51 mL/min Normal 60-69 yrs >45 mL/min Normal 70-79 yrs >39 mL/min Normal 80 and above >32 mL/min Normal ID Date Data Source [id number] 12/28/2019 09:17:00 AM EST [facility] ([facility]) Name Value Range Interpretation Code Description Data Tiana rce(s) Supporting Document(s) Mammo Screening Bilateral with CAD <pending> [facility] ([facility]) Mammo Diagnostic CAD Bilateral <pending> [facility] ([facility]) ID Date Data Source [id number] 12/28/2019 08:40:00 AM EST [facility] ([facility]) Name Value Range Interpretation Code Description Data Tiana rce(s) Supporting Document(s) Lab - Specimen Rejec [facility] Specimen Integrity/Specimen Recollection The patient sample needs to be resubmitted for the following reason: Test(s) Ordered Laboratory test result [facility] ([facility]) CMP, TSH, CVE PANEL Rejection Reason Laboratory test result [facility] ([facility]) Specimen Hemolyzed { One or more of the tests you ordered cannot be performed. { Please recollect, reorder, and resubmit if needed. ID Date Data Source [id number] 12/28/2019 08:40:00 AM EST [facility] ([facility]) Name Value Range Interpretation Code Description Data Tiana rce(s) Supporting Document(s) Hemoglobin A1c/Hemoglobin.total in Blood 5.2 % 4.4-6.1 [facility] ([facility]) {A1] {HB] ID Date Data Source [id number] 12/28/2019 08:40:00 AM EST [facility] ([facility]) Name Value Range Interpretation Code Description Data Tiana rce(s) Supporting Document(s) CBC W/Automated Diff Laboratory test result [facility] ([facility]) COMPLETE BLOOD COUNT RBC 4.51 10^6/uL 4.20-5.40 [facility] ([facility]) WBC 6.2 10^3/uL 4.2-11.0 [facility] ([facility]) Hemoglobin 13.6 g/dL 12.0-16.0 [facility] ([facility]) Hematocrit 43.7 % 37.0-47.0 [facility] ([facility]) MCV 96.9 fL 81.0-101 [facility] ([facility]) RDW 14.0 % 11.5-14.5 [facility] ([facility]) MCHC 31.1 g/dL 31.0-36.0 [facility] ([facility]) MCH 30.2 pg 27.0-34.0 [facility] ([facility]) Platelets 242 10^3/uL 150-450 [facility] ([facility]) MPV 10.0 fL 7.4-10.4 [facility] ([facility]) Neut 64.8 % 37.0-80.0 [facility] ([facility]) Lymph 25.4 % 25.0-40.0 [facility] ([facility]) Baso 0.6 % 0.0-2.5 [facility] ([facility]) Eos 1.9 % 0.0-7.0 [facility] ([facility]) [place] 7.0 % 3.0-8.0 [facility] ([facility]) %NRBC 0.0 % 0.0-0.0 [facility] ([facility]) %Ig 0.3 % 0.0-0.0 Above high normal [facility] ([facility]) #Neut 3.99 10^3/uL 2.00-6.90 [facility] ([facility]) #Lymph 1.57 10^3/uL 0.60-3.40 [facility] ([facility]) #Baso 0.04 10^3/uL 0.00-0.20 [facility] ([facility]) #Eos 0.12 10^3/uL 0.00-0.70 [facility] ([facility]) #[place] 0.43 10^3/uL 0.00-0.90 [facility] Manual Diff Laboratory test result [facility] ([facility]) #Ig 0.02 10^3/uL 0.00-0.10 [facility] ([facility]) #NRBC 0.00 10^3/uL 0.00-0.00 [facility] ([facility]) RBC Morph Laboratory test result [facility] ([facility]) ID Date Data Source [id number] 12/28/2019 06:59:00 PM [facility] Name Value Range Interpretation Code Description Data Tiana rce(s) Supporting Document(s) LAB - SPECIMEN REJECTION [facility] Specimen Integrity/Specimen Recollection The patient sample needs to be resubmitted for the following reason: Test(s) Ordered CMP, TSH, CVE PANEL [facility] Rejection Reason Specimen Hemolyzed [facility] { One or more of the tests you ordered cannot be performed.{ Please recollect, reorder, and resubmit if needed. ID Date Data Source [id number] 12/28/2019 06:56:00 PM [facility] Name Value Range Interpretation Code Description Data Tiana rce(s) Supporting Document(s) Hemoglobin A1c/Hemoglobin.total in Blood 5.2 % 4.4 - 6.1 [facility] {A1]{HB] ID Date Data Source [id number] 12/28/2019 06:39:00 PM [facility] Name Value Range Interpretation Code Description Data Tiana rce(s) Supporting Document(s) CBC W/AUTOMATED DIFF [facility] COMPLETE BLOOD COUNT Leukocytes [#/volume] in Blood by Automated count 6.2 10^3/uL 4.2 - 1 1.0 [facility] Erythrocytes [#/volume] in Blood by Automated count 4.51 10^6/uL 4. 20 - 5.40 [facility] Hemoglobin [Mass/volume] in Blood 13.6 g/dL 12.0 - 16.0 [facility] Hematocrit [Volume Fraction] of Blood by Automated count 43.7 % 3 7.0 - 47.0 [facility] Erythrocyte mean corpuscular volume [Entitic volume] by Auto mated count 96.9 fL 81.0 - 101 [facility] Erythrocyte mean corpuscular hemoglobin [Entitic mass] by Automated count 30.2 pg 27.0 - 34.0 [facility] Erythrocyte mean corpuscular hemoglobin concentration [Mass/volume] by Automated count 31.1 g/dL 31.0 - 36.0 [facility] Erythrocyte distribution width [Ratio] by Automated count 14.0 % 11.5 - 14.5 [facility] Platelets [#/volume] in Blood by Automated count 242 10^3/uL 150 - 45 0 [facility] Platelet mean volume [Entitic volume] in Blood by Automated count 10.0 fL 7.4 - 10.4 [facility] Neutrophils/100 leukocytes in Blood by Automated count 64.8 % 37. 0 - 80.0 [facility] Lymphocytes/100 leukocytes in Blood by Manual count 25.4 % 25.0 - 40.0 [facility] Monocytes/100 leukocytes in Blood by Automated count 7.0 % 3.0 - 8.0 [facility] Eosinophils/100 leukocytes in Blood by Automated count 1.9 % 0.0 - 7.0 [facility] Basophils/100 leukocytes in Blood by Automated count 0.6 % 0.0 - 2.5 [facility] %IG 0.3 % 0.0 - 0.0 [facility] %NRBC 0.0 % 0.0 - 0.0 [facility] al Neutrophils [#/volume] in Blood by Automated count 3.99 10^3/uL 2.00 - 6.90 [facility] Lymphocytes [#/volume] in Blood by Automated count 1.57 10^3/uL 0.60 - 3.40 [facility] Monocytes [#/volume] in Blood by Automated count 0.43 10^3/uL 0.00 - 0.90 [facility] Eosinophils [#/volume] in Blood by Automated count 0.12 10^3/uL 0.00 - 0.70 [facility] Basophils [#/volume] in Blood by Automated count 0.04 10^3/uL 0.00 - 0.20 [facility] #IG 0.02 10^3/uL 0.00 - 0.10 [facility] #NRBC 0.00 10^3/uL 0.00 - 0.00 [facility] MANUAL DIFF NOT INDICATED [facility] RBC MORPH NOT INDICATED [facility] spital ID Date Data Source [id number] 12/02/2019 03:48:36 PM EST [facility], PCName: Silvano StoneoDOB: 1955Provider: Fabrice HerreraElaine: 12/02/2019 Chief ComplaintPatient is here with chronic low back pain and to review the injection from 10/06/19 that radiates down the left leg Chief Complaint 2NYSW VAS PAIN Established: MA completing section: Luis Powell SUPERVISOR 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 Creatinine has been ordered as well for specimen validity, not for kidney function. Preliminary UDS results are not final and should not be used to determine patient care or plan of treatment. Initially a qualitative immunoassay screen will be done. Please note this is not a dip test. Any positive findings or negative findings that are out of compliance will be further tested with a more comprehensive quantitative confirmation LCMS study. It is part of the normal prescribing protocol of controlled substances and is considered standard of care. Recent test/procedures: Patient was asked and denies having any tests since their last visit. Patient was asked and denies being seen by any Physicians since their last visit. At today's visit patient presents with their Self Patient is currently working. The patient is being seen for a workers compensation follow- up. The workers compensation date of injury is 10/24/2005. Pain Quality: (Neuropathic) burning and pins and needles Pain Quality: (Nociceptive) aching, sharp and stabbing Timing: constant Palliation: resting/laying down Exacerbating: sitting, standing and walking Pain Score: a current pain level of 8/10. Condition type: The patient is being seen for a chronic condition. PAIN LOCATION: the pain is located in the low back and radiates to the left buttock, left thigh, left knee, left calf/samano and left big toe. INJURY SETTING: at work. REVIEW OF PAST DIAGNOSTICS: have included: diagnostic selective nerve block. - Nerve Block: Pertinent Information LUMBAR, INTERLAMINAR (STEROID INJECTION). Targeting the L4 L5 level . >80 % of pain relief was provided lasting for 2 weeks. Allows patient to increase activity and functionality including the following activities for longer periods of time with less pain: standing. (10/06/19) INTERVAL EVENTS: include . 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 She does have >80% improvement with the lumbar interlaminar injection where it lasted for 2 weeks with improved standing. ASSOCIATED SYMPTOMS: include no fecal incontinence and no urinary incontinence. Review of SystemsROS was reviewed with patient; documented on established patient questionnaire dated 12/02/2019. I feel the ROS to be negative/normal other than Pertinent for musculoskeletal pain. Patient maintains at today's visit there has been no change in his/her hematologic history. Active Problems 1. Bulging lumbar disc (722.10) (M51.26) 2. Cervical radiculopathy (723.4) (M54.12) 3. Chronic low back pain (724.2,338.29) (M54.5,G89.29) 4. Chronic pain (338.29) (G89.29) 5. 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 Lumbar radiculopathy (724.4) (M54.16) 8. Neck pain (723.1) (M54.2) 9. Psychological factors affecting medical condition (316) (F54) 10. Restless legs syndrome (333.94) (G25.81) 11. Spinal stenosis of lumbar region with neurogenic claudication (724.03) (M48.062) 12. Spondylolisthesis of lumbar region (738.4) (M43.16) Allergies Penicillins Swelling;; Recorded By: Dina Fletcher; 08/21/2015 12:46:31 PMDenied Adhesive Tape Recorded By: Dina Fletcher; 08/21/2015 12:46:31 PM Iodinated Contrast Media Recorded By: Dina Fletcher; 08/21/2015 12:46:31 PM Latex Recorded By: Dina Fletcher; 08/21/2015 12:46:31 PM Current Meds Aspirin 81 MG TABS;Therapy: (Recorded:31Zlc8631) to Recorded Lidocaine 5 % External Patch; apply 1- 2 patches to affected area on 12 hrs off 12 hrs.MDD:2;Therapy: 83Adf6631 to (Evaluate:07Sep2019) Requested for: 81Jps1753; LastRx:[id number] OrderedFormulary Override Reason: Drug has been unsuccessful in the past Multi-Vitamin TABS;Therapy: (Recorded:46Fll5836) to Recorded Olmesartan Medoxomil TABS;Therapy: (Recorded:36Yyi2018) to Recorded [place]-3 CAPS;Therapy: (Recorded:20Xzb4288) to Recorded tiZANidine HCl - 4 MG Oral Capsule; TAKE 1 TABLET 3 TIMES DAILY NEEDED MDD:3;Therapy: 59Dwo4007 to (Evaluate:70Pqs2337) Requested for: 30Sep2018; LastRx:30Sep2018 OrderedFormulary Override Reason: Drug has been unsuccessful in the past traMADol HCl - 50 MG Oral Tablet; Take 1 tablet po TID prn pain MDD:3;Therapy: 51Auq0995 to (Evaluate:82Vpw5005) Requested for: 24Yyy7475; LastRx:22Ijz1251 OrderedLD pt states "Probably about 3 weeks ago" Vitamin B-12 TABS;Therapy: (Recorded:[id number]) to Recorded Vitamin D3 TABS;Therapy: (Recorded:[id number]) to Recorded Past Medical History Denied: History of blood coagulation disorder History of depression (V11.8) (Z 86.59) History of Not currently (V49.89) (Z78.9) Denied: History of On anticoagulant therapy Surgical History Denied: History of Cardio-Defib Pulse Gen Venous Attach Electrode To Prev PlacedDefibrillator History of Eyelid Excision And Repair History of Gastric Surgery History of Hysterectomy 10/2010 History of Knee Replacement 04/18/15 Denied: History of Pacemaker Placement Family History Family history of diabetes mellitus (V18.0) (Z83.3) Family history of hypertension (V17.49) (Z82.49) Family history of malignant neoplasm (V16.9) (Z80.9) Social History Current non-drinker of alcohol (V49.89) (Z78.9) Denied: History of Drug use Never a smoker Part-time employment Retired VitalsVital Signs Recorded: 02Dec2019 03:16PM Height: 5 ft 1 inWeight: 215 lb BMI Calculated: 40.62BSA Calculated: 1.95Systolic: 169, SittingDiastolic: 91, SittingHeart Rate: 65Respiration: 16Height measured w/wo shoes: w/shoesPain Scale: 8 Physical ExamGeneral: The patient is a well nourish ed/well developed, female, with a medium build, who is in no acute distress and appears stated age. Eyes: Lids are atraumatic, no lesions, sclerae are anicteric. Ears, Nose, Mouth, Throat: external ears and nose without trauma. Gait and Station: Gait was normal. The patient can get on/off the table without assistance. Respiratory: Normal chest expansion and respiratory effort. Lumbosacral Spine: Spinal alignment exhibits a loss of normal lordosis. - Palpation/Tenderness: Tenderness on palpation of the LEFT: paraspinal , but negative left sciatic notch and negative left sacroiliac joint. - Palpation/Te nderness: Tenderness on palpation of the RIGHT: paraspinal , but negative right sciatic notch and negative right sacroiliac joint. Palpatory Findings include no bilateral muscle spasms and no trigger points were noted.Right Lower Extremity Motor:Left Lower Extremity Motor:Neurological:. Skin: Warm, dry, acyanotic. Psychological: Alert and oriented to person, place and time. Mood and affect are pleasant and appropriate. Judgement intact. Insight normal without delusions or hallucinations. Denies suicidal/homicidal ideation. Assessment 1. Chronic low back pain (724.2,338.29) (M54.5,G89.29) 2. correction current use of opiate analgesic (V58.69) (Z79.891) 3. Lumbar radiculopathy (724.4) (M54.16) Plan 1. Start: Gabapentin 300 MG Oral Capsule; take one capsule BID x 1 week then TID after that daily MDD:3 2. Renew: traMADol HCl - 50 MG Oral Tablet; Take 1 tablet po TID prn pain MDD:3LD pt states "Probably about 3 weeks ago" Medication:. 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 Patient has been informed. General Medications Prescribed: GABAPENTIN . GENERAL MEDICATIONS: I advised the patient today/previously regarding treatment with the above medication(s). The risks, benefits, common side effects and alternative treatments were discussed with the patient. The provider verbalized with the patient. The patient verbalized understanding and was told to call if there were any untoward effects. (Patient will trial a few hours before bed to see if it makes her tired or dizzy)Controlled Substance Prescribed: TRAMADOL . CONTROLLED SUBSTANCE INFORMATION: I advised the patient today/previously regarding treatment with the above controlled substance and/or narcotic. The patient was then informed of the risks, benefits, and alternatives of the narcotic. The risks discussed included but were not limited to physical and/or psychological dependence, tolerance of the medication, drowsiness, sleepiness, balance/coordination problems, confusion, allergic reaction or any other abnormal symptoms. The patient was advised and agreed to use the medication only as prescribed, and not to drive, or operate heavy equipment or machinery. The patient understood and consented to both undergo a narcotic/opiate regimen and agreed to sign and comply with all of the [facility] te melisa of a controlled substance treatment and agreement. The prescribed medications are medically necessary for pain management and rehabilitation. UDS: This is an established patient and is on ongoing opioid therapy. A UDS is being obtained today, the patient has previously consented to UDS as part of the Controlled Substance and Treatment Agreement. The reason for today's UDS is: patient was selected at random and scored as low risk on the opioid risk assessment. Creatinine has been ordered as well for specimen validity, not for kidney function. Preliminary UDS results are not final and should not be used to determine patient care or plan of treatment. Initially a qualitative immunoassay screen will be done. Any positive findings or negative findings that are out of compliance will be further tested with a more comprehensive quantitative confirmation LCMS study. It is part of the normal prescribing protocol of controlled substances and is considered standard of care. Treatment includes: PROCEDURE(S): the patient is not a candidate for block/procedures at this time FOLLOW UP: The patient already has a follow-up appointment. - GEEK SQUAD AGENT: The patient was counseled on the following: treatment plan and test results. 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 She does have >80% improvement with the lumbar interlaminar injection where it lasted for 2 weeks with improved standing. Patient will trial gabapentin 300 mg 3 times a day for her radicular symptoms. Refill of her tramadol was given today. She already has a follow-up appointment with her provider and will check and see how she is doing with the gabapentin and Tylenol [id number] for her pain. Patient is in agreement to treatment plan. Work / School NotePATIENT: if you submit this to your employer as an out of work note please be aware this includes PHI (Protected Health Information). The patient is working at this time. The incident described by the patient is a competent medical cause of this injury. The patient's complaints are consistent with the history of the injury/illness. The patient's history of the injury/illness is consistent with my objective findings. Patient is on permanent disability. Disability rating is 75 %. Marked/severe. Dragon DisclaimerNYSWC Verious Disclaimer: This document was dictated and electronically signed using Tipser Speaking software. A reasonable attempt at proof reading has been made to minimize errors. Please call with any questions. Signatures Electronically signed by : Berenice Herrera PA-C; Dec 02 2019 3:31PM EST (Author) Electronically signed by : Zev Putnam MD; Dec 02 2019 3:48PM EST Name Value Range Interpretation Code Description Data Tiana rce(s) Supporting Document(s) Procedure Social History Code Duration Value Status Description Data Source(s ) Smoking 12/07/2020 12:00:00 AM EST Never Smoker completed Never S kyle eCW1 ([facility]) Smoking 09/21/2020 12:00:00 AM EDT Never Smoker completed Never S kyle eCW1 ([facility]) Smoking 06/21/2020 12:00:00 AM EDT Never Smoked A Pipe complet ed Never Smoked A Pipe MEDENT ([facility]) Smoking 06/21/2020 12:00:00 AM EDT Patient has never smoked co mpleted Patient has never smoked [facility] ([facility]) Vital Signs ID Date Data Source UNK Name Value Range Interpretation Code Description Data Source(s) Body surface area Derived from formula 1.98 m2 1.98 m2 [facility] ([facility]) Body mass index (BMI) [Ratio] 39.5 kg/m2 39.5 k g/m2 [facility] ([facility]) Body height 62 [in_i] 62 [in_i] MED[facility] ([facility]) 5'2" Body weight 97.978 kg 97.978 kg [facility] ([facility]) Body weight 216.00 [lb_av] 216.00 [lb_av] MEDEN T ([facility]) Oxygen saturation in Arterial blood by Pulse oximetry 98 % 98 % [facility] ([facility]) Respiratory rate 18 /min 18 /min [facility] ( [facility]) Body temperature 97.2 [degF] 97.2 [degF] [facility] ([facility]) Heart rate 64 /min 64 /min MED[facility] ([facility]) Diastolic blood pressure 70 mm[Hg] 70 mm[Hg] [facility] ([facility]) Systolic blood pressure 118 mm[Hg] 118 mm[Hg] M EDENT ([facility]) Diastolic blood pressure 86 mm[Hg] 86 mm[Hg] eCW1 ([facility]) Systolic blood pressure 134 mm[Hg] 134 mm[Hg] e CW1 ([facility]) Body mass index (BMI) [Ratio] 39.5 kg/m2 39.5 k g/m2 eCW1 ([facility]) Body height 62 [in_i] 62 [in_i] eCW1 ([facility]) Body weight 216 [lb_av] 216 [lb_av] eCW1 ([facility]) Body surface area Derived from formula 1.98 m2 1.98 m2 MED[facility] ([facility]) Body mass index (BMI) [Ratio] 39.8 kg/m2 39.8 k g/m2 [facility] ([facility]) Body height 62 [in_i] 62 [in_i] MED[facility] ([facility]) 5'2" Body weight 98.601 kg 98.601 kg MED[facility] ([facility]) Body weight 217.38 [lb_av] 217.38 [lb_av] MEDEN T ([facility]) Oxygen saturation in Arterial blood by Pulse oximetry 97 % 97 % [facility] ([facility]) Respiratory rate 18 /min 18 /min [facility] ( [facility]) Body temperature 97.5 [degF] 97.5 [degF] [facility] ([facility]) Heart rate 60 /min 60 /min [facility] ([facility]) Diastolic blood pressure 88 mm[Hg] 88 mm[Hg] [facility] ([facility]) Systolic blood pressure 150 mm[Hg] 150 mm[Hg] M EDENT ([facility]) Body surface area 1.98 m2 1.98 m2 [facility] ([facility]) Body surface area Derived from formula 1.99 m2 1.99 m2 [facility] ([facility]) Body mass index (BMI) [Ratio] 40.3 kg/m2 40.3 k g/m2 [facility] ([facility]) Body height 62 [in_i] 62 [in_i] MEDENT ([facility]) 5'2" Body weight 99.962 kg 99.962 kg MED[facility] ([facility]) Body weight 220.38 [lb_av] 220.38 [lb_av] MEDEN T ([facility]) Oxygen saturation in Arterial blood by Pulse oximetry 98 % 98 % [facility] ([facility]) Respiratory rate 18 /min 18 /min [facility] ( [facility]) Body temperature 97.6 [degF] 97.6 [degF] [facility] ([facility]) Heart rate 62 /min 62 /min MED[facility] ([facility]) Diastolic blood pressure 64 mm[Hg] 64 mm[Hg] [facility] ([facility]) Systolic blood pressure 118 mm[Hg] 118 mm[Hg] M EDENT ([facility]) Body surface area 1.99 m2 1.99 m2 [facility] ([facility]) Body surface area 1.97 m2 1.97 m2 [facility] Body mass index (BMI) [Ratio] 39.3 kg/m2 39.3 k g/m2 [facility] ([facility]) Body height 62 [in_i] 62 [in_i] MED[facility] ([facility]) 5'2" Body weight 97.524 kg 97.524 kg MED[facility] ([facility]) Body weight 215.00 [lb_av] 215.00 [lb_av] MEDEN T ([facility]) Oxygen saturation in Arterial blood by Pulse oximetry 98 % 98 % [facility] ([facility]) Respiratory rate 16 /min 16 /min [facility] ( [facility]) Body temperature 97.7 [degF] 97.7 [degF] [facility] ([facility]) Heart rate 74 /min 74 /min [facility] ([facility]) Diastolic blood pressure 62 mm[Hg] 62 mm[Hg] [facility] ([facility]) Systolic blood pressure 128 mm[Hg] 128 mm[Hg] M EDENT ([facility]) Diastolic blood pressure 72 mm[Hg] 72 mm[Hg] eCW1 ([facility]) Systolic blood pressure 124 mm[Hg] 124 mm[Hg] e CW1 ([facility]) Body mass index (BMI) [Ratio] 41.56 kg/m2 41.56 kg/m2 eCW1 ([facility]) Body height 61.5 [in_us] 61.5 [in_us] eCW1 ([facility]) Body weight Measured 223.6 [lb_av] 223.6 [lb_av ] W1 ([facility]) Body surface area 1.97 m2 1.97 m2 [facility] ([facility]) Body mass index (BMI) [Ratio] 39.3 kg/m2 39.3 k g/m2 [facility] Body height 62 [in_i] 62 [in_i] MED[facility] ([facility]) 5'2" Body weight 97.524 kg 97.524 kg [facility] ([facility]) Body weight 215.00 [lb_av] 215.00 [lb_av] MEDEN T ([facility]) Oxygen saturation in Arterial blood by Pulse oximetry 97 % 97 % [facility] ([facility]) Respiratory rate 18 /min 18 /min [facility] ( [facility]) Body temperature 97.8 [degF] 97.8 [degF] [facility] ([facility]) Heart rate 74 /min 74 /min [facility] Diastolic blood pressure 62 mm[Hg] 62 mm[Hg] [facility] ([facility]) Systolic blood pressure 116 mm[Hg] 116 mm[Hg] M EDENT ([facility]) Body surface area 1.98 m2 1.98 m2 [facility] ([facility]) Body mass index (BMI) [Ratio] 39.5 kg/m2 39.5 k g/m2 [facility] Body height 62 [in_i] 62 [in_i] [facility] ([facility]) 5'2" Body weight 97.978 kg 97.978 kg [facility] ([facility]) Body weight 216.00 [lb_av] 216.00 [lb_av] MEDEN T ([facility]) Oxygen saturation in Arterial blood by Pulse oximetry 98 % 98 % [facility] ([facility]) Respiratory rate 20 /min 20 /min [facility] ( [facility]) Body temperature 98.1 [degF] 98.1 [degF] [facility] ([facility]) Heart rate 70 /min 70 /min [facility] Diastolic blood pressure 80 mm[Hg] 80 mm[Hg] [facility] ([facility]) Systolic blood pressure 140 mm[Hg] 140 mm[Hg] M EDENT ([facility]) Diastolic blood pressure 76 mm[Hg] 76 mm[Hg] eCW1 ([facility]) Systolic blood pressure 132 mm[Hg] 132 mm[Hg] e CW1 ([facility]) Body mass index (BMI) [Ratio] 40.89 kg/m2 40.89 kg/m2 eCW1 ([facility]) Body height 61.5 [in_us] 61.5 [in_us] eCW1 ([facility]) Body weight Measured 220 [lb_av] 220 [lb_av] eC W1 ([facility]) Body surface area 1.98 m2 1.98 m2 [facility] ([facility]) Body mass index (BMI) [Ratio] 39.5 kg/m2 39.5 k g/m2 [facility] ([facility]) Body height 62 [in_i] 62 [in_i] MEDENT ([facility]) 5'2" Body weight 98.034 kg 98.034 kg MED[facility] ([facility]) Body weight 216.12 [lb_av] 216.12 [lb_av] MEDEN T ([facility]) Oxygen saturation in Arterial blood by Pulse oximetry 97 % 97 % [facility] ([facility]) Respiratory rate 18 /min 18 /min [facility] ( [facility]) Body temperature 98.1 [degF] 98.1 [degF] [facility] ([facility]) Heart rate 62 /min 62 /min [facility] ([facility]) Diastolic blood pressure 82 mm[Hg] 82 mm[Hg] [facility] ([facility]) Systolic blood pressure 130 mm[Hg] 130 mm[Hg] M EDENT ([facility]) Patient Treatment Plan of Care Planned Activity Planned Date Details Description Data Source (s) Acetaminophen 325 MG / Oxycodone Hydrochloride 5 MG Or al Tablet [Percocet] 12/16/2020 12:00:00 AM EST eCW1 ([facility]) Ibuprofen 800 MG Oral Tablet 12/16/2020 12:00:00 AM EST eCW1 ([facility])
[2020-12-29 06:36] LABS: HEMATOCRIT 41.6 % (36.0-47.0); HEMOGLOBIN 14.3 g/dl (12.0-15.5); MEAN CORPUSCULAR HEMOGLOBIN 32.7 pg (27.0-33.0); MEAN CORPUSCULAR HGB CONC 34.4 g/dl (32.0-36.5); MEAN CORPUSCULAR VOLUME 95.2 fl (80.0-96.0); PLATELET COUNT, AUTOMATED 205 10^3/uL (150-450); RED BLOOD COUNT 4.37 10^6/uL (4.00-5.40); WHITE BLOOD COUNT 5.3 10^3/uL (4.0-10.0)
[2020-12-29] MEDS ORDERED: ceFAZolin 2 GM/D5W 50 ML IV BAG (J0690 PER 500MG) As Ordered ONE (06:41)
[2020-12-29] MEDS ORDERED: LR 1,000 ML IV ONE (07:00)
[2020-12-29] MEDS ORDERED: BUPIVACAINE/EPIN 0.25% 30 ML VIAL As Ordered ONE (07:18)
[2020-12-29] MEDS ORDERED: metroNIDAZOLE/NACL 500MG(5MG/ML) 100ML BAG (S0030) As Ordered ONE (07:23)
[2020-12-29] MEDS ORDERED: CIPROFLOXACIN/D5W 400 MG/200 ML BAG (J0744) As Ordered ONE (07:23)
[2020-12-29] MEDS ORDERED: LIDOCAINE 2% 100MG/5ML SDV (FOR ANES.) As Ordered ONE (07:27)
[2020-12-29] MEDS ORDERED: KETOROLAC 60MG 2ML VIAL As Ordered ONE (07:27)
[2020-12-29] MEDS ORDERED: propofoL 500 MG/50 ML VIAL As Ordered ONE (07:27)
[2020-12-29] MEDS ORDERED: dexameTHASONE 4 MG/ML 1ML VIAL (J1100 PER 1MG) As Ordered ONE (07:27)
[2020-12-29] MEDS ORDERED: ACETAMINOPHEN 1000MG 100ML IV BTL (OFIRMEV) (J0131 PER 10MG) As Ordered ONE (07:27)
[2020-12-29] MEDS ORDERED: ONDANSETRON 4MG/2ML VIAL As Ordered ONE (07:27)
[2020-12-29] MEDS ORDERED: fentaNYL 100 MCG/2 ML INJECTION (J3010) As Ordered ONE (07:28)
[2020-12-29] MEDS ORDERED: MIDAZOLAM INJ 2MG/2ML VIAL (J2250 PER 1MG) As Ordered ONE (07:28)
[2020-12-29] MEDS ORDERED: CIPROFLOXACIN 400 MG in IV 1 EA IV ONE (07:45)
[2020-12-29] MEDS ORDERED: metroNIDAZOLE 500 MG in IV 1 EA IV ONE (09:00)
[2020-12-29] MEDS ORDERED: PERCOCET 5MG/325MG TAB PO PRN ×2 (09:30)
[2020-12-29] MEDS ORDERED: LR 1,000 ML IV SCH (09:30)
[2020-12-29] MEDS ORDERED: fentaNYL 100 MCG/2 ML INJECTION (J3010) IV PRN (09:30)
[2020-12-29] MEDS ORDERED: METOCLOPRAMIDE INJ 10MG/2ML VIAL (J2765 PER 1) IV PRN (09:30)
[2020-12-29] MEDS ORDERED: ONDANSETRON 4MG/2ML VIAL IV PRN (09:30)
[2020-12-29] MEDS ORDERED: GLYCOPYRROLATE INJ 0.2 MG/ML 2 ML VIAL As Ordered ONE (09:42)
--- NOTE | 2020-12-29 11:39 | ROOPDOC ---
[facility] Report Of Operation Report of Operation DATE OF PROCEDURE: 12/29/20 PREPROCEDURE DIAGNOSES: . POSTPROCEDURE DIAGNOSES: . PROCEDURE: . SURGEON: , VEGETABLE TRIMMER: , ANESTHESIA: . ESTIMATED BLOOD LOSS: Approximately mL. COMPLICATIONS: . REMARKS: . PROCEDURE NOTE: . DESCRIPTION OF PROCEDURE: . ROSETTA PONCE MD. Dec 29, 2020 11:39
[2020-12-29 13:56] VITALS: BP 144/76
== END 2020-12-29 13:59 | disposition home or self-care (01) ==
LOC: M SDC 06:08
PROVIDERS: ATTEND Obstetrics & Gynecology
DX: N81.6 Rectocele (principal); I10 Essential (primary) hypertension; E78.5 Hyperlipidemia, unspecified; K21.9 Gastro-esophageal reflux disease without esophagitis; Z79.82 Long term (current) use of aspirin; Z79.899 Other long term (current) drug therapy; Z98.84 Bariatric surgery status; Z88.0 Allergy status to penicillin; Z88.5 Allergy status to narcotic agent
CPT/HCPCS: 36415; 57250; 85027; 86850; 86900; 86901; 88302; J0131; J0744; J1100; J1885; J2250; J2405; J3010

== ENCOUNTER → 2021-03-15 | Outpatient (CLI) | payer MEDICARE, BC, OTHER ==
--- NOTE | 2021-03-15 10:18 | REPMRS ---
Patient History The patient states she had a clinical breast exam in 02/2021. Family history of colorectal cancer at age 50 or over in father. Benign excisional biopsy of the left breast, 1981. No Hormone Replacement Therapy Patient states no breast complaints today. Patient has signed MRS History Sheet. Digital Woman Screen Mammo: March 15, 2021 - Exam #: [id number] Bilateral CC and MLO view(s) were taken. Technologist: Jodie Salas, Technologist Prior study comparison: January 18, 2020, diagnostic bilateral mammo performed at [facility]. February 02, 2019, bilateral digital woman screen mammo performed at [facility]. FINDINGS: There are scattered fibroglandular densities. Screening. Digital screening (2D) mammography was performed bilaterally in the CC and MLO projections. Additionally, breast tomosynthesis (3D mammography) was performed bilaterally in the CC and MLO projections. Todays exam was compared to the prior exams(s). By history, the patient has no complaints of a palpable breast abnormality or other significant breast complaints. The breasts are unchanged in size and shape. There are no mildred-soft tissue densities or spiculated masses. There is no mildred internal architectural distortion.Once again, stable benign appearing calcifications are seen. There are no suspicious mildred-calcific clusters. Skin thickening or nipple retraction is not present. IMPRESSION: BI-RADS Category 2- Benign Findings(s). There is no evidence of malignant alteration of the breasts. Followup examination recommended in one year. The Volpara volumetric breast density category is B, there are scattered areas of fibroglandular density. This mammogram was read with the assistance of [facility],an FDA approved computer aided detection system for mammography. The lifetime Tyrer-Cuzick score is 5.5% Negative x-ray reports should not delay surgical consultation if a dominant or clinically suspicious mass is present. Not all breast cancers can be identified by mammography. Therefore, we recommend that you continue to perform regular breast self-examination and physical examination and then promptly contact your physician of any concerns or changes. Adenosis and dense breasts may obscure an underlying neoplasm. Assessment: BI-RADS/ACR category 2 mammogram. Benign Findings. Recommendation Routine screening mammogram of both breasts in 1 year. Electronically Signed By: Geo Rossi, 03/15/21 [id number]
== END ==
LOC: M WHC 07:35
PROVIDERS: ATTEND Nurse Practitioner Women's Health
DX: Z12.31 Encounter for screening mammogram for malignant neoplasm of breast (principal); Z80.0 Family history of malignant neoplasm of digestive organs; Z86.018 Personal history of other benign neoplasm; R92.1 Mammographic calcification found on diagnostic imaging of breast
CPT/HCPCS: 77063; 77067; G0463

== ENCOUNTER → 2022-07-22 | Outpatient (CLI) | payer MEDICARE, OTHER | LOC: M WHC 10:14 | PROVIDERS: ATTEND Obstetrics & Gynecology | DX: Z12.31 Encounter for screening mammogram for malignant neoplasm of breast (principal) ==

== ENCOUNTER 2023-04-17 11:36 | Day surgery (SDC) | payer MEDICARE, BC, OTHER ==
[~2023-04-17] VITALS: Ht 157.5 cm; Wt 98.0 kg
[~2023-04-17 11:36] MED LIST changes: +D 10CHW PO; -FURO40TA2; +FURO40TA2 PO; +LEVO50TA5 PO; +NS 1,000 ML IV ONE; +OMEP40CA4 PO; +PRAM0.754 PO; -TIZA4CAP; +TIZA4CAP PO; +VITMTA PO
[2023-04-17] MEDS ORDERED: fentaNYL 100 MCG/2 ML INJECTION As Ordered ONE (13:32)
[2023-04-17] MEDS ORDERED: LIDOCAINE 2% 100MG/5ML SDV (FOR ANES.) As Ordered ONE (13:57)
[2023-04-17] MEDS ORDERED: propofoL 200 MG/20 ML VIAL As Ordered ONE (13:57)
[2023-04-17 14:10] VITALS: BP 191/86
== END 2023-04-17 14:23 | disposition home or self-care (01) ==
LOC: M OPP 11:36
PROVIDERS: ATTEND Surgery
DX: Z12.11 Encounter for screening for malignant neoplasm of colon (principal); K57.30 Diverticulosis of large intestine without perforation or abscess without bleeding; K30 Functional dyspepsia; Z98.84 Bariatric surgery status; Z79.02 Long term (current) use of antithrombotics/antiplatelets; Z79.01 Long term (current) use of anticoagulants; Z79.82 Long term (current) use of aspirin; Z79.890 Hormone replacement therapy; Z79.899 Other long term (current) drug therapy; Z88.0 Allergy status to penicillin; Z88.5 Allergy status to narcotic agent
CPT/HCPCS: 43235; G0105; J3010

== ENCOUNTER → 2023-06-04 | Outpatient (CLI) | payer MEDICARE, BC, OTHER ==
[~2023-06-04] MED LIST changes: -NS 1,000 ML IV ONE
== END ==
LOC: M RAD 11:58
PROVIDERS: ATTEND Registered Nurse
DX: F45.8 Other somatoform disorders (principal)

== ENCOUNTER → 2023-06-30 | Outpatient (CLI) | payer MEDICARE, BC, OTHER ==
[~2023-06-30] MED LIST changes: -AMIT25TA17 PO; +AMIT25TA19 PO; +LIDOCAINE 1% MDV 20ML VIAL As Ordered ONE
[2023-06-30 12:45] VITALS: TEMP 98.1
[2023-06-30 13:38] VITALS: BP 132/80; O2SAT 99
== END ==
LOC: M IRPRO 12:31
PROVIDERS: ATTEND Otolaryngology
DX: D44.0 Neoplasm of uncertain behavior of thyroid gland (principal)

== ENCOUNTER → 2023-07-31 | Outpatient (CLI) | payer MEDICARE, BC, OTHER ==
[~2023-07-31] MED LIST changes: -LIDOCAINE 1% MDV 20ML VIAL As Ordered ONE
== END ==
LOC: M WHC 15:03
PROVIDERS: ATTEND Nurse Practitioner Family
DX: Z12.31 Encounter for screening mammogram for malignant neoplasm of breast (principal)

== ENCOUNTER → 2023-11-10 | Outpatient (CLI) | payer MEDICARE, BC, OTHER ==
[2023-11-10 12:35] LABS: BLOOD UREA NITROGEN 29 MG/DL (9-23); CALCIUM LEVEL 9.9 MG/DL (8.3-10.6); CARBON DIOXIDE LEVEL 26 MMOL/L (20-31); CHLORIDE LEVEL 113 MMOL/L (98-107); GLOMERULAR FILTRATION RATE > 60.0 (>45); GLUCOSE, FASTING 98 MG/DL (74-106); POTASSIUM SERUM 4.6 MMOL/L (3.5-5.1); SODIUM LEVEL 144 MMOL/L (136-145)
[2023-11-10 12:37] LABS: FREE T4 1.18 NG/DL (0.89-1.76); THYROID STIMULATING HORMONE 2.548 uIU/ML (0.55-4.78)
== END ==
LOC: M WUC 09:29
PROVIDERS: ATTEND Registered Nurse
DX: E04.9 Nontoxic goiter, unspecified (principal); I10 Essential (primary) hypertension; E03.9 Hypothyroidism, unspecified

== ENCOUNTER 2024-07-12 06:58 | Day surgery (SDC) | payer MEDICARE, BC ==
[~2024-07-12] VITALS: Ht 157.5 cm; Wt 96.9 kg
[2024-07-12] VITALS (8 sets, daily range): BP systolic 59–149; BP diastolic 62–70; TEMP 97–97.6; O2SAT 96–100
[~2024-07-12 06:58] MED LIST changes: +ACETAMINOPHEN 1000MG 100ML IV BAG As Ordered ONE; +IRBE300T25 PO; -IRBE300T7 PO; +LIDOCAINE 2% 100MG/5ML SDV (FOR ANES.) As Ordered ONE; +MIDAZOLAM INJ 2MG/2ML VIAL As Ordered ONE; +PHEN-239 PO; +ROCURONIUM BROMIDE 50MG/5ML VIAL As Ordered ONE; +THERTAB52 PO; +fentaNYL 100 MCG/2 ML INJECTION As Ordered ONE
[2024-07-12] MEDS ORDERED: LR 1,000 ML IV SCH (07:15)
[2024-07-12 07:47] LABS: HEMATOCRIT 36.7 % (36.0-47.0); HEMOGLOBIN 12.6 g/dl (12.0-15.5); MEAN CORPUSCULAR HGB CONC 34.3 g/dl (32.0-36.5); MEAN CORPUSCULAR VOLUME 96.1 fl (80.0-96.0); PLATELET COUNT, AUTOMATED 205 10^3/uL (150-450); RED BLOOD COUNT 3.82 10^6/uL (4.00-5.40); WHITE BLOOD COUNT 5.3 10^3/uL (4.0-10.0)
[2024-07-12] MEDS ORDERED: SUCCINYLCHOLINE 100MG/5ML SYRINGE As Ordered ONE (08:44)
[2024-07-12] MEDS: ceFAZolin SOD 2 GM in IV 1 EA IV ONE (08:46)
[2024-07-12] MEDS: fentaNYL 100 MCG/2 ML INJECTION IV PRN (10:14)
[2024-07-12] MEDS ORDERED: ONDANSETRON 4MG 2ML VIAL IV PRN (10:15)
[2024-07-12] MEDS: LR 1,000 ML IV SCH (10:17)
[2024-07-12] MEDS: ONDANSETRON 4MG 2ML VIAL IV PRN (10:17)
[2024-07-12] MEDS: oxyCODONE 5MG TAB PO PRN (10:36)
[2024-07-12] MEDS ORDERED: HYDROMORPHONE HCL 0.5 MG/ 0.5 ML SYRINGE IV PRN (11:10)
[2024-07-12] MEDS: HYDROMORPHONE HCL 0.5 MG/ 0.5 ML SYRINGE IV PRN (11:17)
[2024-07-12] MEDS: KETOROLAC 30 MG/ML 1ML VIAL IV SCH (16:11)
[2024-07-13 02:00] VITALS: BP 128/60; TEMP 97.8; O2SAT 8; O2SAT 98
[2024-07-13 06:00] VITALS: BP 143/64; TEMP 98.9; O2SAT 96
[2024-07-13] MEDS ORDERED: PILL CUTTER 1 EACH XX PRN (06:40)
[2024-07-13] MEDS: PERCOCET 5MG/325MG TAB PO PRN (06:55)
== END 2024-07-13 12:10 | disposition home or self-care (01) ==
LOC: M SDC 06:58 → M OBS 15:10 → M SDC 07-13 12:10
PROVIDERS: ATTEND Obstetrics & Gynecology
DX: N81.6 Rectocele (principal); I10 Essential (primary) hypertension; E78.00 Pure hypercholesterolemia, unspecified; E03.9 Hypothyroidism, unspecified; K21.9 Gastro-esophageal reflux disease without esophagitis; M19.90 Unspecified osteoarthritis, unspecified site; Z88.5 Allergy status to narcotic agent; Z79.899 Other long term (current) drug therapy; Z79.82 Long term (current) use of aspirin; Z79.890 Hormone replacement therapy
CPT/HCPCS: 36415; 57250; 85027; 86850; 86900; 86901; 88302; J0131; J0330; J0665; J0690; J1100; J1170; J1885; J2250; J2405; J3010

== ENCOUNTER → 2024-08-04 | Outpatient (CLI) | payer MEDICARE, BC ==
[~2024-08-04] MED LIST changes: -ACETAMINOPHEN 1000MG 100ML IV BAG As Ordered ONE; -LIDOCAINE 2% 100MG/5ML SDV (FOR ANES.) As Ordered ONE; -MIDAZOLAM INJ 2MG/2ML VIAL As Ordered ONE; -ROCURONIUM BROMIDE 50MG/5ML VIAL As Ordered ONE; -fentaNYL 100 MCG/2 ML INJECTION As Ordered ONE
== END ==
LOC: M WHC 07:55
PROVIDERS: ATTEND Nurse Practitioner Family
DX: Z01.419 Encounter for gynecological examination (general) (routine) without abnormal findings (principal); Z12.31 Encounter for screening mammogram for malignant neoplasm of breast; R92.313 Mammographic fatty tissue density, bilateral breasts; Z13.820 Encounter for screening for osteoporosis; M85.852 Other specified disorders of bone density and structure, left thigh; M85.851 Other specified disorders of bone density and structure, right thigh
CPT/HCPCS: 77063; 77067; 77080; G0101

== ENCOUNTER → 2024-08-04 | Outpatient (CLI) | payer MEDICARE, BC | LOC: M WHC 07:55 | PROVIDERS: ATTEND Nurse Practitioner Family | DX: Z12.31 Encounter for screening mammogram for malignant neoplasm of breast (principal) ==

== ENCOUNTER → 2025-07-07 | Outpatient (CLI) | payer MEDICARE, BC ==
[~2025-07-07] MED LIST changes: +AMLO-751 PO; -AMLO10TA PO; +GABA-1172 PO; -GABA-282 PO; -PHEN-239 PO; +PHEN37.511 PO; +SENN-225 PO; -SENO8.6T5 PO
== END ==
LOC: M RAD 12:42
PROVIDERS: ATTEND Otolaryngology
DX: D44.0 Neoplasm of uncertain behavior of thyroid gland (principal)

== ENCOUNTER → 2025-08-08 | Outpatient (CLI) | payer MEDICARE, BC | LOC: M WHC 08:32 | PROVIDERS: ATTEND Nurse Practitioner Family | DX: Z12.31 Encounter for screening mammogram for malignant neoplasm of breast (principal); R92.313 Mammographic fatty tissue density, bilateral breasts ==